=== PATIENT | female | born 1970 | race Caucasian/White ===

== ENCOUNTER → 2018-11-09 10:59 | Outpatient (CLI) | payer BC, SELFPAY ==
[2018-11-09 12:07] LABS: Hemoglobin A1c 7.8 % (4.2-6.3)
[2018-11-09 12:11] LABS: ALB/GLOB Ratio 0.9 RATIO (0.9-2.4); AST(SGOT) 14 U/L (15-37); Alanine Aminotransfer ALT/SGPT 26 U/L (13-56); Albumin, Serum 3.7 g/dL (3.2-5.0); Alkaline Phosphatase 126 U/L (45-117); Anion Gap 11 (5-15); BUN 10 mg/dL (7-18); BUN/Creat Ratio 12.8 RATIO (10-20); Calcium,Total 8.9 mg/dL (8.5-10.1); Chloride 106 mmol/L (98-107); Creatinine, Serum 0.78 mg/dL (0.55-1.02); EST Glomerular Filtration Rate 84 mL/min (>60); Est Glom Filt Rate - Afr Amer 102 mL/min (>60); Globulin 4.1 g/dL (2.2-4.2); Glucose 128 mg/dL (74-106); Potassium 3.8 mmol/L (3.5-5.1); Protein, Total 7.8 g/dL (6.4-8.2); Sodium Level 143 mmol/L (136-145); Thyroid Stim Hormone (TSH) 2.57 uIU/mL (0.358-3.74)
--- OUTSIDE RECORDS SUMMARY | 2019-02-11 00:15 | XMS RPT_ITS ---
:1970 Author Organization [facility] Care Team Providers Name Role Phone Stacy Bullard PA-C Attending Unavailable Stacy Bullard PA-C Referring Unavailable Stacy Bullard PA-C Primary Care Unavailable PROBLEMS PROBLEMS DATE TYPE CONDITION / CODE ATTENDING STATUS SOURCE 11/09/2018 Unknown E11.9 - Type 2 Stacy Bullard diabetes mellitus PA-C [facility] complications / Repository E11.9(ICD-10) 11/09/2018 Unknown E03.9 - [place] Stacypresley Abraham Hypothyroidism, PA-C Community unspecified / Hospital E03.9(ICD-10) Repository PROCEDURES PROCEDURES No Procedure Records FoundRESULTS RESULTS HEMOGLOBIN A1C Collected: 11/09/2018 Status: F Source: [place] 11:11 AM [facility] REPOSITORY TYPE CODE TESTS RESULT OUT OF RANGE REFERENCE UNITS LAB L501.9985 4.2-6.3 % High HGB A1C 7.8 Performed By: #### L501.9985 #### [facility] [address] [place], [address] COMPREHENSIVE METABOLIC Collected: 11/09/2018 Status: F Source: [facility] 11:11 AM [facility] REPOSITORY TYPE CODE TESTS RESULT OUT OF RANGE REFERENCE UNITS LAB L501.0100 74-106 mg/dL High GLU 128 Result Comment: Fasting Glucose result greater than or equal to 126 mg/dL suggests DIABETES MELLITUS per A.D.A. criteria. Please note revised GLUCOSE reference range effective 2017. LAB L501.1000 7-18 mg/dL Normal BUN 10 LAB L501.1100 0.55-1.02 mg/dL Normal CREAT,SERUM 0.78 Result Comment: The validity of the calculated GFR AND GFRAA in patients over 70 years has not been determined. Clinical correlation is essential. LAB L501.1110 >60 mL/min Normal EST GFR 84 Result Comment: Non- GFR Calc LAB L501.1115 >60 mL/min Normal EST GFR - AA 102 Result Comment: GFR Calc LAB L501.1300 10-20 RATIO Normal BUN/CRE 12.8 LAB L501.1500 6.4-8.2 g/dL T Normal PROT 7.8 LAB L501.1800 3.2-5.0 g/dL Normal ALB 3.7 LAB L501.1950 2.2-4.2 g/dL Normal GLOB 4.1 LAB L501.2000 0.9-2.4 RATIO Normal A/G 0.9 LAB L501.2200 8.5-10.1 mg/dL CA Normal 8.9 LAB L501.4100 15-37 U/L Low AST 14 LAB L501.4305 45-117 U/L High ALK P 126 LAB L501.4405 13-56 U/L Normal ALT 26 LAB L501.4600 0.20-1.00 mg/dL T Normal BILI 0.40 LAB L501.5300 136-145 mmol/L NA Normal 143 LAB L501.5600 3.5-5.1 mmol/L K Normal 3.8 LAB L501.5900 98-107 mmol/L CL Normal 106 LAB L501.6100 21.0-32.0 mmol/L Normal CO2 26.0 LAB L501.6200 5-15 Normal GAP 11 Performed By: #### L500.4050, L501.9520 #### [facility] [address] [place], [place], [id number] THYROID STIM HORMONE Collected: 11/09/2018 Status: F Source: [facility] ([facility]) 11:11 AM [facility] REPOSITORY TYPE CODE TESTS RESULT OUT OF RANGE REFERENCE UNITS LAB L501.9520 0.358-3.74 uIU/mL Normal TSH 2.57 Performed By: #### L500.4050, L501.9520 #### [facility] [address] [place], [address] ALLERGIES ALLERGIES No Allergies Records FoundENCOUNTERS ENCOUNTERS ADMIT/DISCHARGE ACCOUNT ADMITTING ENCOUNTER LOCATION SOURCE NUMBER CLASS 11/09/2018 [id number] Ambulatory [place] [facility] 8 [facility] ing:LAB Repository PAYERS PAYERS ENCOUNTER GUARANTOR PAYER SUBSCRIBER SOURCE 11/09/2018 Mark Amin219 Primary Mark Abraham Home Insurance:ANTHEMPolic HallDOB: Counts Include [address] [facility] larissa Hoskins Number: [id number] [address]Nip: [id number] Repository tuyet Date:[id number] () [address], [place] [address]AF: 11/09/2018 Secondary NOT GIVENCAYETANO Dom[facility] Insurance:SELF PAY [facility] Number: Effective Repository Date:2018-11-09
== END ==
PROVIDERS: Family Provider Family Medicine; PCP Family Medicine; Referring Provider Family Medicine; Visit Provider Family Medicine
DX: E03.9 Hypothyroidism, unspecified (principal); E11.9 Type 2 diabetes mellitus without complications
CPT/HCPCS: 36415; 80053; 83036; 84443

== ENCOUNTER 2019-03-24 19:35 | Emergency (ER) | payer BC, SELFPAY ==
[2019-03-24 19:36] VITALS: BP 159/103; PULSE 97; RESP 20; TEMP 36.6; O2SAT 95; BMI 48.6
[2019-03-24 20:16] LABS: Color, Urine Yellow (Yellow); Glucose, Dipstick Normal (Normal); Ketone-Dipstick 5 mg/dl (Negative); Leukocyte Esterase-Dipstick 25 /ul (Negative); Nitrite-Dipstick Negative (Negative); Occult Blood-Urine 25 /ul (Negative); Protein-Dipstick 30 mg/dl (Negative); Urine Clarity Clear (Clear); Urine Urobilinogen 1 mg/dl (Normal)
[2019-03-24 20:19] LABS: Urine Bilirubin Dipstick 1 mg/dL (Negative)
[2019-03-24 20:22] LABS: Bacteria 1+ /hpf (None Seen); Mucous, Urine 1+ /hpf (<or=2+); Red Blood Cells-Urine 0-5 SEEN /hpf (0-5); Squamous Epithelial Cells - UA 5-10 SEEN /hpf (5-10); White Blood Cells 0-5 SEEN /hpf (0-5)
[2019-03-24 20:22] LABS: Absolute Lymphocyte Count 1.68 X10^3/ul (0.83-4.51); Absolute Neutrophil Count 10.8 X10^3/uL (2.0-7.7); Basophil# 0.03 X10^3/uL; Basophil% 0.2 % (0-1); Eosinophil# 0.23 X10^3/uL; Eosinophils% 1.7 % (0-5); Hematocrit 39.4 % (37-47); Hemoglobin 13.1 g/dl (12.0-15.0); Lymphocyte # 1.68 X10^3/ul (4.0); Lymphocyte % 12.5 % (19-41); Mean Corp Hgb Conc 33.2 g/gl (32-36); Mean Corpuscular Hgb 29.7 pg (27.0-32.0); Mean Corpuscular Volume 89.3 fL (81-99); Mean Platelet Vol. 9.9 fl (6.2-12.0); Monocyte# 0.67 X10^3/uL; Neutrophil # 10.77 X10^3/uL (2.7-7.7); Neutrophil % 80.4 % (47-70); Platelet Count 260 K/mm3 (150-450); RBC Distribution Width CV 13.5 % (11.6-14.6); RBC Distribution Width SD 44.2 fl (35.1-43.9); Red Blood Count 4.41 M/mm3 (4.2-5.4); White Blood Count 13.4 K/mm3 (4.4-11.0)
[2019-03-24 20:24] LABS: POSITIVE COUNT NO; POSITIVE DIFFERENTIAL NO; POSITIVE MORPHOLOGY NO
[2019-03-24 20:37] LABS: Anion Gap 5 (5-15); BUN 12 mg/dL (7-18); BUN/Creat Ratio 10.9 RATIO (10-20); Calcium,Total 9.5 mg/dL (8.5-10.1); Chloride 103 mmol/L (98-107); EST Glomerular Filtration Rate 56 mL/min (>60); Est Glom Filt Rate - Afr Amer 68 mL/min (>60); Estimated Creatinine Clearance 63.78 ml/min; Glucose 208 mg/dL (74-106); Sodium Level 136 mmol/L (136-145)
[2019-03-24 20:40] LABS: Internal QC Validated? YES +Cl - CLEAR BKGD; Pregnancy, Serum, hCG Quali. NEGATIVE Negative
[2019-03-24 20:51] VITALS: BP 137/78; PULSE 91; RESP 15; O2SAT 97
[2019-03-24 21:00] LABS: Bedside Glucose 245 mg/dL (70-110)
--- NOTE | 2019-03-24 21:55 | US_ITS ---
STUDY: ABDOMINAL ULTRASOUND - RIGHT UPPER QUADRANT REASON FOR VISIT: Female, 48 years old. Abdominal pain. TECHNIQUE: Ultrasound evaluation of the right upper quadrant was performed with real-time and static ocampo-scale imaging. TECHNICAL QUALITY: Adequate. COMPARISON: None. FINDINGS: Liver: The liver measures 22.8 cm. There is increased echogenicity consistent with fatty infiltration. The bile ducts are within normal limits. There is hepatic color flow. The direction of portal flow is hepatopetal. There is no demonstrated mass lesion. Gallbladder: Normal distended gallbladder. The gallbladder wall measures 2.6 mm. There is a negative sonographic Paz's sign. There is no pericholecystic fluid. There are multiple echogenic structures within the gallbladder, consistent with multiple gallstones. Common Bile Duct (C.B.D.): The common bile duct measures 5.0 mm. Pancreas: Normal size of the head, body and tail of the pancreas. There is normal echogenicity of the pancreas. There is no demonstrated pancreatic mass or cyst. Right Kidney: Normal size of the right kidney. The right kidney measures 13.4 cm in length. Normal renal cortex. There is no demonstrated renal mass or cyst. There is no right hydronephrosis. US/Gallbladder IMPRESSION: Fatty infiltration of the liver associated with hepatomegaly. Cholelithiasis with no associated gallbladder wall thickening, pericholecystic fluid nor positive sonographic Paz's sign. Electronically Signed: Neelima Mary MD at 22:43 EDT Tel , Service support ,
[2019-03-24 22:38] LABS: AST(SGOT) 14 U/L (15-37); Alanine Aminotransfer ALT/SGPT 26 U/L (13-56); Albumin, Serum 4.2 g/dL (3.2-5.0); Alkaline Phosphatase 135 U/L (45-117); Bilirubin, Direct 0.11 mg/dL (0.00-0.30); Globulin 3.9 g/dL (2.2-4.2); Protein, Total 8.1 g/dL (6.4-8.2)
[2019-03-24 22:48] VITALS: BP 130/57; PULSE 78; RESP 16; O2SAT 98
[2019-03-24 22:51] LABS: Lipase 82 U/L (73-393)
--- NOTE | 2019-03-24 23:24 | ED.VISSUMM ---
- ER Visit Summary Date of Service: 03/24/19 Chief Complaint: Abdominal pain History of Present Illness: The patient is a 48 F who states that she has been developing upper abdominal right upper quadrant pain with eating. She went saw her doctor today was felt this probably gallbladder nature and had a ultrasound scheduled for next week. She states that today she had some taco salad for lunch. Later in the day she began to have nausea vomiting and worsening abdominal pain. She also notes some diarrhea. Physical Examination: Afebrile vital signs are stable Gen: Well-nourished well-developed obese Head: Normocephalic atraumatic Eyes: Perrl EOMI ENT: TMs clear no rhinorrhea moist mucous membranes Neck: Supple no lymphadenopathy no JVD nontender CVS: Regular rate rhythm no murmurs normal S1-S2 Respiratory: No distress clear to auscultation bilaterally chest nontender Abdomen: Soft mildly tender in the right upper quadrant without guarding or rebound r nondistended normal bowel sounds no masses Back: Nontender Extremity: Nontender no edema Skin: Normal color no rash Neuro: alert orientated ?3 CN II-XII intact normal strength sensation reflexes gait cerebellar Psych: Normal affect normal mood Test Results: White count is 13 creatinine 1.1. Lipase negative no evidence of biliary obstruction. Ultrasound of the gallbladder demonstrated cholelithiasis with no evidence of common bile duct dilatation or pericholecystic fluid. Emergency Department Course and Treatment: I write the patient of Nolan. She is to call surgery in the morning for follow-up. Dr. Olvera is on-call tonight. Return instructions given and understood. Impression: 1. Gallstones 2. Biliary colic This note was generated with XMS Penvision dictation software. It may contain incorrect words, spelling, and punctuation that were not noted in review of the chart prior to signing ED Disposition - Plan for ED Patient: Disposition: Home or Assisted Living Instructions: What are Gallstones? Prescriptions: Hydrocodone Bitart/Apap 5-325 [[place] 5MG-325MG] 1 tab PO Q6H PRN PRN 3 Days #12 tab PRN Reason: Pain Ondansetron [Zofran Odt] 4 mg PO Q6H PRN PRN #10 tab PRN Reason: Nausea Referrals: Elizabeth Olvera MD [STAFF PHYSICIAN] - As soon as possible
--- NOTE | 2019-03-24 23:28 | ED.DCSUM_ITS ---
- ER Visit Summary Date of Service: 03/24/19 Chief Complaint: Abdominal pain History of Present Illness: The patient is a 48 F who states that she has been developing upper abdominal right upper quadrant pain with eating. She went saw her doctor today was felt this probably gallbladder nature and had a ultrasound scheduled for next week. She states that today she had some taco salad for lunch. Later in the day she began to have nausea vomiting and worsening abdominal pain. She also notes some diarrhea. Physical Examination: Afebrile vital signs are stable Gen: Well-nourished well-developed obese Head: Normocephalic atraumatic Eyes: Perrl EOMI ENT: TMs clear no rhinorrhea moist mucous membranes Neck: Supple no lymphadenopathy no JVD nontender CVS: Regular rate rhythm no murmurs normal S1-S2 Respiratory: No distress clear to auscultation bilaterally chest nontender Abdomen: Soft mildly tender in the right upper quadrant without guarding or rebound r nondistended normal bowel sounds no masses Back: Nontender Extremity: Nontender no edema Skin: Normal color no rash Neuro: alert orientated ?3 CN II-XII intact normal strength sensation reflexes gait cerebellar Psych: Normal affect normal mood Test Results: White count is 13 creatinine 1.1. Lipase negative no evidence of biliary obstruction. Ultrasound of the gallbladder demonstrated cholelithiasis with no evidence of common bile duct dilatation or pericholecystic fluid. Emergency Department Course and Treatment: I write the patient of Nolan. She is to call surgery in the morning for follow-up. Dr. Olvera is on- call tonight. Return instructions given and understood. Impression: 1. Gallstones 2. Biliary colic This note was generated with Interlude dictation software. It may contain incorrect words, spelling, and punctuation that were not noted in review of the chart prior to signing ED Disposition - Plan for ED Patient: Disposition: Home or Assisted Living Instructions: What are Gallstones? Prescriptions: Hydrocodone Bitart/Apap 5-325 [[place] 5MG-325MG] 1 tab PO Q6H PRN PRN 3 Days #12 tab PRN Reason: Pain Ondansetron [Zofran Odt] 4 mg PO Q6H PRN PRN #10 tab PRN Reason: Nausea Referrals: Elizabeth Olvera MD [STAFF PHYSICIAN] - As soon as possible
[2019-03-25 00:07] VITALS: BP 124/76; PULSE 79; RESP 16; O2SAT 99
[2019-03-25] MEDS: Ondansetron ODT 4 MG Tablet PO (00:16)
[2019-03-25] MEDS: HYDROcodone Bitartrate/Apap 5/325 Tablet PO (00:16)
== END 2019-03-25 00:19 | disposition home or self-care (01) ==
PROVIDERS: Emergency Provider Emergency Medicine; Family Provider Family Medicine; PCP Family Medicine
DX: K80.20 Calculus of gallbladder without cholecystitis without obstruction (principal); E66.9 Obesity, unspecified; K21.9 Gastro-esophageal reflux disease without esophagitis; E11.9 Type 2 diabetes mellitus without complications; Z72.0 Tobacco use; Z79.84 Long term (current) use of oral hypoglycemic drugs
CPT/HCPCS: 76705; 80048; 80076; 81001; 82962; 83690; 84703; 85025; 87086; 87088; 99283; A4216

== ENCOUNTER 2019-04-09 05:18 | Day surgery (SDC) | payer BC, SELFPAY ==
[2019-04-09] VITALS (8 sets, daily range): BP systolic 110–130; BP diastolic 65–77; PULSE 60–69; RESP 16–18; TEMP 36.2–36.9; O2SAT 92–99; BMI 47.8
--- NOTE | 2019-04-09 05:33 | EKG12_ITS ---
Test Reason : PRE-OP Blood Pressure : / mmHG Vent. Rate : 076 BPM Atrial Rate : 076 BPM P-R Int : 150 ms QRS Dur : 088 ms QT Int : 370 ms P-R-T Axes : 050 040 032 degrees QTc Int : 416 ms Normal sinus rhythm Normal ECG Confirmed by SAMIA PAEZ, ZANDRA ([id number]), managing editor [place] ([id number]) on 04/12/2019 4:32:52 PM Referred By: Elizabeth Olvera Confirmed By:ZANDRA GRACIA MD
[2019-04-09 05:51] LABS: Internal QC Validated? YES +Cl - CLEAR BKGD; Pregnancy, Urine Negative Negative
[2019-04-09 06:32] LABS: Absolute Lymphocyte Count 1.71 X10^3/ul (0.83-4.51); Absolute Neutrophil Count 4.3 X10^3/uL (2.0-7.7); Basophil# 0.04 X10^3/uL; Basophil% 0.6 % (0-1); Eosinophil# 0.25 X10^3/uL; Eosinophils% 3.7 % (0-5); Hematocrit 35.5 % (37-47); Hemoglobin 11.4 g/dl (12.0-15.0); Lymphocyte # 1.71 X10^3/ul (4.0); Lymphocyte % 25.2 % (19-41); Mean Corp Hgb Conc 32.1 g/gl (32-36); Mean Corpuscular Hgb 29.1 pg (27.0-32.0); Mean Corpuscular Volume 90.6 fL (81-99); Mean Platelet Vol. 9.9 fl (6.2-12.0); Monocyte# 0.45 X10^3/uL; Monocyte% 6.6 % (0-10); Neutrophil # 4.32 X10^3/uL (2.7-7.7); Neutrophil % 63.6 % (47-70); Platelet Count 233 K/mm3 (150-450); RBC Distribution Width CV 13.5 % (11.6-14.6); RBC Distribution Width SD 44.1 fl (35.1-43.9); Red Blood Count 3.92 M/mm3 (4.2-5.4); White Blood Count 6.8 K/mm3 (4.4-11.0)
[2019-04-09 06:34] LABS: POSITIVE COUNT NO; POSITIVE DIFFERENTIAL NO; POSITIVE MORPHOLOGY NO
[2019-04-09 06:50] LABS: Bedside Glucose 152 mg/dL (70-110)
[2019-04-09 07:09] LABS: Hemoglobin A1c 8.9 % (4.2-6.3)
--- NOTE | 2019-04-09 07:14 | PCM.DC.GB ---
Discharge Diet: No Restrictions - drink plenty of fluids, avoid carbonated beverages for a couple of days Discharge Activity: Return to Normal Activity, May not drive while taking narcotic pain medications. Return to work on:: 04/26/19 Lifting Restrictions: no lifting/pushing/pulling greater than 20 pounds for 2 weeks Call your doctor if your incision/area has: Continuous Slow Oozing, Foul Smelling Discharge Call your doctor if you observe: Fever of 101 or Higher Additional Dressing/Incision Instructions:: Leave dressings in place. May get wet in shower. Do not soak - no tub baths/swimming Additional Instructions: Recommended pain medication regimen: take 650 mg acetaminophen, then in three hours take 600 mg ibuprofen, then in three hours take 650 mg acetaminophen, then in three hours take 600 mg ibuprofen, and so on Take pain narcotic medications for breakthrough pain and at night Allergies/Adverse Reactions: Allergies adhesive tape Allergy (Verified 04/02/19 11:04) Rash cobalt Allergy (Verified 04/02/19 11:03) Anaphylaxis Latex, Natural Rubber Allergy (Verified 04/02/19 11:03) Rash nickel Allergy (Verified 04/02/19 11:03) Rash Medications to take at Discharge Levothyroxine [Synthroid] 75 mg PO DAILY 03/24/19 Metformin HCl 1,000 mg PO BID 03/24/19 Ondansetron [Zofran Odt] 4 mg PO Q6H PRN PRN #10 tab 03/24/19 Hydrocodone/Acetaminophen [Hydrocodone-Acetamin 5-325 mg] 1 tab PO Q6H PRN PRN 04/02/19 Hydrocodone/Acetaminophen [[place] 5-325 Tablet] 1 ea PO Q8 PRN 5 Days #15 tab 04/09/19 The following prescriptions were given: Hydrocodone/Acetaminophen [[place] 5-325 Tablet] 1 ea PO Q8 PRN 5 Days #15 tab PRN Reason: Mod-Severe Pain (4-09/02) Orders to be completed after discharge: ,Urine Time Frame: 04/09/19, Location: Laboratory Primary Care Physician: Stacy Bullard PA-C [Primary Care Provider] - Test Results: Test results from this visit will be discussed in further detail at your follow-up appointment, if applicable. Please Follow Up With: Elizabeth Olvera MD - call When: to be seen in 7-10 days, please call for date and time, thank you
--- NOTE | 2019-04-09 07:17 | DCINST_ITS ---
Discharge Diet: No Restrictions - drink plenty of fluids, avoid carbonated beverages for a couple of days Discharge Activity: Return to Normal Activity, May not drive while taking narcotic pain medications. Return to work on:: 04/26/19 Lifting Restrictions: no lifting/pushing/pulling greater than 20 pounds for 2 weeks Call your doctor if your incision/area has: Continuous Slow Oozing, Foul Smelling Discharge Call your doctor if you observe: Fever of 101 or Higher Additional Dressing/Incision Instructions:: Leave dressings in place. May get wet in shower. Do not soak - no tub baths/swimming Additional Instructions: Recommended pain medication regimen: take 650 mg acetaminophen, then in three hours take 600 mg ibuprofen, then in three hours take 650 mg acetaminophen, then in three hours take 600 mg ibuprofen, and so on Take pain narcotic medications for breakthrough pain and at night Allergies/Adverse Reactions: Allergies adhesive tape Allergy (Verified 04/02/19 11:04) Rash cobalt Allergy (Verified 04/02/19 11:03) Anaphylaxis Latex, Natural Rubber Allergy (Verified 04/02/19 11:03) Rash nickel Allergy (Verified 04/02/19 11:03) Rash Medications to take at Discharge Levothyroxine [Synthroid] 75 mg PO DAILY 03/24/19 Metformin HCl 1,000 mg PO BID 03/24/19 Ondansetron [Zofran Odt] 4 mg PO Q6H PRN PRN #10 tab 03/24/19 Hydrocodone/Acetaminophen [Hydrocodone-Acetamin 5-325 mg] 1 tab PO Q6H PRN PRN 04/02/19 Hydrocodone/Acetaminophen [[place] 5-325 Tablet] 1 ea PO Q8 PRN 5 Days #15 tab 04/09/19 The following prescriptions were given: Hydrocodone/Acetaminophen [[place] 5-325 Tablet] 1 ea PO Q8 PRN 5 Days #15 tab PRN Reason: Mod-Severe Pain (4-09/02) Orders to be completed after discharge: ,Urine Time Frame: 04/09/19, Location: Laboratory Primary Care Physician: Stacy Bullard PA-C [Primary Care Provider] - Test Results: Test results from this visit will be discussed in further detail at your follow- up appointment, if applicable. Please Follow Up With: Elizabeth Olvera MD - call When: to be seen in 7-10 days, please call for date and time, thank you
--- NOTE | 2019-04-09 07:30 | RAD_ITS ---
STUDY: INTRAOPERATIVE CHOLANGIOGRAM. REASON FOR EXAM: Female, 48 years old. Laparoscopic cholecystectomy. FLUOROSCOPY TIME (if supplied): (0:04) minutes/seconds TECHNIQUE: Intraoperative cholangiogram was performed by the surgeon. Imaging was submitted. COMPARISON: None. FINDINGS: The intrahepatic biliary ducts are unremarkable. The common bile duct is not dilated. No intraluminal filling defect is seen. There is free flow of contrast into the duodenum. RAD/Cholangiogram/ O R,Initial IMPRESSION: Unremarkable intraoperative cholangiogram. Electronically Signed: Miguel Beach, at 9:47 EDT , Service support ,
--- NOTE | 2019-04-09 07:30 | GALL_PTH ---
PATIENT: JOYCE TOSCANO LOC: [facility] [place] U[place][id number] AGE/SX: 48/F ROOM: RE04/09/[address]: Dr. Elizabeth Olvera MD : 1970 BED: DIS: 04/09/2019 SPEC #: [id number] RECD: 04/09/19 13:12 STATUS: RONALD REJavid #: [id number] BRENDA: 04/09/19 07:[address]: Elizabeth Olvera DEPT: SURGICAL PATHOLOGY RECD BY: Frederick Su ENTERED: 04/09/19 14:12 SP TYPE: DEQUAN HOWELL DR: Stacy Bullard PA-C Tissues: Gallbladder, NOS Procedures: Surgery Specimen Level III HEADER OPERATION: Laparoscopic cholecystectomy with IOC PRE-OP DIAGNOSIS: Right upper quadrant pain, cholelithiasis TISSUE SUBMITTED: Gallbladder MICROSCOPIC DIAGNOSIS Gallbladder, cholecystectomy: Chronic cholecystitis. CE:honey 04/13/19 MICROSCOPIC DESCRIPTION Slides are reviewed. GROSS DESCRIPTION Received is one container labeled with the patient's name and designated gallbladder. The specimen consists of a gallbladder measuring 10 x 3.5 x 3 cm. The external surface is smooth and glistening. Focally, it is granular, hemorrhagic and contains cautery artifact. The lumen of the gallbladder contains yellow-green mucoid bile and no calculi are identified. The mucosa is bile-stained and without any mass lesions. The gallbladder wall averages 0.2 cm in thickness and is free of mass lesions. Cardiac Exercise Specialist sections of the gallbladder and the cystic duct are submitted in one cassette. / AM:honey 04/12/19 TC:5 CPT: 96554
--- NOTE | 2019-04-09 08:34 | PCM.OPRPT ---
Report of Operation Date of Procedure: 04/09/19 Pre-Operative Diagnosis: cholelithiasis, abdominal pain Post-Operative Diagnosis: cholelithiasis, chronic cholecystitis Surgery/Procedure Performed:: laparoscopic cholecystectomy with cholangiograms Description of Surgical Findings:: normal intraoperative cholangiograms, chronic cholecystitis with cholelithiasis leather cartridge belt maker: Diane Martines Type of Anesthesia:: General Anesthesiologist: Nilo Alvarado Specimen's removed: gallbladder and contents Estimated Blood Loss (mL): <10 ml Fluids Replaced: 600 ml RL Description of Procedure: After informed consent was given, the patient was brought to the Operating Room. Appropriate time out protocol was followed. She was then placed in the supine position. The patient was then placed under general endotracheal anesthesia. The abdomen was then prepped with a sterile surgical skin preparation and sterile surgical drapes were placed. A skin fold superior to the umbilical dimple was grasped with penetrating clamps and the skin and subcutaneous tissues were infiltrated with 0.25% marcaine with epinephrine. A skin incision was then made with a 15 blade scalpel. The anterior abdominal wall was elevated and a Veress needle was carefully inserted into the intraabdominal cavity. It was checked to be in the proper position with a normal saline drop test. A CO2 pneumoperitoneum was then created. Once this was achieved, then the Veress needle was removed and an 11mm trocar was placed in its stead. A 10mm laparoscope was then inserted into the trocar and careful attention was directed to the intraabdominal contents. There was no evidence of injury to any intraabdominal organs from insertion of the Veress needle or the trocar. Under direct visualization, a 5mm subxiphoid trocar and two lateral 5mm right subcostal trocars were placed. The skin and subcutaneous tissues at these sites were infiltrated with 0.25% marcaine with epinephrine prior to placement of these trocars. Attention was then directed to the right upper quadrant of the abdomen. Graspers were placed in the lateral trocars to grasp the distal aspect of the gallbladder and direct it cephalad and to grasp the gallbladder at Baldwin?s pouch and direct it laterally. Dissection then began on the proximal gallbladder continuing down to the area of the triangle of Calot to bluntly dissect out the cystic duct. The neck of the gallbladder was identified and blunt dissection continued to dissect out a segment of the cystic duct. A clip was then placed on the neck of the gallbladder. A small ductotomy was then made. A Ranfac catheter was brought in through a separate skin incision and placed into the cystic duct. An intraoperative cholangiogram was performed under fluoroscopy. The xray revealed no lesions in the common bile duct, arborization of the biliary tree, and good flow into the duodenum. The Ranfac catheter was then removed and two clips were placed proximal to the ductotomy and the cystic duct was then transected. The cystic artery was visualized and bluntly isolated and then two clips were placed proximally and one clip distally and then it was transected between the proximal and distal clips. The gallbladder was then from the liver bed using electrocautery and thus able to be brought out of the umbilical port. It was then forwarded to pathology for analysis. The liver bed was carefully examined. There was no evidence of bile leakage or bleeding. The cystic duct stump and cystic artery stump had their clips intact and there was no evidence of bile leakage or bleeding. The remainder of the abdomen was grossly normal. The CO2 was released and all trocars removed intact. The periumbilical fascia was approximated with a [id number] 0 vicryl suture. All skin incision were closed with 4-0 monocryl in a subdermal fashion. Cavilol and Steristrips were used to reinforce the skin closure. Sterile dressings were applied to all wounds. The patient was extubated and brought to the Recovery Room in stable condition. - Complications none noted - Admit VTE Documentation VTE Present on Admission: Yes VTE Mechan Device Prophylaxis: SCD's
--- NOTE | 2019-04-09 08:37 | OP.PCM_ITS ---
Report of Operation Date of Procedure: 04/09/19 Pre-Operative Diagnosis: cholelithiasis, abdominal pain Post-Operative Diagnosis: cholelithiasis, chronic cholecystitis Surgery/Procedure Performed:: laparoscopic cholecystectomy with cholangiograms Description of Surgical Findings:: normal intraoperative cholangiograms, chronic cholecystitis with cholelithiasis body painter: Diane Martines Type of Anesthesia:: General Anesthesiologist: Nilo Alvarado Specimen's removed: gallbladder and contents Estimated Blood Loss (mL): <10 ml Fluids Replaced: 600 ml RL Description of Procedure: After informed consent was given, the patient was brought to the Operating Room. Appropriate time out protocol was followed. She was then placed in the supine position. The patient was then placed under general endotracheal anesthesia. The abdomen was then prepped with a sterile surgical skin preparation and sterile surgical drapes were placed. A skin fold superior to the umbilical dimple was grasped with penetrating clamps and the skin and subcutaneous tissues were infiltrated with 0.25% marcaine with epinephrine. A skin incision was then made with a 15 blade scalpel. The anterior abdominal wall was elevated and a Veress needle was carefully inserted into the intraabdominal cavity. It was checked to be in the proper position with a normal saline drop test. A CO2 pneumoperitoneum was then created. Once this was achieved, then the Veress needle was removed and an 11mm trocar was placed in its stead. A 10mm laparoscope was then inserted into the trocar and careful attention was directed to the intraabdominal contents. There was no evidence of injury to any intraab dominal organs from insertion of the Veress needle or the trocar. Under direct visualization, a 5mm subxiphoid trocar and two lateral 5mm right subcostal trocars were placed. The skin and subcutaneous tissues at these sites were infiltrated with 0.25% marcaine with epinephrine prior to placement of these trocars. Attention was then directed to the right upper quadrant of the abdomen. Graspers were placed in the lateral trocars to grasp the distal aspect of the gallbladder and direct it cephalad and to grasp the gallbladder at Baldwin?s pouch and direct it laterally. Dissection then began on the proximal gallbladder continuing down to the area of the triangle of Calot to bluntly dissect out the cystic duct. The neck of the gallbladder was identified and blunt dissection continued to dissect out a segment of the cystic duct. A clip was then placed on the neck of the gallbladder. A small ductotomy was then made. A Ranfac catheter was brought in through a separate skin incision and placed into the cystic duct. An intraoperative cholangiogram was performed under fluoroscopy. The xray revealed no lesions in the common bile duct, arborization of the biliary tree, and good flow into the duodenum. The Ranfac catheter was then removed and two clips were placed proximal to the ductotomy and the cystic duct was then transected. The cystic artery was visualized and bluntly isolated and then two clips were placed proximally and one clip distally and then it was transected between the proximal and distal clips. The gallbladder was then from the liver bed using electrocautery and thus able to be brought out of the umbilical port. It was then forwarded to pathology for analysis. The liver bed was carefully examined. There was no evidence of bile leakage or bleeding. The cystic duct stump and cystic artery stump had their clips intact and there was no evidence of bile leakage or bleeding. The remainder of the abdomen was grossly normal. The CO2 was relea sed and all trocars removed intact. The periumbilical fascia was approximated with a [id number] 0 vicryl suture. All skin incision were closed with 4-0 monocryl in a subdermal fashion. Cavilol and Steristrips were used to reinforce the skin closure. Sterile dressings were applied to all wounds. The patient was extubated and brought to the Recovery Room in stable condition. - Complications none noted - Admit VTE Documentation VTE Present on Admission: Yes VTE Mechan Device Prophylaxis: SCD's
[2019-04-09 09:05] LABS: Bedside Glucose 168 mg/dL (70-110)
[2019-04-09] MEDS: HYDROcodone Bitartrate/Apap 5/325 Tablet PO (12:45)
== END 2019-04-09 12:55 | disposition home or self-care (01) ==
LOC: SDC 05:18 → AC 05:23
PROVIDERS: Anesthesiology; Family Provider Family Medicine; PCP Family Medicine; Referring Provider Surgery; Visit Provider Surgery
PROC: (CPT 47610; principal; 2019-04-09 07:10)
DX: K81.1 Chronic cholecystitis (principal); E66.01 Morbid (severe) obesity due to excess calories; E11.9 Type 2 diabetes mellitus without complications; E03.9 Hypothyroidism, unspecified; Z85.820 Personal history of malignant melanoma of skin; F17.210 Nicotine dependence, cigarettes, uncomplicated; K21.9 Gastro-esophageal reflux disease without esophagitis; Z68.42 Body mass index [BMI] 45.0-49.9, adult; Z79.84 Long term (current) use of oral hypoglycemic drugs; Z79.899 Other long term (current) drug therapy
CPT/HCPCS: 00790; 47563; 74300; 76000; 81025; 82962; 83036; 84443; 85025; 88304; 93005; J7120; A4216; J2405

== ENCOUNTER → 2020-03-13 09:41 | Outpatient (CLI) | payer BC, SELFPAY ==
[2019-04-09 06:03] VITALS: BMI 47.8
[2020-03-13 11:11] LABS: Hemoglobin A1c 7.8 % (4.2-6.3)
[2020-03-13 11:14] LABS: ALB/GLOB Ratio 0.9 RATIO (0.9-2.4); AST(SGOT) 17 U/L (15-37); Alanine Aminotransfer ALT/SGPT 25 U/L (13-56); Albumin, Serum 3.8 g/dL (3.2-5.0); Alkaline Phosphatase 128 U/L (45-117); Anion Gap 6 (5-15); BUN 13 mg/dL (7-18); BUN/Creat Ratio 16.1 RATIO (10-20); Chloride 104 mmol/L (98-107); Cholesterol 201 mg/dL (200); Creatinine, Serum 0.81 mg/dL (0.55-1.02); EST Glomerular Filtration Rate 80 mL/min (>60); Est Glom Filt Rate - Afr Amer 97 mL/min (>60); Globulin 4.1 g/dL (2.2-4.2); Glucose 124 mg/dL (74-106); High Density Lipoprotein 42 mg/dL; Protein, Total 7.9 g/dL (6.4-8.2); Sodium Level 136 mmol/L (136-145); Thyroid Stim Hormone (TSH) 3.62 uIU/mL (0.358-3.74); Triglycerides 158 mg/dL; Very Low Density Lipoprotein 32 mg/dL (5-40)
== END ==
LOC: LAB.FUTURE 09:45 → LAB 09:47
PROVIDERS: PCP Family Medicine; Referring Provider Family Medicine; Visit Provider Family Medicine
DX: E11.9 Type 2 diabetes mellitus without complications (principal); E03.9 Hypothyroidism, unspecified; E78.5 Hyperlipidemia, unspecified
CPT/HCPCS: 36415; 80053; 80061; 83036; 84443

== ENCOUNTER → 2021-10-26 14:42 | Outpatient (CLI) | payer BC, SELFPAY | PROVIDERS: PCP Family Medicine; Visit Provider Obstetrics & Gynecology | DX: Z11.3 Encounter for screening for infections with a predominantly sexual mode of transmission (principal); B37.3 Candidiasis of vulva and vagina ==

== ENCOUNTER → 2022-05-22 | Outpatient (CLI) | payer BC, SELFPAY ==
--- NOTE | 2022-05-22 12:12 | BI_ITS ---
MAMMOGRAPHY - BILATERAL SCREENING REASON FOR EXAM: Female, 51 years old. Routine annual screening examination. PERTINENT HISTORY: Non-contributory. TECHNIQUE: Digital bilateral breast don (3D mammographic acquisition) in the CC and MLO projections. 2-D mediolateral oblique (MLO) and craniocaudad (CC) views of both breasts were obtained. CAD: Full Field Digital Mammography with Computer Added Detection was performed. COMPARISON: Comparison is made with prior study dated 02/05/2017. FINDINGS: Breast Composition: There are scattered areas of fibroglandular density. There are no dominant masses or suspicious calcifications. Stable small benign appearing bilateral axillary nodes. No other significant abnormalities are identified. There has been no significant change since the prior study. BI/SCRN MAMM (CAD)W/DON BILAT IMPRESSION: Stable bilateral screening mammogram. Yearly follow-up mammogram recommended. (A) ASSESSMENT CATEGORY: BIRADS Category 2: Benign. A letter regarding these results will be sent to the patient by the facility within 30 days. Approximately 10% of breast cancers are not detected by mammography. A normal mammogram should not delay biopsy of a clinically suspicious abnormality. [id number] Electronically Signed: Miguel Beach MD at 13:15 EDT ,
== END | disposition home or self-care (01) ==
PROVIDERS: PCP Family Medicine; Visit Provider Family Medicine
DX: Z12.31 Encounter for screening mammogram for malignant neoplasm of breast (principal)
CPT/HCPCS: 77063; 77067

== ENCOUNTER → 2022-07-06 | Outpatient (CLI) | payer BC, SELFPAY ==
[2022-07-06 10:03] LABS: Hemoglobin A1c 6.3 % (3.8-5.6)
[2022-07-06 10:10] LABS: AST(SGOT) 17 U/L (15-37); Alanine Aminotransfer ALT/SGPT 29 U/L (13-56); Anion Gap 7 (5-15); BUN 9 mg/dL (7-18); Calcium,Total 9.2 mg/dL (8.5-10.1); Chloride 105 mmol/L (98-107); Cholesterol 110 mg/dL (200); EST Glomerular Filtration Rate 62 mL/min (>60); Est Glom Filt Rate - Afr Amer 76 mL/min (>60); Glucose 124 mg/dL (74-106); High Density Lipoprotein 39 mg/dL; Potassium 3.8 mmol/L (3.5-5.1); Sodium Level 137 mmol/L (136-145); T4 Free Direct 0.95 ng/dL (0.76-1.46); Thyroid Stim Hormone (TSH) 1.86 uIU/mL (0.358-3.74); Triglycerides 210 mg/dL; Very Low Density Lipoprotein 42 mg/dL (5-40)
== END | disposition home or self-care (01) ==
PROVIDERS: PCP Family Medicine
DX: E11.65 Type 2 diabetes mellitus with hyperglycemia (principal); E03.9 Hypothyroidism, unspecified; E78.2 Mixed hyperlipidemia; Z91.19 Patient's noncompliance with other medical treatment and regimen
CPT/HCPCS: 36415; 80048; 80061; 83036; 84439; 84443; 84450; 84460

== ENCOUNTER 2022-08-14 08:47 | Emergency (ER) | payer BC, SELFPAY ==
[2022-08-14 08:48] VITALS: BP 163/97; PULSE 88; RESP 16; TEMP 36.1; O2SAT 100; BMI 46.0
--- NOTE | 2022-08-14 09:07 | ED.VIS.BACK ---
HPI History of Present Illness Chief Complaint: Flank Pain Detail of Chief Complaint: Left back pain worse with movement. Informant: patient Onset/Context/Timing Onset: Days Context: Gradual Onset Timing: Continuous Quality: Sharp and Aching Location: Thoracic Current Severity: Moderate Maximum Severity: Moderate Worsened by: improves with Movement Relieved by: Remaining Still Associated Symptoms Associated Symptoms: Negative for Numbness, Tingling, Radiation to Right Leg, Radiation to Left Leg, Fever, Abdominal Pain, Dysuria, Unable to Ambulate, Unable to Transfer, Urinary Retention, Urinary Incontinence, Constipation or Fecal Incontinence Narrative Narrative: 32-year-old female past medical history of diabetes. She is never had a kidney stone. States about a week ago started having right back pain that moved to the left she said that now about a week. Its worse with movement. She denies any injury or trauma she had a fall a month ago. But nothing recently. She denies any fever or chills. No dysuria hematuria. Nothing particular makes the pain better other than remaining still and is worse with movement. It does not radiate to her abdomen or down her leg. She has no weakness or numbness. She has never had anything like this before. Prior similar symptoms: No Recent Illness/Hospitalization: No [facility] Medical History Diabetes Hypothyroidism Home Medications levothyroxine 75 mcg tablet 75 mg PO DAILY 03/24/19 [History Last Taken 04/08/19] metformin 1,000 mg tablet 1,000 mg PO BID 03/24/19 [History Last Taken 04/08/19] ondansetron 4 mg disintegrating tablet 4 mg PO Q6H PRN PRN Nausea #10 tabs 03/24/19 [Rx Last Taken 04/08/19] hydrocodone-acetaminophen 5-325mg 5mg-325mg 1 tab PO Q6H PRN PRN Pain 04/02/19 [History Last Taken 04/08/19] metaxalone 800 mg tablet 800 mg PO TID 7 days #21 tabs 08/14/22 [Rx Last Taken Unknown] Allergy/AdvReac Type Severity Reaction Status Date / Time adhesive tape Allergy Rash Verified 08/14/22 08:48 cobalt Allergy Anaphylaxis Verified 08/14/22 08:48 Latex, Natural Rubber Allergy Rash Verified 08/14/22 08:48 nickel Allergy Rash Verified 08/14/22 08:48 Social History Smoking Status: Current every day smoker tobacco type: cigarettes ROS ROS ED ROS Narrative Left back pain Review of Systems ROS Unobtainable: Denies due to encephalopathy Constitutional Constitutional ED: Denies chills or fever(s) Eyes Eyes: Denies blurry vision ENT ENT ED: Denies ear pain Cardiovascular Cardiovascular: Denies chest pain Respiratory/Chest Respiratory/Chest: Denies dyspnea Gastrointestinal Gastrointestinal: Denies abdominal pain Genitourinary Genitourinary ED: Denies dysuria or hematuria Musculoskeletal Musculoskeletal: Reports back pain; Denies arthralgias Integumentary Denies abscess Neurologic Neurologic: Denies headache(s) Psychiatric Psychiatric: Denies anxiety Endocrine Endocrinology: Denies cold intolerance Hematologic/Lymphatic Hematologic/Lymphatic: Denies easy bleeding Allergic/Immunologic Allergic/Immunologic ED: Denies mouth swelling EXAM Physical Exam Narrative Exam Narrative: 52-year-old female no acute distress standing up as I walked in the room. She said it hurts to move or to sit down. Vital signs stable afebrile. H EENT exam unremarkable. Neck nontender. Lungs are clear. Heart regular rhythm no murmur. Abdomen soft nontender normal bowel sounds no peritoneal signs. Moving all 4 extremities. 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 Normal motor strength in both lower extremities and sensation. Back spine is nontender. Her left paraspinal musculature at the lower thoracic upper lumbar area is tender consistent with a muscle spasm. Hurts with movement. There is no redness or warmth. There is no signs of trauma. Spine is nontender. Neurologic exam normal. Normal motor strength both upper and lower extremity and sensation. Const Vital Signs: 08/14/22 08:48 08/14/22 08:52 Temperature 97.0 F L Temperature Source Temporal Pulse Rate 88 Respiratory Rate 16 Respiratory Effort Normal Non-Labored Blood Pressure 163/97 H Blood Pressure Mean 119 Pulse Ox 100 Oxygen Delivery Method Room Air Positive well nourished, well developed and obese; Negative for cachectic, contractures or unkempt General Appearance ED: well developed and NAD; Negative for unkempt, cachectic, contractures or pallor Nutritional Appearance: obese; Negative for cachectic HEENT Reports moist mucous membranes; Denies dry mucous membranes Negative for trauma Mouth ED: No dry mucous membranes Mouth: No dry mucous membranes Eyes PERRL and EOMs intact bilaterally General Eye ED: Negative for pale conjunctiva, scleral icterus or other Neck no lymphadenopathy, supple and no JVD General: Negative for tenderness Thyroid: Negative for other Chest Wall Chest: Negative for other Resp normal respiratory effort and clear to auscultation bilaterally Effort and Inspection: Negative for pain with movement Auscultation: Negative for rales Percussion: Negative for other Cardio regular rate, regular rhythm, S1 normal heart sound, S2 normal heart sound and no murmurs Rate: Negative for bradycardia GI normal to inspection, nondistended, normoactive bowel sounds, soft to palpation, non-tender, non-distended and no masses Inspection: Negative for abdominal distention Palpation: Negative for tender or guarding Back/Spine Negative for normal to inspection or no thoracic nor lumbar tenderness Back/Spine Narrative: Left mid to lower back paraspinal tenderness consistent with muscle spasm. Spine nontender. General Back: Negative for CVA tenderness Cervical Spine: Negative for cervical spine tenderness Thoracic Spine / Upper Back: Negative for paraspinal muscle tenderness Lumbar Spine / Lower Back: ROM limited Extremity normal to inspection General Extremety ED: Negative for edema General Extremity: Negative for edema Neuro oriented x3 and no sensory deficits noted Sensorium / Orientation: alert; Negative for confused, lethargic or stuporous Sensory Exam: No other Motor Exam: strength 5/5 throughout Psych Appearance: Negative for unkempt Skin no rashes or lesions noted and no wounds General Skin Exam: Negative for jaundice or pallor Lesions: No lesion noted Rashes: No rashes noted Trauma: Negative for abrasion Wounds: Negative for wounds noted MDM MDM MDM Narrative Medical decision making narrative: 52-year-old that has left back pain consistent with myofascial spasm. It is reproducibly tender. She is having no urinary symptoms. I do not believe this to be a UTI or kidney stone. She has no abdominal pain. There is no radiation to her leg. She does not need any imaging. She does not need any labs. She will be treated with Skelaxin first dose given here. Placed on 3 times a day for a week. She will take Aleve at home and Tylenol. Hot shower bath. Massage. Follow-up if not improving. Discharge Plan Triage Chief Complaint: Flank Pain ED Provider: Elmer Bejarano Dx/Rx/DC Orders Clinical Impression: Back pain, Muscle spasm Instructions: ED Muscle Spasm Prescriptions: New metaxalone 800 mg tablet 800 mg PO TID 7 Days Qty: 21 0RF No Action levothyroxine 75 MCG tablet 75 mg PO DAILY metformin 1,000 MG tablet 1,000 mg PO BID ondansetron 4 MG tablet 4 mg PO Q6H PRN PRN (Reason: Nausea) Qty: 10 0RF hydrocodone-acetaminophen 1 EACH tablet 1 tab PO Q6H PRN PRN (Reason: Pain) Label Comments: take 1 tablet by mouth every 6 hours if needed for pain Primary Care Provider: Stacy Bullard Referrals: Stacy Bullard, PA-C [Primary Care Provider] - 1 Week if not improving Activity Restrictions/Additional Instructions: Exam and history are consistent with your back pain being caused by muscle spasm. Aleve for pain and inflammation. Tylenol also for pain. Hot shower, warm bath and massage. Skelaxin which is a muscle relaxant 3 times a day for a week. May stop early if the pain goes away. Disposition Disposition: Home, Self Care
[2022-08-14] MEDS: Metaxalone 800 MG Tablet PO (09:31)
== END 2022-08-14 09:32 | disposition home or self-care (01) ==
LOC: ED 09:17
PROVIDERS: Emergency Provider Emergency Medicine; PCP Family Medicine; Visit Provider Emergency Medicine
DX: M54.9 Dorsalgia, unspecified (principal); M62.838 Other muscle spasm; F17.210 Nicotine dependence, cigarettes, uncomplicated; E66.9 Obesity, unspecified
CPT/HCPCS: 99283

== ENCOUNTER → 2022-08-30 | Outpatient (CLI) | payer BC, SELFPAY ==
--- NOTE | 2022-08-30 06:09 | ECHOD_ITS ---
Reason For Study: CHEST PAIN Procedure This was a 2D Doppler, Color Flow transthoracic echocardiogram. Exam performed in department. Left Ventricle Normal LV size. Left ventricular systolic function is normal. The estimated ejection fraction is 60 %. No regional wall motion abnormalities noted. Right Ventricle Normal RV size. Normal systolic function. Atria Normal left atrium. Normal right atrium. Mitral Valve Normal mitral valve. Tricuspid Valve Normal tricuspid valve. Normal pulmonary artery pressure. Aortic Valve Normal aortic valve. Trisinus/trileaflet aortic valve. Pulmonic Valve Normal pulmonic valve. Great Vessels Normal aortic root. The pulmonary artery is normal size. Normal inferior vena cava. Pericardium/Pleural No pericardial effusion. MMode/2D Measurements & Calculations LVIDd: 5.4 cm IVSd: 0.80 cm Ao root diam: 3.7 cm LVIDs: 4.1 cm LVPWd: 0.92 cm RVDd: 3.6 cm FS: 24.5 % LAV(MOD-sp4): 42.4 ml LVAd ap4: 29.3 cm2 SV(MOD-sp4): 54.1 ml LVLd ap4: 7.3 cm EDV(MOD-sp4): 97.7 ml EDV(sp4-el): 99.7 ml LVAs ap4: 17.8 cm2 LVLs ap4: 5.8 cm ESV(MOD-sp4): 43.6 ml ESV(sp4-el): 46.0 ml EF(MOD-sp4): 55.3 % EF(sp4-el): 53.8 % SV(sp4-el): 53.6 ml LA A4 area: 16.3 cm2 LA dimension(2D): 3.5 cm RA A4 area: 17.5 cm2 Time Measurements MV dec time: 0.26 sec Doppler Measurements & Calculations MV E max gerhard: 83.9 cm/sec Lat Peak E' Gerhard: 8.0 cm/sec Med Peak E' Gerhard: 8.5 cm/sec MV A max gerhard: 79.5 cm/sec E/E' lat: 10.5 E/E' med: 9.8 MV E/A: 1.1 MV V2 max: 104.6 cm/sec Ao V2 max: 125.4 cm/sec MV max P.4 mmHg MV dec slope: 353.7 cm/sec2 Ao max P.3 mmHg MV V2 mean: 51.0 cm/sec Ao V2 mean: 81.8 cm/sec MV mean P.3 mmHg Ao mean P.1 mmHg MV V2 VTI: 31.2 cm Ao V2 VTI: 27.5 cm LV V1 max: 96.3 cm/sec PA V2 max: 64.0 cm/sec LV V1 max P.7 mmHg LV V1 mean P.1 mmHg LV V1 mean: 66.9 cm/sec LV V1 VTI: 22.1 cm ECHO/Echo Complete Interpretation Summary Normal LV size. Left ventricular systolic function is normal. The estimated ejection fraction is 60 %. Structurally normal valves. Ordering Physician: Greg Urban Referring Physician: Greg Urban Performed By: Jodi Walker RCS
--- NOTE | 2022-08-30 17:16 | STRESSREP ---
Stress Test Report Pharmacologic myocardial perfusion stress test. 52-year-old lady with a history of chest pain. Stress protocol: Resting EKG demonstrates sinus rhythm with a rate of 70 bpm normal intervals are noted resting blood pressure is 124/70 mmHg. 0.4 mg of regadenoson was infused per usual protocol followed by rapid intravenous saline flush injection continuous EKG monitoring was performed. The maximum heart rate was noted to be 100 bpm which was 59% of max impacted heart rate the maximum workload was 1 metabolic equivalent. At rest there were no ST or T wave changes noted to suggest abnormal flow reserve and at peak infusion nonspecific ST changes were noted with did not meet the criteria for ischemia. No clinical angina was noted. Myocardial perfusion protocol. 15.0 mCi of technetium 99m sestamibi was injected at rest. 0.4 mg of regadenoson was infused per usual protocol. At peak infusion 45.0 mCi of technetium 99m sestamibi was injected stress images were obtained stress and rest images were reconstructed and compared in the short axis vertical long and horizontal long axis. Gated images were also obtained to Perfusion SPECT analysis: Review of the stress images demonstrate normal uptake of tracer noted in all areas of the myocardium. The resting images similar demonstrate normal uptake of tracer noted in all areas of the myocardium. No reversibility is noted suggest ischemia no previous infarct is noted. Gated SPECT analysis: The gated ejection fraction is 58%. Conclusion: Normal pharmacologic myocardial perfusion stress test. Preserved ejection fraction.
== END | disposition home or self-care (01) ==
LOC: CVS 06:06
PROVIDERS: PCP Family Medicine; Referring Provider Internal Medicine Cardiovascular Disease; Visit Provider Internal Medicine Cardiovascular Disease
DX: R07.9 Chest pain, unspecified (principal); I25.10 Atherosclerotic heart disease of native coronary artery without angina pectoris
CPT/HCPCS: 78452; 93017; 93306; A9500; A4216; J2785

== ENCOUNTER → 2024-06-02 | Outpatient (CLI) | payer BC, SELFPAY ==
[2024-06-08 06:09] LABS: Cotinine Screen Blood 7.8 ng/mL (.); Nicotine Blood <1.0 ng/mL (.)
== END | disposition home or self-care (01) ==
PROVIDERS: PCP Family Medicine
DX: Z41.1 Encounter for cosmetic surgery (principal)
CPT/HCPCS: 36415; 80323; G0480

== ENCOUNTER 2025-03-19 18:13 | Emergency (ER) | payer BC, SELFPAY ==
[2025-03-19 18:14] VITALS: BP 139/72; PULSE 100; RESP 22; TEMP 36.8; O2SAT 100; BMI 46.3
[2025-03-19 18:26] VITALS: O2SAT 98
--- NOTE | 2025-03-19 18:28 | ED.VIS.CHEST ---
HPI History of Present Illness Chief Complaint: Chest Pain Narrative Narrative: Patient is a 54-year-old female with past medical history of GERD, tobacco use, type 2 diabetes, hypothyroidism who presents to the emergency department with chief complaint of chest pain. Patient states that her chest pain started a couple hours ago while cleaning. She states that the pain has slowly gotten worse prompting her to call EMS to be brought here for further evaluation management. Patient states that she was given aspirin and nitro en route and states that the nitro did not help her chest pain. States that it is a stabbing pain. And does not radiating where stays on the left side of chest. Patient denies any nausea associate with this denies any back pain. Patient denies recent travel history denies any history of blood clots. States that her pain is worse with deep inspiration. [facility] Medical History Tobacco abuse GERD (gastroesophageal reflux disease) Hyperlipidemia Morbid obesity Type 2 diabetes mellitus Hypothyroidism Home Medications ?Medication ?Instructions ?Recorded ?Last Taken ?Type levothyroxine 75 mcg tablet 75 mg PO DAILY 03/24/19 04/08/19 History metformin 1,000 mg tablet 1,000 mg PO BID 03/24/19 04/08/19 History rosuvastatin 10 mg tablet 10 mg PO DAILY 08/20/22 Unknown History cyclobenzaprine 5 mg tablet 5 mg PO TID PRN muscle spasm #20 03/19/25 Unknown Rx tabs dulaglutide 4.5 mg/0.5 mL 4.5 mg subcut QWEEK 03/19/25 Unknown History subcutaneous pen injector (Trulicity) lidocaine 5 % topical patch 1 patch topical DAILY PRN pain #15 03/19/25 Unknown Rx ea Allergy/AdvReac Type Severity Reaction Status Date / Time adhesive tape Allergy Rash Verified 03/19/25 18:18 cobalt Allergy Anaphylaxis Verified 03/19/25 18:18 Latex, Natural Rubber Allergy Rash Verified 03/19/25 18:18 nickel Allergy Rash Verified 03/19/25 18:18 Surgical History History of cholecystectomy Social History Smoking Status: Current every day smoker tobacco type: cigarettes ROS ROS ED ROS Narrative Constitutional: Denies any fevers, chills, headache Cardiovascular: Complains of left-sided chest pain as noted above denies any palpitations Respiratory: Denies coughing wheezing shortness of breath Abdomen: Denies abdominal pain nausea vomit diarrhea : Denies urinary symptoms Neurological: Denies numbness, weakness, tingling Musculoskeletal: Denies back pain Skin: Denies rashes or lesions EXAM Physical Exam Narrative Exam Narrative: General: Patient lying in bed rest comfortably did not appear to be in acute distress Head: Atraumatic, normocephalic Eyes: PERRL bilaterally, EOMI bilaterally, no conjunctival injection noted Neck: Soft, supple, trachea midline Cardiovascular: Regular rate and rhythm no murmurs gallops rubs noted Respiratory: Clear to auscultation bilaterally Abdomen: Soft, nondistended, nontender to palpation Extremities: Radial pulses +2/4 in the bilateral upper extremities, +5/5 strength noted in the bilateral upper and lower extremities, no pedal edema on exam Neurological: Patient following commands knew that she was at [facility] there is 2024 Skin: Warm, dry, intact no rashes lesions noted Const Vital Signs: 03/19/25 18:14 03/19/25 18:20 03/19/25 18:26 Temperature 98.3 F Temperature Source Oral Pulse Rate 100 Respiratory Rate 22 H Respiratory Effort Normal Blood Pressure 139/72 H Blood Pressure Mean 94 Pulse Ox 100 98 Oxygen Delivery Method Room Air Room Air 03/19/25 19:00 03/19/25 20:00 03/19/25 21:00 Temperature Temperature Source Pulse Rate 94 72 75 Respiratory Rate 18 16 18 Respiratory Effort Blood Pressure 122/64 H 120/61 124/66 H Blood Pressure Mean 83 80 85 Pulse Ox 98 100 100 Oxygen Delivery Method Room Air Room Air Room Air MDM MDM MDM Narrative Medical decision making narrative: patient is a 54-year-old female who presents to the emergency department the chief complaint of left-sided chest pain. On the differential diagnose includes but not limited to ACS, pneumothorax, musculoskeletal strain. Once workup is obtained reviewed she will be reevaluated. As noted earlier patient received nitroglycerin and aspirin in route via EMS and the nitroglycerin did not help her pain. Patient was given morphine Zofran. Patient's CBC reviewed showed no evidence leukocytosis white blood count normal at 10.7, hemoglobin is 11.5, platelet count was 252. Patient's sodium was 135, potassium normal 3.9, creatinine normal at 0.84. Patient's glucose was noted to be 253, troponin was 15 with a delta troponin obtained 8. Patient's EKG reviewed and showed sinus rhythm with a rate of 97 beats per minutes this was compared to previous EKG from April 09, 2019 which was largely unchanged. Patient chest x-ray was reviewed and showed no acute cardiopulmonary processes. Reevaluated the patient she is still having pain with deep inspiration her pain is still constant and she will be given Toradol. D-dimer will be added on. Patient D-dimer was elevated therefore CT angiography chest was added on which showed no acute findings no evidence of pulmonary embolism. HEART Score for Major Cardiac Events from [employer] on 03/19/2025 All calculations should be rechecked by clinician prior to use RESULT SUMMARY: 2 points Low Score (0-3 points) Risk of MACE of 0.9-1.7%. INPUTS: History ?> 0 = Slightly suspicious EKG ?> 0 = Normal Age ?> 1 = 45-64 Risk factors ?> 1 = 1-2 risk factors Initial troponin ?> 0 = <=ormal limit On reevaluation patient she is feeling better she would like to go home at this point in time. I have low suspicion for cardiac etiology at this point in time as nitroglycerin did not help her pain and her pain has been constant and believe that this is likely secondary to her cleaning earlier. She was advised to rotate Tylenol and ibuprofen [id number]. She will be given prescriptions for Lidoderm patch as well as muscle relaxer. She was encouraged to follow with her primary care physician in the outpatient setting and return with worsening symptoms or concerns. She is agreeable to plan as well as for members at bedside all question concerns answered she was discharged home in stable condition. Lab Data Labs: Laboratory Results - last 24 hr 03/19/25 03/19/25 17:50 19:55 WBC 10.7 RBC 3.92 L Hgb 11.5 L Hct 35.0 L MCV 89.3 MCH 29.3 MCHC 32.9 RDW Std Deviation 45.1 H RDW Coeff of Michelle 13.9 Plt Count 252 MPV 10.4 Immature Gran % (Auto) 0.500 Neut % (Auto) 72.4 H Lymph % (Auto) 19.6 [place] % (Auto) 5.1 Eos % (Auto) 1.9 Baso % (Auto) 0.5 Absolute Neuts (auto) 7.8 H Absolute Lymphs (auto) 2.09 Nucleated RBC % 0 D-Dimer Quant (PE/DVT) 2.50 H* Sodium 135 Potassium 3.9 Chloride 98 Carbon Dioxide 21.1 Anion Gap 16 H BUN 12 Creatinine 0.84 Estim Creat Clear Calc 114.42 Est GFR (MDRD) Non-Af 83 BUN/Creatinine Ratio 13.9 Glucose 253 H Calcium 9.3 Troponin T High Sens 15 H Troponin T Hi Sens 2 Hr 8 Radiography Diagnostic Testing: Clinical Impression(s) from Imaging Studies Chest X-Ray 03/19/25 18:40 IMPRESSION: NO ACUTE FINDINGS. Reading Location: [facility] Chest CTA 03/19/25 21:00 IMPRESSION: NORMAL CHEST CTA. NO EVIDENCE OF ACUTE PULMONARY EMBOLISM. Reading Location: [facility] Discharge Plan Triage Chief Complaint: Chest Pain ED Provider: Jose J Claudio Dx/Rx/DC Orders Clinical Impression: Musculoskeletal strain, Chest pain Prescriptions: New lidocaine 5 % adhesive patch,medicated 1 patch topical DAILY PRN (Reason: pain) Qty: 15 0RF Rx Instructions: leave on most painful area for up to 12 hrs cyclobenzaprine 5 mg tablet 5 mg PO TID PRN (Reason: muscle spasm) Qty: 20 0RF No Action rosuvastatin 10 mg tablet 10 mg PO DAILY levothyroxine 75 MCG tablet 75 mg PO DAILY metformin 1,000 MG tablet 1,000 mg PO BID Trulicity 4.5 mg/0.5 mL pen injector 4.5 mg subcut QWEEK Rx Instructions: every friday Primary Care Provider: Stacy Bullard Referrals: Stacy Bullard PA-C [Primary Care Provider] - Activity Restrictions/Additional Instructions: Use prescriptions as prescribed. Return with worsening symptoms or other concerns. Your CT scan of your chest was normal as well as the x-ray of your chest. Follow-up your primary care physician outpatient setting. Print Language: Honduran Disposition Disposition: Home, Self Care
[2025-03-19] MEDS: 0.9% Normal Saline (1000mL) 1,000 ML 999 ML IV (18:33)
[2025-03-19] MEDS: Morphine 4 MG/ML Syringe IV (18:36)
[2025-03-19] MEDS: Ondansetron 4 MG/2 ML Vial IV (18:36)
[2025-03-19 18:37] LABS: Absolute Lymphocyte Count 2.09 X10^3/uL (0.83-4.51); Absolute Neutrophil Count 7.8 X10^3/uL (2.0-7.7); Basophil# 0.05 X10^3/uL; Basophil% 0.5 % (0-1); Eosinophils% 1.9 % (0-5); Hemoglobin 11.5 g/dL (12.0-15.0); Lymphocyte # 2.09 X10^3/ul (0.83-4.51); Lymphocyte % 19.6 % (19-41); Mean Corp Hgb Conc 32.9 g/dL (32-36); Mean Corpuscular Hgb 29.3 pg (27.0-32.0); Mean Corpuscular Volume 89.3 fL (81-99); Mean Platelet Vol. 10.4 fl (6.2-12.0); Monocyte# 0.54 X10^3/uL; Monocyte% 5.1 % (0-10); NRBC Flagged by Analyzer 0 % (0-5); Neutrophil # 7.76 X10^3/uL (2.7-7.7); Neutrophil % 72.4 % (47-70); Platelet Count 252 K/mm3 (150-450); RBC Distribution Width CV 13.9 % (11.6-14.6); RBC Distribution Width SD 45.1 fl (35.1-43.9); Red Blood Count 3.92 M/mm3 (4.2-5.4); White Blood Count 10.7 K/mm3 (4.4-11.0)
--- NOTE | 2025-03-19 18:40 | RAD_ITS ---
PROCEDURE: CHEST PA AND LATERAL 03/19/2025 REASON FOR EXAM: CHEST PAIN TECHNIQUE: Frontal and lateral views of the chest. FINDINGS: Hardware: None Heart: The heart size is normal. Mediastinum: The mediastinal contour is unremarkable. Lungs: The lungs are clear. Bones: The bones are unremarkable. RAD/Chest PA and Lateral IMPRESSION: NO ACUTE FINDINGS. Reading Location: [id number]
[2025-03-19 19:00] VITALS: BP 122/64; PULSE 94; RESP 18; O2SAT 98
[2025-03-19 19:16] LABS: Anion Gap 16 (5-15); BUN 12 mg/dL (4-19); BUN/Creat Ratio 13.9 RATIO (10-20); Calcium,Total 9.3 mg/dL (7.6-11.0); Carbon Dioxide 21.1 mmol/L (21.0-32.0); Chloride 98 mmol/L (98-108); Creatinine, Serum 0.84 mg/dL (0.70-1.20); EST Glomerular Filtration Rate 83 (>60); Estimated Creatinine Clearance 114.42 ml/min (50-250); Glucose 253 mg/dL (70-99); Potassium 3.9 mmol/L (3.3-5.1); Sodium Level 135 mmol/L (133-145); Troponin T High Sensitivity 15 ng/L (<=14)
[2025-03-19 20:00] VITALS: BP 120/61; PULSE 72; RESP 16; O2SAT 100
[2025-03-19 20:20] LABS: Troponin T High Sens 2 HR 8 ng/L (<=14)
[2025-03-19] MEDS: Ketorolac 30 MG/ML Syringe IV (20:42)
[2025-03-19 21:00] VITALS: BP 124/66; PULSE 75; RESP 18; O2SAT 100
--- NOTE | 2025-03-19 21:00 | CT_ITS ---
PROCEDURE: CTA CHEST W/WO CONTRAST 03/19/2025 REASON FOR EXAM: PAIN WITH DEEP INSPIRATION TECHNIQUE: CTA axial imaging of the chest with intravenous contrast. Multiplanar and multisequence images were obtained. 3D, 3D post processing, 3D reconstructions, Maximum intensity projection (MIPs) Volume rendering and Shaded surface rendering was provided. PATIENT PREPARATION: Per protocol One or more dose reduction techniques were used (e.g., Automated exposure control, adjustment of the mA and/or kV according to patient size, use of iterative reconstruction technique). COMPARISON: Chest x-ray earlier today FINDINGS: Hardware: None Lymph nodes: Unremarkable Heart: No cardiomegaly. Thoracic Aorta: No thoracic aortic aneurysm or dissection. Pulmonary Vessels: No large central pulmonary emboli are identified. Contrast timing is suboptimal for evaluation of more distal branches. Most Proximal Level of Embolus (if embolus present): Lungs and Airways: The lungs are normally expanded and clear. Pleura: No pleural effusion. No pneumothorax. Upper Abdomen: Visualized portions of the upper abdominal viscera are unremarkable. Bones: Bone windows are unremarkable. CT/CTA Chest W/WO Contrast IMPRESSION: NORMAL CHEST CTA. NO EVIDENCE OF ACUTE PULMONARY EMBOLISM. Reading Location: [id number]
[2025-03-19 21:50] VITALS: BP 102/66; PULSE 99; RESP 18; TEMP 36.6; O2SAT 99
== END 2025-03-19 22:02 | disposition home or self-care (01) ==
PROVIDERS: Emergency Provider Emergency Medicine; PCP Family Medicine; Visit Provider Emergency Medicine
DX: S29.011A Strain of muscle and tendon of front wall of thorax, initial encounter (principal); E11.9 Type 2 diabetes mellitus without complications; R07.89 Other chest pain; X58.XXXA Exposure to other specified factors, initial encounter; E78.5 Hyperlipidemia, unspecified; K21.9 Gastro-esophageal reflux disease without esophagitis; E03.9 Hypothyroidism, unspecified; F17.210 Nicotine dependence, cigarettes, uncomplicated; Z79.84 Long term (current) use of oral hypoglycemic drugs; Z79.85 Long-term (current) use of injectable non-insulin antidiabetic drugs; Z79.890 Hormone replacement therapy; Z79.899 Other long term (current) drug therapy
CPT/HCPCS: 71046; 71275; 80048; 84484; 85025; 85379; 93005; 96361; 96374; 96375; 99285; Q9967; A4216; J2405

== ENCOUNTER → 2025-04-02 | Outpatient (CLI) | payer BC, SELFPAY ==
[2025-04-02 09:41] LABS: Hemoglobin A1c 8.2 % (<=5.6)
[2025-04-02 09:49] LABS: AST(SGOT) 19 U/L (<=31); Alanine Aminotransfer ALT/SGPT 17 U/L (<=34); Anion Gap 11 (5-15); BUN 11 mg/dL (4-19); Calcium,Total 9.7 mg/dL (7.6-11.0); Carbon Dioxide 25.4 mmol/L (21.0-32.0); Chloride 101 mmol/L (98-108); Cholesterol 130 mg/dL (<=200); Creatinine, Serum 0.76 mg/dL (0.70-1.20); EST Glomerular Filtration Rate 94 (>60); Glucose 131 mg/dL (70-99); High Density Lipoprotein 45 mg/dL; Low Density Lipoprotein Calc. 54 mg/dL; Potassium 4.7 mmol/L (3.3-5.1); Sodium Level 138 mmol/L (133-145); Triglycerides 157 mg/dL; Very Low Density Lipoprotein 31 mg/dL (5-40); cholesterol:hdl ratio screen 2.91
== END | disposition home or self-care (01) ==
PROVIDERS: PCP Family Medicine; Referring Provider Internal Medicine Endocrinology, Diabetes & Metabolism; Visit Provider Internal Medicine Endocrinology, Diabetes & Metabolism
DX: E11.65 Type 2 diabetes mellitus with hyperglycemia (principal); E03.9 Hypothyroidism, unspecified
CPT/HCPCS: 36415; 80048; 80061; 83036; 84439; 84443; 84450; 84460

== ENCOUNTER → 2025-07-29 | Outpatient (CLI) | payer BC, SELFPAY ==
[2025-07-29 11:42] LABS: AST(SGOT) 16 U/L (<=31); Alanine Aminotransfer ALT/SGPT 13 U/L (<=34); Anion Gap 11 (5-15); BUN 10 mg/dL (4-19); BUN/Creat Ratio 13.0 RATIO (10-20); Calcium,Total 9.3 mg/dL (7.6-11.0); Carbon Dioxide 21.9 mmol/L (21.0-32.0); Chloride 104 mmol/L (98-108); Cholesterol 117 mg/dL (<=200); Glucose 107 mg/dL (70-99); Low Density Lipoprotein Calc. 42 mg/dL; Potassium 4.1 mmol/L (3.3-5.1); Triglycerides 165 mg/dL; Very Low Density Lipoprotein 33 mg/dL (5-40); cholesterol:hdl ratio screen 2.76
== END | disposition home or self-care (01) ==
LOC: LAB 10:35
PROVIDERS: PCP Family Medicine; Referring Provider Internal Medicine Endocrinology, Diabetes & Metabolism; Visit Provider Internal Medicine Endocrinology, Diabetes & Metabolism
DX: E11.65 Type 2 diabetes mellitus with hyperglycemia (principal); E03.9 Hypothyroidism, unspecified; E78.2 Mixed hyperlipidemia
CPT/HCPCS: 36415; 80048; 80061; 83036; 84439; 84443; 84450; 84460

== ENCOUNTER → 2025-10-29 | Outpatient (CLI) | payer BC, SELFPAY ==
--- OUTSIDE RECORDS SUMMARY | 2025-10-29 07:35 | XMS RPT_ITS | CCD ---
Author Organization [facility] Care Team Providers Care Contract Preparer Name Role Phone PETER Rodgers Primary Care Provider PETER Rodgers Referring Provider [phone] Dr. Greg Urban Attending Provider [phone] BIANKA HOFFMAN Admitting Unavailable BIANKA HOFFMAN PA Primary Care Unavailable BIANKA HOFFMAN Attending Unavailable MANAS BULLARD Consulting Unavailable PROVIDER, UNKNOWN Consulting Unavailable BIANKA HOFFMAN Admitting Unavailable BIANKA HOFFMAN Primary Care Unavailable BIANKA HOFFMAN Attending Unavailable MANAS BULLARD Consulting Unavailable PROVIDER, UNKNOWN Consulting Unavailable Manas Bullard PA-C Primary Care Provider Dr. Jose J Claudio DO Emergency Provider Dr. Jose J Claudio DO Attending Provider [phone] Madalyn [employer] Attending Provider Madalyn [employer] Referring Provider MADALYN APRN_CNPVESNA Attending Unavailabl e PHYSICIAN, NOT RECORDED Primary Care Unavaila ble MADALYN APRN_CNPVESNA Attending Unavailabl e PHYSICIAN, NOT RECORDED Primary Care Unavaila ble Vesna Bergman Attending Unavailable Vesna Bergman Referring Unavailable Aleah PAManas Primary Care Unavailable Vesna Bergman Attending Unavailable Vesna Bergman Referring Unavailable Aleah PA Manas Primary Care Unavailable Jose J Claudio Attending Unavailable Manas Rodgers Primary Care Unavailable Aleah TODDCManas Primary Care Physician Madalyn [employer], Vesna A Attending Physician Vesna Pires Referring Provider PHYSICIAN, NOT RECORDED Primary Care Physician VIKTOR Mathews DPM Attending Unavailable PHYSICIAN, NOT RECORDED Primary Care Unavaila ble Allergies Allergy Classification Reported Allergen(s) Allergy Type Date of Onset Reaction(s) Facility (7 sources) Adhesive Tape; Translations: [adhesive tape] Allergy to substance 04-02-2019 Rash [facility] (6 sources) [facility] Allergy 04-02-2019 Anaphylaxis [facility] (7 sources) natural latex rubber; Translations: [Latex, Natural Rubber] Allergy to substance 04-02-2019 Rash [facility] (6 sources) nickel Drug Allergy 04-02-2019 Rash [facility] (1 source) [place] Allergy 03-19-2025 [facility] Repository (1 source) nickel Drug Allergy 03-19-2025 [facility] Repository Medications Current Medications Medication Drug Class(es) Dates Sig (Normalized) Sig (Original) cyclobenzaprine hydrochloride 5 mg oral tablet (3 sources) Muscle Relaxant Start: 03-19-2025 take 1 tablet by mouth three times daily as needed for muscle spasms Dulaglutide (7 sources) GLP-1 Receptor Agonist Start: 03-19-2025 Start: 03-19-2025 Dulaglutide (T rulicity) 4.5 mg/0.5 mL pen injector Active 4.5 mg SC EVERY WEEK March 19, 2025 12:00am every friday Start: 08-20-2022 End: 03-19-2025 Dulaglutide (Trulicity) 3 mg /0.5 mL pen injector Discontinued 3 mg SC EVERY WEEK August 20, 2022 12:00am March 19, 2025 7:34pm Start: 08-20-2022 Dulaglutide (T rulicity) 3 mg/0.5 mL pen injector Active 3 MG SC EVERY WEEK August 19, 2022 11:00pm levothyroxine sodium 0.075 m g oral tablet (6 sources) l-Thyroxine Start: 03-24-2019 Start: 03-24-2019 take 75 mg by mouth once daily Levothyroxine Active 75 MG PO DAILY March 23, 2019 11:00pm lidocaine 0.05 mg/mg medicated patch (3 sources) Antiarrhythmic, Amide Local Anesthetic Start: 03-19-2025 metFORMIN hydrochloride 1000 mg oral tablet (6 sources) Biguanide Start: 03-24-2019 take 1 tablet by mouth twice daily Multivitamin preparation (1 source) Start: 08-21-2022 take 1 tablet by mouth once daily Multivitamin Active 1 TABLET PO DAILY August 20, 2022 11:00pm rosuvastatin calcium 10 mg oral tablet (4 sources) HMG-CoA Reductase Inhibitor Start: 08-20-2022 take 1 tablet by mouth once daily Completed/Discontinued Medications Medication Drug Class(es) Dates Sig (Normalized) Sig (Original) acetaminophen 325 mg / HYDROcodone bitartrate 5 mg oral tablet (18 sources) Opioid Agonist Start: 04-09-2019 End: 04-14-2019 Hydrocodone-Acetamino phen 1 EACH tablet Discontinued 1 NMA PO EVERY 8 HOURS as needed for Mod-Severe Pain (4-09/02) 15 5 0 April 09, 2019 8:44am April 13, 2019 12:00am April 14, 2019 12:06am Other acute postprocedural pain Start: 04-09-2019 End: 04-14-2019 Hydrocodone-Acetaminophen Di scontinued 1 EACH PO EVERY 8 HOURS 15 5 April 09, 2019 7:44am April 13, 2019 11:06pm Start: 04-02-2019 End: 08-20-2022 Hydrocodone-Acetaminophen 1 EACH tablet Discontinued 1 {tbl} PO EVERY 6 HOURS NEEDED as needed for Pain April 02, 2019 12:00am August 20, 2022 9:54pm Start: 04-02-2019 End: 08-20-2022 take 1 tablet by mouth every six hours as needed Hydrocodone-Acetaminophen Discontinued 1 TABLET PO EVERY 6 HOURS NEEDED April 01, 2019 11:00pm August 20, 2022 8:54pm Start: 03-24-2019 End: 03-27-2019 Hydrocodone-Acetaminophen 1 TABLET tablet Discontinued 1 {tbl} PO EVERY 6 HOURS NEEDED as needed for Pain 12 3 0 March 24, 2019 12:00am March 26, 2019 12:00am March 27, 2019 12:09am Biliary colic Calculus of bile duct without cholangitis or cholecystitis without obstruction Start: 03-24-2019 End: 03-27-2019 take 1 tablet by mouth every six hours as needed Hydrocodone-Acetaminophen Discontinued 1 TABLET PO EVERY 6 HOURS NEEDED 12 March 23, 2019 11:00pm March 26, 2019 11:09pm calcium ascorbate 500 mg oral tablet (4 sources) Start: 08-21-2022 End: 03-19-2025 take 1 tablet by mouth once daily Ascorbate Calcium (Vitamin C) 500 mg tablet Discontinued 500 mg PO DAILY August 21, 2022 12:00am March 19, 2025 7:33pm metaxalone 800 mg oral tablet (9 sources) Start: 08-14-2022 End: 03-19-2025 take 1 tablet by mouth three times daily Metaxalone 800 mg tablet Discontinued 800 mg PO THREE TIMES A DAY August 21, 2022 11:31am March 19, 2025 7:34pm Multivitamin tablet (3 sources) Start: 08-21-2022 End: 03-19-2025 Multivitamin tablet Discontinued 1 {tbl} PO DAILY August 21, 2022 12:00am March 19, 2025 7:33pm ondansetron 4 mg disintegrating oral tablet (6 sources) Serotonin-3 Receptor Antagonist Start: 03-24-2019 End: 08-20-2022 take 1 tablet by mouth every six hours as needed for nausea Ondansetron 4 MG tablet Discontinued 4 mg PO EVERY 6 HOURS NEEDED as needed for Nausea March 24, 2019 11:25pm August 20, 2022 9:55pm Problems Problem Classification Problem Date Documented Date Episodic/Chronic Diabetes mellitus with complications (2 sources) Type 2 diabetes mellitus with hyperglycemia; Translations: [Type 2 diabetes mellitus with hyperglycemia] Onset: 02-11-2025 Chronic Diabetes mellitus without complication (4 sources) Type 2 diabetes mellitus; Translations: [Type 2 diabetes mellitus without complications] 08-20-2022 Chronic Disorders of lipid metabolism (4 sources) Hyperlipidemia; Translations: [Hyperlipidemia, unspecified] 08-20-2022 Chronic Nonspecific chest pain (10 sources) Chest pain; Translations: [Chest pain, unspecified] Onset: 02-11-2025 Episodic Other connective tissue disease (5 sources) Spasm; Translations: [Other muscle spasm] 08-22-2022 Episodic Other injuries and conditions due to external causes (3 sources) Injury of musculoskeletal system; Translations: [Other injury of unspecified body region, initial encounter] 03-19-2025 Episodic Other nervous system disorders (1 source) Paresthesia of skin; Translations: [Paresthesia of skin] Onset: 02-11-2025 Episodic Other nutritional; endocrine; and metabolic disorders (4 sources) Morbid obesity; Translations: [Morbid (severe) obesity due to excess calories] 08-20-2022 Chronic Other nutritional; endocrine; and metabolic disorders (1 source) Body mass index (BMI) 40.0-44.9, adult; Translations: [Body mass index [BMI]40.0-44.9, adult] Onset: 02-11-2025 Chronic Residual codes; unclassified (4 sources) Tobacco user; Translations: [Tobacco use] 08-20-2022 Episodic Spondylosis; intervertebral disc disorders; other back problems (5 sources) Backache; Translations: [Dorsalgia, unspecified] 08-22-2022 Episodic Substance-related disorders (1 source) Nicotine dependence, unspecified, uncomplicated; Translations: [Nicotine dependence, unspecified, uncomplicated] Onset: 02-11-2025 Chronic Unclassified (1 source) Obesity, class 3; Translations: [Obesity, class 3] Onset: 02-11-2025 Results Test Name Value Interpretation Reference Range Facility MRI FOOT W/O CONTRAST LEFTon 09-19-2025 MRI FOOT W/O CONTRAST LEFT ORIGINAL EXAMINATION: MRI OF THE LEFT FOOT WITHOUT CONTRAST, 09/19/2025 8:30 am TECHNIQUE: Multiplanar multisequence MRI of the left foot was performed without the administration of intravenous contrast. 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 The hallux sesamoids appear intact. There is no proximal migration of the sesamoids. There is no joint effusion or synovitis. Moderate 1st MTP degenerative change with chondral thinning, subchondral cyst in the 1st metatarsal head. Intraosseous ganglion versus subchondral cysts within the navicular. Type 1 accessory navicularis. The plantar plates of the metatarsophalangeal joints appear intact. Trivial 1st and 3rd intermetatarsal bursitis. There is no Garnica's neuroma. The intrinsic musculature of the foot appears intact. Selective fatty atrophy of the abductor digiti minimi muscle belly. Mild thickening of the plantar fascia involving the proximal portions of the central cord partially visualized. Lisfranc's ligament appears intact. The flexor tendons appear intact. The extensor tendons appear intact. There is no soft tissue edema. There is no evidence of a solid or cystic soft tissue mass. IMPRESSION: 1. Thickening of the plantar fascia involving the proximal portions of the central cord partially visualized, findings may be seen in the setting of plantar fasciitis. 2. 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 3. Moderate 1st MTP degenerative change. 4. Trivial 1st intermetatarsal bursitis. Interpreted by: Gisella Felix Preliminary Report By: Gisella Felix Electronically signed By Gisella Felix Dictated Date: 09/19/2025 9:58:58 AM Prelim Date: 09/19/2025 10:11:14 AM Sign Date: 09/19/2025 10:11:14 AM Ordering Provider: VIKTOR SILVA Normal [facility] AST(SGOT)on 07-29-2025 AST [Catalytic activity/Vol] 16 U/L Normal <=31 [facility] Comment on above: Performed By: #### L 500.2500, L506.0400, L501.9985, L501.4405, L500.4100, L501.4100, L501.9520 #### [facility] [address] [place], [address] Alanine Aminotransferas (SGP T)on 07-29-2025 ALT [Catalytic activity/Vol] 13 U/L Normal <=34 [facility] Comment on above: Performed By: #### L 499.0042 #### [facility] [address] [place], [address] Anion gap in Serum or Plasma Ordered By: Vesna Bergman on 07-29-2025 Anion gap [Moles/Vol] 11 mmol/L 5-15 [facility] BUN/creatinine ratioOrdered By: Vesna Bergman on 07-29-2025 Urea nitrogen/Creatinine [Mass ratio] 13.0 mg/mg 10- [facility] Basic Metabolic Profile (BMP )on 07-29-2025 BUN/CRE 13.0 RATIO Normal - [facility] Comment on above: Performed By: #### L 500.2500, L506.0400, L501.9985, L501.4405, L500.4100, L501.4100, L501.9520 #### [facility] [address] [place], [address] Calcium [Mass/Vol] 9.3 mg/dL Normal 7.6-11.0 [facility] Comment on above: Performed By: #### L 500.2500, L506.0400, L501.9985, L501.4405, L500.4100, L501.4100, L501.9520 #### [facility] [address] [place], [address] Chloride [Moles/Vol] 104 mmol/L Normal 98-108 [facility] Comment on above: Performed By: #### L 500.2500, L506.0400, L501.9985, L501.4405, L500.4100, L501.4100, L501.9520 #### [facility] [address] [place], [address] CO2 [Moles/Vol] 21.9 mmol/L Normal 21.0-32.0 [facility] Comment on above: Performed By: #### L 500.2500, L506.0400, L501.9985, L501.4405, L500.4100, L501.4100, L501.9520 #### [facility] [address] [place], [address] Creatinine [Mass/Vol] 0.79 mg/dL Normal 0.70-1.20 [facility] Comment on above: Performed By: #### L 500.2500, L506.0400, L501.9985, L501.4405, L500.4100, L501.4100, L501.9520 #### [facility] [address] [place], [address] GAP 11 Normal 5-15 [facility] Comment on above: Performed By: #### L 500.2500, L506.0400, L501.9985, L501.4405, L500.4100, L501.4100, L501.9520 #### [facility] [address] [place], [address] GFR/1.73 sq M.predicted among non-blacks MDRD (S/P/Bld) [Vol rate/Area] 89 mL/min/{1.73_m2} Normal >60 [facility] Comment on above: Result Comment: mL/m in/1.73m2 CKD-EPI Creatinine Equation (2020) Performed By: #### L 500.2500, L506.0400, L501.9985, L501.4405, L500.4100, L501.4100, L501.9520 #### [facility] [address] [place], [address] Glucose [Mass/Vol] 107 mg/dL High 70-99 [facility] Comment on above: Performed By: #### L 500.2500, L506.0400, L501.9985, L501.4405, L500.4100, L501.4100, L501.9520 #### [facility] [address] [place], [address] Potassium [Moles/Vol] 4.1 mmol/L Normal 3.3-5.1 [facility] Comment on above: Performed By: #### L 500.2500, L506.0400, L501.9985, L501.4405, L500.4100, L501.4100, L501.9520 #### [facility] [address] [place], [address] Sodium [Moles/Vol] 137 mmol/L Normal 133-145 [facility] Comment on above: Performed By: #### L 500.2500, L506.0400, L501.9985, L501.4405, L500.4100, L501.4100, L501.9520 #### [facility] [address] [place], [place], [id number] Urea nitrogen [Mass/Vol] 10 mg/dL Normal 4-19 [facility] Comment on above: Performed By: #### L 500.2500, L506.0400, L501.9985, L501.4405, L500.4100, L501.4100, L501.9520 #### [facility] [address] [place], [place], [id number] Calculated very low density lipoprotein (VLDL) cholesterol measurementOrdered By: Vesna Bergman on 07-29-2025 Calculated very low density lipoprotein (VLDL) cholesterol measurement 33 mg/dL 5-40 [facility] Carbon dioxide, total [Moles /volume] in Central venous bloodOrdered By: Vesna Bergman on 07-29-2025 CO2 [Moles/Vol] 21.9 mmol/L 21.0-32.0 [facility] Chloride assayOrdered By: Rachel Bergman on 07-29-2025 Chloride [Moles/Vol] 104 mmol/L 98-108 [facility] Glomerular filtration rate ( GFR) estimation/1.73 sq m using serum, plasma, or whole bOrdered By: Vesna Bergman on 07-29-2025 GFR/1.73 sq M.predicted among non-blacks MDRD (S/P/Bld) [Vol rate/Area] 89 mL/min/{1.73_m2} >60 [facility] Comment on above: mL/min/1.73m2 CKD-EP I Creatinine Equation (2020) Hemoglobin A1con 07-29-2025 HbA1c (Bld) [Mass fraction] 7.3 % High <=5.6 [facility] Comment on above: Result Comment: Norm al < 5.7 % Prediabetic 5.7 - 6.4 % Diabetic >or= 6.5 % Please note range changes. Performed By: #### L 500.2500, L506.0400, L501.9985, L501.4405, L500.4100, L501.4100, L501.9520 #### [facility] [address] [place], [place], [id number] Hemoglobin A1c percentageOrd ered By: Vesna Bergman on 07-29-2025 HbA1c (Bld) [Mass fraction] 7.3 % High <5.7 [facility] Comment on above: Normal < 5.7 % Predi abetic 5.7 - 6.4 % Diabetic >or= 6.5 % Please note range changes. LDL calc ser/plasOrdered By: Vesna Bergman on 07-29-2025 Cholesterol in LDL [Mass/Vol] 42 mg/dL [facility] Comment on above: Jejsyjxkmv=056-002 m g/dL & Higher Ybhk=773 mg/dL or greaterFriedwald Equation for LDL-C Laboratory - Chemistry and C hemistry - challengeOrdered By: Vesna Bergman on 07-29-2025 AST [Catalytic activity/Vol] 16 U/L <32 [facility] Lipid Profileon 07-29-2025 CHOL:HDL 2.76 Normal [facility] Comment on above: Performed By: #### L 500.2500, L506.0400, L501.9985, L501.4405, L500.4100, L501.4100, L501.9520 #### [facility] [address] [place], [place], [id number] Cholesterol [Mass/Vol] 117 mg/dL Normal <=200 [facility] Comment on above: Result Comment: Chol esterol level, Desirable <200 mg/dL Borderline high cholesterol 200-239 mg/dL High cholesterol >=240 mg/dL Recommendations of the NCEP Adult Treatment Panel for the following risk-cutoff thresholds for the [place] population. Performed By: #### L 500.2500, L506.0400, L501.9985, L501.4405, L500.4100, L501.4100, L501.9520 #### [facility] [address] [place], [address] Cholesterol in HDL [Mass/Vol] 42 mg/dL Normal [facility] Comment on above: Result Comment: Nancy onal Cholesterol Education Program (NCEP) guidelines: <40 mg/dL: Low HDL-cholesterol (major risk factor for CHD) >= 60 mg/dL: High HDL-cholesterol (negative risk factor for CHD) HDL-cholesterol is affected by a number of factors, e.g. smoking, exercise, hormones, sex and age. Performed By: #### L 500.2500, L506.0400, L501.9985, L501.4405, L500.4100, L501.4100, L501.9520 #### [facility] [address] [place], [address] Cholesterol in LDL [Mass/Vol] 42 mg/dL Normal [facility] Comment on above: Result Comment: Bord ppqwrq=335-681 mg/dL Higher Pagd=073 mg/dL or greater Friedwald Equation for LDL-C Performed By: #### L 500.2500, L506.0400, L501.9985, L501.4405, L500.4100, L501.4100, L501.9520 #### [facility] [address] [place], [address] Cholesterol in VLDL [Mass/Vol] 33 mg/dL Normal 5-40 [facility] Comment on above: Performed By: #### L 500.2500, L506.0400, L501.9985, L501.4405, L500.4100, L501.4100, L501.9520 #### [facility] [address] [place], [address] Triglyceride [Mass/Vol] 165 mg/dL Normal [facility] Comment on above: Result Comment: The drugs N-Acetylcysteine and Metamizole may falsely depress this assay. Normal range: <150 mg/dL Borderline High: 150-199 mg/dL High: 200-499 mg/dL Very High: >500 mg/dL Performed By: #### L 500.2500, L506.0400, L501.9985, L501.4405, L500.4100, L501.4100, L501.9520 #### [facility] [address] [place], [address] Potassium measurement (mass/ volume)Ordered By: Vesna Bergman on 07-29-2025 Potassium (Unsp spec) [Mass/Vol] 4.1 mmol/L 3.3-5.1 [facility] Screening total cholesterol/ high density lipoprotein (HDL) cholesterol ratioOrdered By: Vesna Bergman on 07-29-2025 Cholesterol.total/Fabi sterol in HDL [Mass ratio] 2.76 {ratio} [facility] Serum creatinine measurement (mass/volume)Ordered By: Vesna Bergman on 07-29-2025 Creatinine [Mass/Vol] 0.79 mg/dL 0.70-1.20 [facility] Serum glucose measurement (m ass/volume)Ordered By: Vesna Bergman on 07-29-2025 Glucose [Mass/Vol] 107 mg/dL High 70-99 [facility] Serum or plasma alanine rai otransferase (ALT) measurementOrdered By: Vesna Bergman on 07-29-2025 ALT [Catalytic activity/Vol] 13 U/L <35 [facility] Serum or plasma calcium raymundo urement (mass/volume)Ordered By: Vesna Bergman on 07-29-2025 Calcium [Mass/Vol] 9.3 mg/dL 7.6-11.0 [facility] Serum or plasma cholesterol in HDL measurement (mass/volume)Ordered By: Vesna Bergman on 07-29-2025 Cholesterol in HDL [Mass/Vol] 42 mg/dL >40 [facility] Comment on above: National Cholesterol Education Program (NCEP) guidelines:<40 mg/dL: Low HDL-cholesterol (major risk factor for CHD)>= 60 mg/dL: High HDL-cholesterol (negative risk factor for CHD)HDL-cholesterol is affected by a number of factors, e.g. smoking, exercise, hormones, sex and age. Serum or plasma cholesterol measurement (mass/volume)Ordered By: Vesna Bergman on 07-29-2025 Cholesterol [Mass/Vol] 117 mg/dL <201 [facility] Comment on above: Cholesterol level, D esirable <200 mg/dLBorderline high cholesterol 200-239 mg/dLHigh cholesterol >=240 mg/dLRecommendations of the NCEP Adult Treatment Panel for the following risk-cutoff thresholds for the [place] population. Serum or plasma urea nitroge n measurement (mass/volume)Ordered By: Vesna Bergman on 07-29-2025 Urea nitrogen [Mass/Vol] 10 mg/dL 4-19 [facility] Sodium levelOrdered By: Michelle Bergman on 07-29-2025 Sodium [Moles/Vol] 137 mmol/L 133-145 [facility] T4 Free Directon 07-29-2025 T4 FREE DIRECT 1.00 ng/dL Normal 0.76-1.46 [facility] Comment on above: Performed By: #### L 499.0042 #### [facility] [address] [place], [address] T4 freeOrdered By: Vesna Rodriguez on 07-29-2025 Free T4 [Mass/Vol] 1.00 ng/dL 0.76-1.46 [facility] TSH DL <= 0.005 mIU/L QnOrde red By: Vesna Bergman on 07-29-2025 TSH Qn 3.130 uIU/mL 0.300-4.200 [facility] Thyroid Stim Hormone (TSH)on 07-29-2025 TSH 3.130 uIU/mL Normal 0.300-4.200 [facility] Comment on above: Performed By: #### L 499.0042 #### [facility] [address] [place], [address] Triglycerides measurementOrd ered By: Vesna Bergman on 07-29-2025 Triglyceride [Mass/Vol] 165 mg/dL <199 [facility] Comment on above: The drugs N-Acetylcy steine and Metamizole may falsely depress this assay. Normal range: <150 mg/dLBorderline High: 150-199 mg/dLHigh: 200-499 mg/dLVery High: >500 mg/dL MALBRon 04-06-2025 U Creatinine 42.4 mg/dL Normal [facility] Comment on above: Performed By: #### M ALBR #### [facility] [address] [place] [address] U Microalb <3.0 Normal [facility] Comment on above: Performed By: #### M ALBR #### [facility] [address] [place] [address] U Ratio Alb/Cre Unable to Calculate Normal 0.0-30.0 [facility] Comment on above: Result Comment: Unab le to calculate this test result accurately. Results used to calculate this test are outside the reportable range. Performed By: #### M ALBR #### [facility] [address] [place] [id number] AST(SGOT)on 04-02-2025 AST [Catalytic activity/Vol] 19 U/L Normal <=31 [facility] Comment on above: Performed By: #### L 499.0042 #### [facility] [address] [place], [place], [id number] Alanine Aminotransferas (SGP T)on 04-02-2025 ALT [Catalytic activity/Vol] 17 U/L Normal <=34 [facility] Comment on above: Performed By: #### L 499.0042 #### [facility] [address] [place], [place], [id number] Anion gap in Serum or Plasma Ordered By: Vesna Bergman on 04-02-2025 Anion gap [Moles/Vol] 11 mmol/L 04-07 [facility] BUN/creatinine ratioOrdered By: Vesna Bergman on 04-02-2025 Urea nitrogen/Creatinine [Mass ratio] 15.0 mg/mg 09-12 [facility] Basic Metabolic Profile (BMP )on 04-02-2025 BUN/CRE 15.0 RATIO Normal 09-12 [facility] Comment on above: Performed By: #### L 499.0042 #### [facility] [address] [place], [address] Calcium [Mass/Vol] 9.7 mg/dL Normal 7.6-11.0 [facility] Comment on above: Performed By: #### L 499.0042 #### [facility] [address] [place], [address] Chloride [Moles/Vol] 101 mmol/L Normal 98-108 [facility] Comment on above: Performed By: #### L 499.0042 #### [facility] [address] [place], [address] CO2 [Moles/Vol] 25.4 mmol/L Normal 21.0-32.0 [facility] Comment on above: Performed By: #### L 499.0042 #### [facility] [address] [place], [address] Creatinine [Mass/Vol] 0.76 mg/dL Normal 0.70-1.20 [facility] Comment on above: Performed By: #### L 499.0042 #### [facility] [address] [place], [address] GAP 11 Normal 5-15 [facility] Comment on above: Performed By: #### L 499.0042 #### [facility] [address] [place], [address] GFR/1.73 sq M.predicted among non-blacks MDRD (S/P/Bld) [Vol rate/Area] 94 mL/min/{1.73_m2} Normal >60 [facility] Comment on above: Result Comment: mL/m in/1.73m2 CKD-EPI Creatinine Equation (2020) Performed By: #### L 499.0042 #### [facility] [address] [place], [address] Glucose [Mass/Vol] 131 mg/dL High 70-99 [facility] Comment on above: Performed By: #### L 499.0042 #### [facility] [address] [place], [place], [id number] Potassium [Moles/Vol] 4.7 mmol/L Normal 3.3-5.1 [facility] Comment on above: Performed By: #### L 499.0042 #### [facility] [address] [place], [place], [id number] Sodium [Moles/Vol] 138 mmol/L Normal 133-145 [facility] Comment on above: Performed By: #### L 499.0042 #### [facility] [address] [place], [place], [id number] Urea nitrogen [Mass/Vol] 11 mg/dL Normal 4-19 [facility] Comment on above: Performed By: #### L 499.0042 #### [facility] [address] [place], [place], [id number] Calculated very low density lipoprotein (VLDL) cholesterol measurementOrdered By: Vesna Bergman on 04-02-2025 Calculated very low density lipoprotein (VLDL) cholesterol measurement 31 mg/dL 5-40 [facility] Carbon dioxide, total [Moles /volume] in Central venous bloodOrdered By: Vesna Bergman on 04-02-2025 CO2 [Moles/Vol] 25.4 mmol/L 21.0-32.0 [facility] Chloride assayOrdered By: Rachel Bergman on 04-02-2025 Chloride [Moles/Vol] 101 mmol/L 98-108 [facility] Glomerular filtration rate ( GFR) estimation/1.73 sq m using serum, plasma, or whole bOrdered By: Vesna Bergman on 04-02-2025 GFR/1.73 sq M.predicted among non-blacks MDRD (S/P/Bld) [Vol rate/Area] 94 mL/min/{1.73_m2} >60 [facility] Comment on above: mL/min/1.73m2 CKD-EP I Creatinine Equation (2020) Hemoglobin A1con 04-02-2025 HbA1c (Bld) [Mass fraction] 8.2 % High <=5.6 [facility] Comment on above: Result Comment: Norm al < 5.7 % Prediabetic 5.7 - 6.4 % Diabetic >or= 6.5 % Please note range changes. Performed By: #### L 499.0042 #### [facility] [address] [place], [address] Hemoglobin A1c percentageOrd ered By: Vesna Bergman on 04-02-2025 HbA1c (Bld) [Mass fraction] 8.2 % High <5.7 [facility] Comment on above: Normal < 5.7 % Predi abetic 5.7 - 6.4 % Diabetic >or= 6.5 % Please note range changes. LDL calc ser/plasOrdered By: Vesna Bergman on 04-02-2025 Cholesterol in LDL [Mass/Vol] 54 mg/dL [facility] Comment on above: Dvyqyxljbe=039-063 m g/dL & Higher Szvz=311 mg/dL or greater Laboratory - Chemistry and C hemistry - challengeOrdered By: Vesna Bergman on 04-02-2025 AST [Catalytic activity/Vol] 19 U/L <32 [facility] Lipid Profileon 04-02-2025 CHOL:HDL 2.91 Normal [facility] Comment on above: Performed By: #### L 499.0042 #### [facility] [address] [place], [address] Cholesterol [Mass/Vol] 130 mg/dL Normal <=200 [facility] Comment on above: Result Comment: Chol esterol level, Desirable <200 mg/dL Borderline high cholesterol 200-239 mg/dL High cholesterol >=240 mg/dL Recommendations of the NCEP Adult Treatment Panel for the following risk-cutoff thresholds for the [place] population. Performed By: #### L 499.0042 #### [facility] [address] [place], [place], [id number] Cholesterol in HDL [Mass/Vol] 45 mg/dL Normal [facility] Comment on above: Result Comment: Nancy onal Cholesterol Education Program (NCEP) guidelines: <40 mg/dL: Low HDL-cholesterol (major risk factor for CHD) >= 60 mg/dL: High HDL-cholesterol (negative risk factor for CHD) HDL-cholesterol is affected by a number of factors, e.g. smoking, exercise, hormones, sex and age. Performed By: #### L 499.0042 #### [facility] [address] [place], [address] Cholesterol in LDL [Mass/Vol] 54 mg/dL Normal [facility] Comment on above: Result Comment: Bord uhwerf=999-703 mg/dL Higher Rmnn=661 mg/dL or greater Performed By: #### L 499.0042 #### [facility] [address] [place], [address] Cholesterol in VLDL [Mass/Vol] 31 mg/dL Normal 5-40 [facility] Comment on above: Performed By: #### L 499.0042 #### [facility] [address] [facility] [address] Triglyceride [Mass/Vol] 157 mg/dL Normal [facility] Comment on above: Result Comment: The drugs N-Acetylcysteine and Metamizole may falsely depress this assay. Normal range: <150 mg/dL Borderline High: 150-199 mg/dL High: 200-499 mg/dL Very High: >500 mg/dL Performed By: #### L 499.0042 #### [facility] [address] [place], [address] Microalb:Creat Ratio,Random URon 04-02-2025 MALB:CREAT Normal [facility] Comment on above: Result Comment: UTO Performed By: #### L 499.0042 #### [facility] [address] [place], [address] MICROALBUMIN,UR Normal NO RANGE EST. [facility] Comment on above: Result Comment: UTO Performed By: #### L 499.0042 #### [facility] [address] [place], [address] UR CREAT Normal 28.00-217.00 [facility] Comment on above: Result Comment: UTO Performed By: #### L 499.0042 #### [facility] [address] [place], [address] Potassium measurement (mass/ volume)Ordered By: Vesna Bergman on 04-02-2025 Potassium (Unsp spec) [Mass/Vol] 4.7 mmol/L 3.3-5.1 [facility] Screening total cholesterol/ high density lipoprotein (HDL) cholesterol ratioOrdered By: Vesna Bergman on 04-02-2025 Cholesterol.total/Fabi sterol in HDL [Mass ratio] 2.91 {ratio} [facility] Serum creatinine measurement (mass/volume)Ordered By: Vesna Bergman on 04-02-2025 Creatinine [Mass/Vol] 0.76 mg/dL 0.70-1.20 [facility] Serum glucose measurement (m ass/volume)Ordered By: Vesna Bergman on 04-02-2025 Glucose [Mass/Vol] 131 mg/dL High 70-99 [facility] Serum or plasma alanine rai otransferase (ALT) measurementOrdered By: Vesna Bergman on 04-02-2025 ALT [Catalytic activity/Vol] 17 U/L <35 [facility] Serum or plasma calcium raymundo urement (mass/volume)Ordered By: Vesna Bergman on 04-02-2025 Calcium [Mass/Vol] 9.7 mg/dL 7.6-11.0 [facility] Serum or plasma cholesterol in HDL measurement (mass/volume)Ordered By: Vesna Bergman on 04-02-2025 Cholesterol in HDL [Mass/Vol] 45 mg/dL >40 [facility] Comment on above: National Cholesterol Education Program (NCEP) guidelines:<40 mg/dL: Low HDL-cholesterol (major risk factor for CHD)>= 60 mg/dL: High HDL-cholesterol (negative risk factor for CHD)HDL-cholesterol is affected by a number of factors, e.g. smoking, exercise, hormones, sex and age. Serum or plasma cholesterol measurement (mass/volume)Ordered By: Vesna Bergman on 04-02-2025 Cholesterol [Mass/Vol] 130 mg/dL <201 [facility] Comment on above: Cholesterol level, D esirable <200 mg/dLBorderline high cholesterol 200-239 mg/dLHigh cholesterol >=240 mg/dLRecommendations of the NCEP Adult Treatment Panel for the following risk-cutoff thresholds for the [place] population. Serum or plasma urea nitroge n measurement (mass/volume)Ordered By: Vesna Bergman on 04-02-2025 Urea nitrogen [Mass/Vol] 11 mg/dL 4-19 [facility] Sodium levelOrdered By: Michelle Bergman on 04-02-2025 Sodium [Moles/Vol] 138 mmol/L 133-145 [facility] T4 Free Directon 04-02-2025 T4 FREE DIRECT 1.10 ng/dL Normal 0.76-1.46 [facility] Comment on above: Performed By: #### L 500.2500, L501.4021, L100.0100 #### [facility] [address] [place], [address] T4 freeOrdered By: Vesna francois on 04-02-2025 Free T4 [Mass/Vol] 1.10 ng/dL 0.76-1.46 [facility] TSH DL <= 0.005 mIU/L QnOrde red By: Vesna Bergman on 04-02-2025 TSH Qn 2.530 uIU/mL 0.300-4.200 [facility] Thyroid Stim Hormone (TSH)on 04-02-2025 TSH 2.530 uIU/mL Normal 0.300-4.200 [facility] Comment on above: Performed By: #### L 499.0042 #### [facility] [address] [place], [address] Triglycerides measurementOrd ered By: Vesna Bergman on 04-02-2025 Triglyceride [Mass/Vol] 157 mg/dL <199 [facility] Comment on above: The drugs N-Acetylcy steine and Metamizole may falsely depress this assay. Normal range: <150 mg/dLBorderline High: 150-199 mg/dLHigh: 200-499 mg/dLVery High: >500 mg/dL Absolute lymphocyte countOrd ered By: Jose J Claudio on 03-19-2025 Lymphocytes Auto (Unsp spec) [#/Vol] 2.09 10*3/uL 0.83-4.51 [facility] Absolute neutrophil countOrd ered By: Jose J Claudio on 03-19-2025 Neutrophils (Bld) [#/Vol] 7.8 10*3/uL High 2.0-7.7 [facility] Anion gap in Serum or Plasma Ordered By: Jose J Claudio on 03-19-2025 Anion gap [Moles/Vol] 16 mmol/L High 5-15 [facility] Automated lymphocyte count a s percentage of total leukocytesOrdered By: Jose J Claudio on 03-19-2025 Lymphocytes/100 WBC Auto (Unsp spec) 19.6 % 19-41 [facility] BUN/creatinine ratioOrdered By: Jose J Claudio on 03-19-2025 Urea nitrogen/Creatinine [Mass ratio] 13.9 mg/mg 10- [facility] Basic Metabolic Profile (BMP )on 03-19-2025 BUN/CRE 13.9 RATIO Normal - [facility] Comment on above: Performed By: #### L 500.2500, L501.4021, L100.0100 #### [facility] [address] [place], [address] Calcium [Mass/Vol] 9.3 mg/dL Normal 7.6-11.0 [facility] Comment on above: Performed By: #### L 500.2500, L501.4021, L100.0100 #### [facility] [address] [place], [address] Chloride [Moles/Vol] 98 mmol/L Normal 98-108 [facility] Comment on above: Performed By: #### L 500.2500, L501.4021, L100.0100 #### [facility] [address] [place], [address] CO2 [Moles/Vol] 21.1 mmol/L Normal 21.0-32.0 [facility] Comment on above: Performed By: #### L 500.2500, L501.4021, L100.0100 #### [facility] [address] [place], [address] Creatinine [Mass/Vol] 0.84 mg/dL Normal 0.70-1.20 [facility] Comment on above: Performed By: #### L 500.2500, L501.4021, L100.0100 #### [facility] [address] [place], [address] ECRCL 114.42 ml/min Normal 50-250 [facility] Comment on above: Performed By: #### L 500.2500, L501.4021, L100.0100 #### [facility] [address] [place], [address] GAP 16 High 5-15 [facility] Comment on above: Performed By: #### L 500.2500, L501.4021, L100.0100 #### [facility] [address] [place], [address] GFR/1.73 sq M.predicted among non-blacks MDRD (S/P/Bld) [Vol rate/Area] 83 mL/min/{1.73_m2} Normal >60 [facility] Comment on above: Result Comment: mL/m in/1.73m2 CKD-EPI Creatinine Equation (2020) Performed By: #### L 500.2500, L501.4021, L100.0100 #### [facility] [address] [place], [address] Glucose [Mass/Vol] 253 mg/dL High 70-99 [facility] Comment on above: Performed By: #### L 500.2500, L501.4021, L100.0100 #### [facility] [address] [place], [address] Potassium [Moles/Vol] 3.9 mmol/L Normal 3.3-5.1 [facility] Comment on above: Performed By: #### L 500.2500, L501.4021, L100.0100 #### [facility] [address] [place], [address] Sodium [Moles/Vol] 135 mmol/L Normal 133-145 [facility] Comment on above: Performed By: #### L 500.2500, L501.4021, L100.0100 #### [facility] [address] [place], [address] Urea nitrogen [Mass/Vol] 12 mg/dL Normal 4-19 [facility] Comment on above: Performed By: #### L 500.2500, L501.4021, L100.0100 #### [facility] [address] [place], [address] Basophil percentageOrdered B y: Jose J Shanon on 03-19-2025 Basophils/100 WBC (Bld) 0.5 % 0-1 [facility] CBC W/Diff, Automatedon 02-23 Absolute Lymph 2.09 X10 3/uL Normal 0.83-4.51 [facility] Comment on above: Performed By: #### L 500.2500, L501.4021, L100.0100 #### [facility] [address] [place], [address] Absolute Neut 7.8 X10 3/uL High 2.0-7.7 [facility] Comment on above: Performed By: #### L 500.2500, L501.4021, L100.0100 #### [facility] [address] [place], [address] Basophils/100 WBC (Bld) 0.5 % Normal 0-1 [facility] Comment on above: Performed By: #### L 500.2500, L501.4021, L100.0100 #### [facility] [address] [place], [address] Eosinophils/100 WBC (Bld) 1.9 % Normal 0-5 [facility] Comment on above: Performed By: #### L 500.2500, L501.4021, L100.0100 #### [facility] [address] [place], [address] Erythrocyte distribution width (RBC) [Ratio] 13.9 % Normal 11.6-14.6 [facility] Comment on above: Performed By: #### L 500.2500, L501.4021, L100.0100 #### [facility] [address] [place], [address] Hematocrit (Bld) [Volume fraction] 35.0 % Low 37-47 [facility] Comment on above: Performed By: #### L 500.2500, L501.4021, L100.0100 #### [facility] [address] [place], [address] Hemoglobin (Bld) [Mass/Vol] 11.5 g/dL Low 12.0-15.0 [facility] Comment on above: Performed By: #### L 500.2500, L501.4021, L100.0100 #### [facility] [address] [place], [address] IG% 0.500 Normal 0.0-0.9 [facility] Comment on above: Result Comment: IG% - Immature Granulocytes (promyelocytes, myelocytes and metamyelocytes) > 1% indicates that a LEFT SHIFT is Present. Performed By: #### L 500.2500, L501.4021, L100.0100 #### [facility] [address] [place], [address] Lymphocytes/100 WBC (Bld) 19.6 % Normal 19-41 [facility] Comment on above: Performed By: #### L 500.2500, L501.4021, L100.0100 #### [facility] [address] [place], [address] MCH (RBC) [Entitic mass] 29.3 pg Normal 27.0-32.0 [facility] Comment on above: Performed By: #### L 500.2500, L501.4021, L100.0100 #### [facility] [address] [place], [address] MCHC (RBC) [Mass/Vol] 32.9 g/dL Normal 32-36 [facility] Comment on above: Performed By: #### L 500.2500, L501.4021, L100.0100 #### [facility] [address] [place], [address] MCV (RBC) [Entitic vol] 89.3 fL Normal 81-99 [facility] Comment on above: Performed By: #### L 500.2500, L501.4021, L100.0100 #### [facility] [address] [place], [address] Monocytes/100 WBC (Bld) 5.1 % Normal 0-10 [facility] Comment on above: Performed By: #### L 500.2500, L501.4021, L100.0100 #### [facility] [address] [place], [address] Neutrophils/100 WBC (Bld) 72.4 % High 47-70 [facility] Comment on above: Performed By: #### L 500.2500, L501.4021, L100.0100 #### [facility] [address] [place], [address] Nucleated RBC (Bld) [#/Vol] 0 10*3/uL Normal 0-5 [facility] Comment on above: Performed By: #### L 500.2500, L501.4021, L100.0100 #### [facility] [address] [place], [address] Platelet mean volume (Bld) [Entitic vol] 10.4 fL Normal 6.2-12.0 [facility] Comment on above: Performed By: #### L 500.2500, L501.4021, L100.0100 #### [facility] [address] [place], [address] Platelets (Bld) [#/Vol] 252 10*3/uL Normal 150-450 [facility] Comment on above: Performed By: #### L 500.2500, L501.4021, L100.0100 #### [facility] [address] [place], [address] RBC (Bld) [#/Vol] 3.92 10*6/uL Low 4.2-5.4 [facility] Comment on above: Performed By: #### L 500.2500, L501.4021, L100.0100 #### [facility] [address] [place], [address] RDW SD 45.1 fl High 35.1-43.9 [facility] Comment on above: Performed By: #### L 500.2500, L501.4021, L100.0100 #### [facility] [address] [place], [address] WBC (Bld) [#/Vol] 10.7 10*3/uL Normal 4.4-11.0 [facility] Comment on above: Performed By: #### L 500.2500, L501.4021, L100.0100 #### [facility] [address] [place], [address] CTA Chest W/WO Contraston CTA Chest W/WO Contrast [facility] Imaging Services [address] [place] [address] CTA Chest W/WO Contrast MR#: [id number] Acct: [id number] Name: JOYCE AMIN Rep #: [id number] : 1970 F 54 From: Yoel Nicolas MD PCP: Manas Bullard PA-C Status: REG ER Study: CTA Chest W/WO Contrast Date of Exam: 03/19/25 Exam# [id number] Ordering Dr: Jose J lCaudio DO PROCEDURE: CTA CHEST W/WO CONTRAST 03/19/2025 REASON FOR EXAM: PAIN WITH DEEP INSPIRATION TECHNIQUE: CTA axial imaging of the chest with intravenous contrast. Multiplanar and multisequence images were obtained. 3D, 3D post processing, 3D reconstructions, Maximum intensity projection (MIPs) Volume rendering and Shaded surface rendering was provided. PATIENT PREPARATION: Per protocol One or more dose reduction techniques were used (e.g., Automated exposure control, adjustment of the mA and/or kV according to patient size, use of iterative reconstruction technique). COMPARISON: Chest x-ray earlier today FINDINGS: Hardware: None Lymph nodes: Unremarkable Heart: No cardiomegaly. Thoracic Aorta: No thoracic aortic aneurysm or dissection. Pulmonary Vessels: No large central pulmonary emboli are identified. Contrast timing is suboptimal for evaluation of more distal branches. Most Proximal Level of Embolus (if embolus present): Lungs and Airways: The lungs are normally expanded and clear. Pleura: No pleural effusion. No pneumothorax. Upper Abdomen: Visualized portions of the upper abdominal viscera are unremarkable. Bones: Bone windows are unremarkable. CT/CTA Chest W/WO Contrast IMPRESSION: NORMAL CHEST CTA. NO EVIDENCE OF ACUTE PULMONARY EMBOLISM. Reading Location: [id number] CC: PETER Bullard; Dr. Jose J Claudio DO Thermostat Repairer: Signed Normal [facility] Carbon dioxide, total [Moles /volume] in Central venous bloodOrdered By: Jose J Claudio on 03-19-2025 CO2 [Moles/Vol] 21.1 mmol/L 21.0-32.0 [facility] Chest PA and Lateralon 03-19 Chest PA and Lateral [facility] Imaging Services [address] [place], [place] [address] Chest PA and Lateral MR#: [id number] Acct: [id number] Name: JOYCE AMIN Rep #: [id number] : 1970 F 54 From: Yoel Nicolas MD PCP: Manas Bullard PA-C Status: REG ER Study: Chest PA and Lateral Date of Exam: 03/19/25 Exam# [id number] Ordering Dr: Jose J Claudio DO PROCEDURE: CHEST PA AND LATERAL 03/19/2025 REASON FOR EXAM: CHEST PAIN TECHNIQUE: Frontal and lateral views of the chest. FINDINGS: Hardware: None Heart: The heart size is normal. Mediastinum: The mediastinal contour is unremarkable. Lungs: The lungs are clear. Bones: The bones are unremarkable. RAD/Chest PA and Lateral IMPRESSION: NO ACUTE FINDINGS. Reading Location: [id number] CC: PETER Bullard; Dr. Jose J Claudio DO Thermostat Repairer: Signed Normal [facility] Chloride assayOrdered By: Vinnie Claudio on 03-19-2025 Chloride [Moles/Vol] 98 mmol/L 98-108 [facility] D-Dimer Quantitative (DVT/PE )on 03-19-2025 D-DIMER QUANT 2.50 FEU/ug/m Invalid Interpretation Code 0.27-0.49 [facility] Comment on above: Result Comment: D-Di lizzeth ELEVATED (>0.49): Additional studies and clinical assessments are indicated to conclude diagnosis of: Deep Vein Thrombosis (DVT) or Pulmonary Embolism (PE) CRITICAL VALUE CALLED TO ELLEN JAMES 03/19/252058 [place]. RESULTS READ BACK BY SAME. Performed By: #### L 500.2500, L501.4021, L100.0100 #### [facility] [address] [place], [address] D-dimer measurement for deep venous thrombosisOrdered By: Jose J Claudio on 03-19-2025 D-Dimer Quantitative (PE/DVT) 2.50 FEU/ug/m High 0.27-0.49 [facility] Comment on above: D-Dimer ELEVATED (>0 .49): Additional studies and clinicalassessments are indicated to conclude diagnosis of:Deep Vein Thrombosis (DVT) or Pulmonary Embolism (PE)CRITICAL VALUE CALLED TO ELLEN JAMES03/19/252058 [place].RESULTS READ BACK BY SAME. Emergency Department Summary on 03-19-2025 Emergency Department Summary [facility] Medical Records Department [address] [place] [address] Emergency Department Summary 03/19/25 MR#: [id number] Acct: [id number] Name: JOYCE AMIN Rep #: [id number] : 1970 54 From: Jose J Claudio DO PCP: Manas Bullard PA-C Status:REG ER Location: ED HPI History of Present Illness Chief Complaint: Chest Pain Narrative Narrative: Patient is a 54-year-old female with past medical history of GERD, tobacco use, type 2 diabetes, hypothyroidism who presents to the emergency department with chief complaint of chest pain. Patient states that her chest pain started a couple hours ago while cleaning. She states that the pain has slowly gotten worse prompting her to call EMS to be brought here for further evaluation management. Patient states that she was given aspirin and nitro en route and states that the nitro did not help her chest pain. States that it is a stabbing pain. And does not radiating where stays on the left side of chest. Patient denies any nausea associate with this denies any back pain. Patient denies recent travel history denies any history of blood clots. States that her pain is worse with deep inspiration. [facility] Medical History Tobacco abuse GERD (gastroesophageal reflux disease) Hyperlipidemia Morbid obesity Type 2 diabetes mellitus Hypothyroidism Home Medications ???Medication ???Instructions ???Recorded ???Last Taken ???Type levothyroxine 75 mcg tablet 75 mg PO DAILY 03/24/19 04/08/19 H istory metformin 1,000 mg tablet 1,000 mg PO BID 03/24/19 04/08/19 History rosuvastatin 10 mg tablet 10 mg PO DAILY 08/20/22 Unknown Hi story cyclobenzaprine 5 mg tablet 5 mg PO TID PRN muscle spasm #20 0 03/19/25 Unknown Rx tabs dulaglutide 4.5 mg/0.5 mL 4.5 mg subcut QWEEK 03/19/25 Unkno wn History subcutaneous pen injector (Trulicity) lidocaine 5 % topical patch 1 patch topical DAILY PRN pain #15 03/19/25 Unknown Rx ea Allergy/AdvReac Type Severity Reaction Status Date / Time adhesive tape Allergy Rash Verified 03/19/25 18:18 cobalt Allergy Anaphylaxis Verified 03/19/25 18:18 Latex, Natural Rubber Allergy Rash Verified 03/19/25 18:18 nickel Allergy Rash Verified 03/19/25 18:18 Surgical History History of cholecystectomy Social History Smoking Status: Current every day smoker tobacco type: cigarettes ROS ROS ED ROS Narrative Constitutional: Denies any fevers, chills, headache Cardiovascular: Complains of left-sided chest pain as noted above denies any palpitations Respiratory: Denies coughing wheezing shortness of breath Abdomen: Denies abdominal pain nausea vomit diarrhea : Denies urinary symptoms Neurological: Denies numbness, weakness, tingling Musculoskeletal: Denies back pain Skin: Denies rashes or lesions EXAM Physical Exam Narrative Exam Narrative: General: Patient lying in bed rest comfortably did not appear to be in acute distress Head: Atraumatic, normocephalic Eyes: PERRL bilaterally, EOMI bilaterally, no conjunctival injection noted Neck: Soft, supple, trachea midline Cardiovascular: Regular rate and rhythm no murmurs gallops rubs noted Respiratory: Clear to auscultation bilaterally Abdomen: Soft, nondistended, nontender to palpation Extremities: Radial pulses +2/4 in the bilateral upper extremities, +5/5 strength noted in the bilateral upper and lower extremities, no pedal edema on exam Neurological: Patient following commands knew that she was at [facility] there is 2024 Skin: Warm, dry, intact no rashes lesions noted Const Vital Signs: 03/19/25 18:14 03/19/25 18:20 03/19/25 18:26 Temperature 98.3 F Temperature Source Oral Pulse Rate 100 Respiratory Rate 22 H Respiratory Effort Normal Blood Pressure 139/72 H Blood Pressure Mean 94 Pulse Ox 100 98 Oxygen Delivery Method Room Air Room Air 03/19/25 19:00 03/19/25 20:00 03/19/25 21:00 Temperature Temperature Source Pulse Rate 94 72 75 Respiratory Rate 18 16 18 Respiratory Effort Blood Pressure 122/64 H 120/61 124/66 H Blood Pressure Mean 83 80 85 Pulse Ox 98 100 100 Oxygen Delivery Method Room Air Room Air Room Air MDM MDM MDM Narrative Medical decision making narrative: patient is a 54-year-old female who presents to the emergency department the chief complaint of left-sided chest pain. On the differential diagnose includes but not limited to ACS, pneumothorax, musculoskeletal strain. Once workup is obtained reviewed she will be reevaluated. As noted earlier patient received nitroglycerin and aspirin in route via EMS and the nitroglycerin did not (more content not included)... Normal [facility] Eosinophil percentageOrdered By: Jose J Claudio on 03-19-2025 Eosinophils/100 WBC (Bld) 1.9 % 0-5 [facility] Erythrocyte distribution wid th (RBC) [Ratio]Ordered By: Jose J Claudio on 03-19-2025 Erythrocyte distribution width (RBC) [Entitic vol] 45.1 fL High 35.1-43.9 [facility] Erythrocyte distribution wid th ratioOrdered By: Jose J Claudio on 03-19-2025 Erythrocyte distribution width (RBC) [Ratio] 13.9 % 11.6-14.6 [facility] Erythrocyte distribution wid th standard deviationOrdered By: Jose J Claudio on 03-19-2025 Erythrocyte distribution width (RBC) [Ratio] 45.1 fl High 35.1-43.9 [facility] Estimation of creatinine lynette aranceOrdered By: Jose J Claudio on 03-19-2025 Estimated Creatinine Clearance Calc 114.42 ml/min 50-250 [facility] GFR/1.73 sq M.predicted michael g non-blacks MDRD (S/P/Bld) [Vol rate/Area]Ordered By: Jose J Claudio on 03-19-2025 Estimated GFR (MDRD) Non-Af Amer 83 >60 [facility] Comment on above: mL/min/1.73m2 CKD-EP I Creatinine Equation (2020) Glomerular filtration rate ( GFR) estimation/1.73 sq m using serum, plasma, or whole bOrdered By: Jose J Claudio on 03-19-2025 GFR/1.73 sq M.predicted among non-blacks MDRD (S/P/Bld) [Vol rate/Area] 83 mL/min/{1.73_m2} >60 [facility] Comment on above: mL/min/1.73m2 CKD-EP I Creatinine Equation (2020) Hematocrit Auto (Bld) [Volum e fraction]Ordered By: Jose J Claudio on 03-19-2025 Hematocrit (Bld) [Volume fraction] 35.0 % Low 37-47 [facility] Hemoglobin measurementOrdere d By: Jose J Claudio on 03-19-2025 Hemoglobin (Bld) [Mass/Vol] 11.5 g/dL Low 12.0-15.0 [facility] Immature granulocytes/100 WB C Auto (Bld)Ordered By: Jose J Claudio on 03-19-2025 Immature granulocytes/100 WBC (Bld) 0.500 % 0.0-0.9 [facility] Comment on above: IG% - Immature Granu locytes (promyelocytes, myelocytes and metamyelocytes) > 1% indicates that a LEFT SHIFT is Present. L499.0042on 03-19-2025 Trop T High Sen 8 ng/L Normal <=14 [facility] Comment on above: Performed By: #### L 499.0042 #### [facility] [address] [place], [address] L499.0043on 03-19-2025 Trop T High Sen Normal <=14 [facility] Comment on above: Result Comment: Canc elled via OM: Order cancelled - Patient discharged Performed By: #### L 499.0043 #### [facility] [address] [place], [address] L501.4021on 03-19-2025 Trop T High Sen 15 ng/L High <=14 [facility] Comment on above: Performed By: #### L 500.2500, L501.4021, L100.0100 #### [facility] [address] [place], [address] Lymphocytes Auto (Unsp spec) [#/Vol]Ordered By: Jose J Claudio on 03-19-2025 Lymphocytes (Bld) [#/Vol] 2.09 10*3/uL 0.83-4.51 [facility] Lymphocytes/100 WBC Auto (Un sp spec)Ordered By: Jose J Claudio on 03-19-2025 Lymphocytes/100 WBC (Bld) 19.6 % 19-41 [facility] MCV (mean corpuscular volume ) determinationOrdered By: Jose J Claudio on 03-19-2025 MCV (RBC) [Entitic vol] 89.3 fL 81-99 [facility] Mean corpuscular hemoglobin (MCH) determinationOrdered By: Jose J Claudio on 03-19-2025 MCH (RBC) [Entitic mass] 29.3 pg 27.0-32.0 [facility] Mean corpuscular hemoglobin concentration (MCHC) determinationOrdered By: Jose J Claudio on 03-19-2025 MCHC (RBC) [Mass/Vol] 32.9 g/dL 32-36 [facility] Mean platelet volume determi nationOrdered By: Jose J Claudio on 03-19-2025 Platelet mean volume (Bld) [Entitic vol] 10.4 fL 6.2-12.0 [facility] Monocyte percentageOrdered B y: Jose J Claudio on 03-19-2025 Monocytes/100 WBC (Bld) 5.1 % 0-10 [facility] Neutrophil percentageOrdered By: Jose J Claudio on 03-19-2025 Neutrophils/100 WBC (Bld) 72.4 % High 47-70 [facility] Nucleated red blood cell per centageOrdered By: Jose J Claudio on 03-19-2025 Nucleated RBC/100 WBC (Bld) [Ratio] 0 % 0-5 [facility] Platelet countOrdered By: Vinnie Claudio on 03-19-2025 Platelets (Bld) [#/Vol] 252 10*3/uL 150-450 [facility] Potassium (Unsp spec) [Mass/ Vol]Ordered By: Jose J Claudio on 03-19-2025 Potassium [Moles/Vol] 3.9 mmol/L 3.3-5.1 [facility] Potassium measurement (mass/ volume)Ordered By: Jose J Claudio on 03-19-2025 Potassium (Unsp spec) [Mass/Vol] 3.9 mmol/L 3.3-5.1 [facility] RBC Auto (Bld) [#/Vol]Ordere d By: Jose J Claudio on 03-19-2025 RBC (Bld) [#/Vol] 3.92 10*6/uL Low 4.2-5.4 [facility] Serum creatinine measurement (mass/volume)Ordered By: Jose J Claudio on 03-19-2025 Creatinine [Mass/Vol] 0.84 mg/dL 0.70-1.20 [facility] Serum glucose measurement (m ass/volume)Ordered By: Jose J Claudio on 03-19-2025 Glucose [Mass/Vol] 253 mg/dL High 70-99 [facility] Serum or plasma calcium raymundo urement (mass/volume)Ordered By: Jose J Claudio on 03-19-2025 Calcium [Mass/Vol] 9.3 mg/dL 7.6-11.0 [facility] Serum or plasma urea nitroge n measurement (mass/volume)Ordered By: Jose J Claudio on 03-19-2025 Urea nitrogen [Mass/Vol] 12 mg/dL 4-19 [facility] Sodium levelOrdered By: Donna Claudio on 03-19-2025 Sodium [Moles/Vol] 135 mmol/L 133-145 [facility] Troponin T.cardiac High sens itivity method [Mass/Vol]Ordered By: Jose J Claudio on 03-19-2025 Troponin T High Sensitivity 2 Hour 8 ng/L <14 [facility] Troponin T High Sensitivity 15 ng/L High <14 [facility] Troponin T.cardiac [Mass/vol ume] in Serum or Plasma by High sensitivity methodOrdered By: Jose J Claudio on 03-19-2025 Troponin T.cardiac High sensitivity method [Mass/Vol] 8 ng/L <14 [facility] Troponin T.cardiac High sensitivity method [Mass/Vol] 15 ng/L High <14 [facility] White blood cell (WBC) count Ordered By: Jose J Claudio on 03-19-2025 WBC (Bld) [#/Vol] 10.7 10*3/uL 4.4-11.0 [facility] C-REACTIVE PROTEINon 025 CRP 1.34 mg/dl High 0.00 - 0.90 [facility] Comment on above: Performed By: #### 2 51524 #### [facility],[address] [place] [address] CBC + DIFFon 02-11-2025 Baso # 0.02 x10EE3/UL Normal 0.00 - 0.10 [facility] Comment on above: Performed By: #### 2 44752 #### [facility],[address] [place] [address] Basophils/100 WBC (Bld) 0.3 % Normal 0.0 - 2.0 [facility] Comment on above: Performed By: #### 2 60896 #### [facility],[address] [place] [address] CBC + DIFF Normal [facility] Comment on above: Result Comment: CBC- COMPLETE BLOOD COUNT Performed By: #### 2 75583 #### [place] [address] EO # 0.21 x10EE3/UL Normal 0.00 - 0.50 [facility] Comment on above: Performed By: #### 2 18631 #### [facility],[address] [place] [address] Eosinophils/100 WBC (Bld) 2.9 % Normal 0.0 - 7.0 [facility] Comment on above: Performed By: #### 2 23759 #### [place] [address] Erythrocyte distribution width (RBC) [Ratio] 13.6 % Normal 12.0 - 15.6 [facility] Comment on above: Performed By: #### 2 19287 #### [place] [address] Hematocrit (Bld) [Volume fraction] 35.7 % Normal 34.0 - 46.0 [facility] Comment on above: Performed By: #### 2 68619 #### [facility],[address] [place] [address] Hemoglobin (Bld) [Mass/Vol] 12.1 g/dL Normal 12.0 - 16.0 [facility] Comment on above: Performed By: #### 2 54834 #### [facility],[address] [place] [address] Lymph # 1.67 x10EE3/UL Normal 0.80 - 2.80 [facility] Comment on above: Performed By: #### 2 45752 #### [facility],[address] [place] [address] Lymphocytes/100 WBC (Bld) 23.3 % Normal 20.0 - 45.0 [facility] Comment on above: Performed By: #### 2 29155 #### [facility],[address] [place] [address] MANUAL DIFF N/A Normal [facility] Comment on above: Performed By: #### 2 88688 #### [facility],[address] [place], [place] [id number] MCH (RBC) [Entitic mass] 30 pg Normal 27 - 33 [facility] Comment on above: Performed By: #### 2 52466 #### [facility],[address] [place], [place] [id number] MCHC 34 X10 3 Normal 32 - 36 [facility] Comment on above: Performed By: #### 2 07613 #### [facility],[address] [place], [place] [id number] MCV (RBC) [Entitic vol] 88 fL Normal 80 - 99 [facility] Comment on above: Performed By: #### 2 70604 #### [facility],[address] [place] [address] [place] # 0.40 x10EE3/UL Normal 0.20 - 1.00 [facility] Comment on above: Performed By: #### 2 51802 #### [facility],[address] [place] [address] MONOS % 5.6 % Normal 0.0 - 10.0 [facility] Comment on above: Performed By: #### 2 06196 #### [facility],[address] [place] [address] Morphology Norberto (Bld) [Interp] N/A Normal [facility] Comment on above: Performed By: #### 2 92962 #### [facility],[address] [place] [address] Neut # 4.85 x10EE3/UL Normal 1.50 - 7.10 [facility] Comment on above: Performed By: #### 2 24887 #### [facility],[address] [place] [address] Neutrophils/100 WBC (Bld) 67.9 % Normal 46.0 - 76.0 [facility] Comment on above: Performed By: #### 2 57680 #### [facility],[address] [place] [address] PLATELET 267 x10EE3/UL Normal 150 - 450 [facility] Comment on above: Performed By: #### 2 49514 #### [facility],[address] [place] [address] Platelet mean volume (Bld) [Entitic vol] 7.4 fL Normal 6.6 - 10.5 [facility] Comment on above: Result Comment: AUTO MATED DIFFERENTIAL Performed By: #### 2 19538 #### [facility],[address] [place] [address] RBC 4.05 x 10EE6/UL Low 4.10 - 5.30 [facility] Comment on above: Performed By: #### 2 91347 #### [place] [address],[place] [address] WBC 7.2 x 10EE3/UL Normal 4.5 - 10.8 [facility] Comment on above: Performed By: #### 2 17734 #### [facility],[address] [place] [address]195 CMP with eGFRon 02-11-2025 AGE 54 years Normal [facility] Comment on above: Performed By: #### 2 88806 #### [facility],[address] [place] [address] 15891 Albumin [Mass/Vol] 3.9 g/dL Normal 3.4 - 5.0 [facility] Comment on above: Performed By: #### 2 65228 #### [facility],[address] [place] [address] 38243 Albumin/Globulin [Mass ratio] 1.0 {ratio} Normal 0.9 - 1.6 [facility] Comment on above: Performed By: #### 2 88500 #### [facility],[address] [place] [address]256 ALK PHOS 124 U/L High 46 - 116 [facility] Comment on above: Performed By: #### 2 45230 #### [facility],[address] [place] [address] 50570 ALT [Catalytic activity/Vol] 20 U/L Normal 16 - 63 [facility] Comment on above: Performed By: #### 2 97636 #### [facility],[address] [place] [address] 44725 Anion gap [Moles/Vol] 11 mmol/L Normal 10 - 20 [facility] Comment on above: Performed By: #### 2 10989 #### [facility],[address] [place] [address]1981 AST [Catalytic activity/Vol] 15 U/L Normal 13 - 39 [facility] Comment on above: Performed By: #### 2 34160 #### [facility],[address] [place] [address] 90121 B/C RATIO 15 ratio Normal 0 - 30 [facility] Comment on above: Performed By: #### 2 64816 #### [facility],[address] [place] [address]42 Bilirubin [Mass/Vol] 0.3 mg/dL Normal 0.2 - 1.0 [facility] Comment on above: Performed By: #### 2 30626 #### [facility],[address] [place] [address] 99491 Calcium [Mass/Vol] 8.9 mg/dL Normal 8.5 - 10.1 [facility] Comment on above: Performed By: #### 2 92874 #### [facility],[address] [place] [address] 04060 Chloride [Moles/Vol] 102 mmol/L Normal 98 - 107 [facility] Comment on above: Performed By: #### 2 19101 #### [facility],[address] [place] [address] 84637 CMP with eGFR Normal [facility] Comment on above: Result Comment: COMP REHENSIVE METABOLIC PANEL Performed By: #### 2 36490 #### [facility],[address] [place] [address] 04010 CO2 [Moles/Vol] 28.1 mmol/L Normal 21.0 - 32.0 [facility] Comment on above: Performed By: #### 2 50015 #### [facility],[address] [place] [address]234 Creatinine [Mass/Vol] 0.89 mg/dL Normal 0.55 - 1.02 [facility] Comment on above: Performed By: #### 2 30971 #### [facility],[address] [place] [address] 24751 GFR/1.73 sq M.predicted among non-blacks MDRD (S/P/Bld) [Vol rate/Area] mL/min/{1.73_m2} Normal 60 - 999 [facility] Comment on above: Performed By: #### 2 84587 #### [facility],[address] [place] [address] 65726 Result Comment: ACCO RDING TO THE NATIONAL KIDNEY DISEASE EDUCATION PROGRAM(NKDE), A NORMAL eGFR IS A VALUE GREATER THAN OR EQUAL TO 60 ML/MIN/1.73 SQ METERS. CHRONIC KIDNEY DISEASE: <60mL/MIN/1.73 SQ METERS KIDNEY FAILURE: <15mL/MIN/1.73 SQ METERS THIS TEST SHOULD ONLY BE USED FOR PATIENTS 18 YEARS OF AGE AND OLDER. Globulin (S) [Mass/Vol] 3.8 g/dL Normal 1.5 - 3.8 [facility] Comment on above: Performed By: #### 2 36292 #### [address] [address] Glucose [Mass/Vol] 232 mg/dL High 74 - 106 [facility] Comment on above: Performed By: #### 2 27985 #### [address] [address] Potassium [Moles/Vol] 3.6 mmol/L Normal 3.5 - 5.1 [facility] Comment on above: Performed By: #### 2 99801 #### [address] [address] Protein [Mass/Vol] 7.7 g/dL Normal 6.4 - 8.2 [facility] Comment on above: Performed By: #### 2 39894 #### [address] [address] Sodium [Moles/Vol] 137 mmol/L Normal 136 - 145 [facility] Comment on above: Performed By: #### 2 15594 #### [address] [address] Urea nitrogen [Mass/Vol] 13 mg/dL Normal 7 - 18 [facility] Comment on above: Performed By: #### 2 77248 #### [facility],[address] [place] [address] 03146 D-DIMER, QUANTITATIVEon 01-23 D-DIMER QUANT 397 ng/ml High 0 - 230 [facility] Comment on above: Performed By: #### 2 70723 #### [facility],[address] [place] [address] 10610 D-DIMER, QUANTITATIVE Normal [facility] Comment on above: Result Comment: GARCÍA T D-DIMER Performed By: #### 2 04117 #### [facility],[address] [place] [address] 72151 NT-proBNPon 02-11-2025 Natriuretic peptide B (Bld) [Mass/Vol] 31 pg/mL Normal 0 - 125 [facility] Comment on above: Performed By: #### 2 92326 #### [facility],[address] [place] [address] 14949 SEDRATEon 02-11-2025 SEDRATE 28 mm/hr Normal 0 - 30 [facility] Comment on above: Performed By: #### 2 27900 #### [facility],[address] [place] [address] 25706 TROPONINon 02-11-2025 HS TROPONIN 4.3 pg/mL Normal 0.0 - 51.4 [facility] Comment on above: Performed By: #### 2 02623 #### [facility],[address] [place] [address] 24988 .GFRon 01-07-2025 Estimated Glomerular Filtration Rate 102 ml/min/1.73sqm [facility] Comment on above: Result Comment: Stages of Chronic Kidney Disease (CKD) Stage Description eGFR(ml/min/1.73 sq.m.) CKD 1 Normal kidney function or >=90 normal kindney function with possible kidney damage (ex. Proteinuria) CKD 2 Kidney damage with mild loss 60-89 of kidney function CKD 3a Mild to moderate loss of kidney 45-59 function CKD 3b Moderate to severe loss of 30-44 of kindey function CKD 4 Severe loss of kidney function 15-29 CKD 5 Kidney failure <15 Note: (go live 2024) the eGFR calculation was updated to the 2020 CKD-EPI creatinine equation without a race factor to calculate the eGFR results. Performed By: #### L IPID, TSH, GFR, BMP, ALT, AST, FT4 #### [address] [address] ALT/SGPTon 01-07-2025 ALT [Catalytic activity/Vol] 16 U/L Normal 10-49 [facility] Comment on above: Performed By: #### L IPID, TSH, GFR, BMP, ALT, AST, FT4 #### [place] [id number] [place] 01-07-2025 AST [Catalytic activity/Vol] 16 U/L Normal 8-34 [facility] Comment on above: Performed By: #### L IPID, TSH, GFR, BMP, ALT, AST, FT4 #### [place] [address] BMPon 01-07-2025 BUN/Creatinine Ratio 19.7 ratio Normal 10.0-22.0 [facility] Comment on above: Performed By: #### L IPID, TSH, GFR, BMP, ALT, AST, FT4 #### [address] [address] Calcium [Mass/Vol] 9.8 mg/dL Normal 8.7-10.4 [facility] Comment on above: Performed By: #### L IPID, TSH, GFR, BMP, ALT, AST, FT4 #### [address] [address] Chloride [Moles/Vol] 103 mmol/L Normal 98-110 [facility] Comment on above: Performed By: #### L IPID, TSH, GFR, BMP, ALT, AST, FT4 #### [place] [address] CO2 [Moles/Vol] 27 mmol/L Normal 22-32 [facility] Comment on above: Performed By: #### L IPID, TSH, GFR, BMP, ALT, AST, FT4 #### [place] [id number] Creatinine [Mass/Vol] 0.71 mg/dL Normal 0.50-1.20 [facility] Comment on above: Result Comment: Test ing performed on Cloud Content analyzer using enzymatic creatinine methodology. Performed By: #### L IPID, TSH, GFR, BMP, ALT, AST, FT4 #### [place] [id number] Electrolyte Balance 7.0 mEq/L Normal 4.0-15.0 [facility] Comment on above: Performed By: #### L IPID, TSH, GFR, BMP, ALT, AST, FT4 #### [place] [id number] Glucose [Mass/Vol] 122 mg/dL High 70-110 [facility] Comment on above: Performed By: #### L IPID, TSH, GFR, BMP, ALT, AST, FT4 #### [place] [id number] Potassium [Moles/Vol] 4.0 mmol/L Normal 3.5-5.0 [facility] Comment on above: Performed By: #### L IPID, TSH, GFR, BMP, ALT, AST, FT4 #### [address] [address] Sodium [Moles/Vol] 137 mmol/L Normal 136-145 [facility] Comment on above: Performed By: #### L IPID, TSH, GFR, BMP, ALT, AST, FT4 #### [address] [address] Urea nitrogen [Mass/Vol] 14.0 mg/dL Normal 8.0-22.0 [facility] Comment on above: Performed By: #### L IPID, TSH, GFR, BMP, ALT, AST, FT4 #### [address] [address] FT4on 01-07-2025 Free T4 [Mass/Vol] 1.16 ng/dL Normal 0.89-1.76 [facility] Comment on above: Result Comment: No te - New Reference Range in effect 20 Performed By: #### L IPID, TSH, GFR, BMP, ALT, AST, FT4 #### [address] [address] LIPIDon 01-07-2025 Cholesterol [Mass/Vol] 208 mg/dL High 50-199 [facility] Comment on above: Result Comment: Chol esterol Reference Interval: Less than 200 Desirable 200-239 Borderline high risk 240 and above High risk Performed By: #### L IPID, TSH, GFR, BMP, ALT, AST, FT4 #### [place] [address] Cholesterol in HDL [Mass/Vol] 42 mg/dL Normal 40-59 [facility] Comment on above: Performed By: #### L IPID, TSH, GFR, BMP, ALT, AST, FT4 #### [place] [address] Cholesterol in LDL [Mass/Vol] 122 mg/dL Normal 0-129 [facility] Comment on above: Performed By: #### L IPID, TSH, GFR, BMP, ALT, AST, FT4 #### [place] [address] Triglyceride [Mass/Vol] 219 mg/dL High 3-149 [facility] Comment on above: Performed By: #### L IPID, TSH, GFR, BMP, ALT, AST, FT4 #### [place] [address] TSHon 01-07-2025 TSH 2.755 mIU/mL Normal 0.550-4.780 [facility] Comment on above: Performed By: #### L IPID, TSH, GFR, BMP, ALT, AST, FT4 #### [address] [address] Basophil percentageon 2021 Chloride [Moles/Vol] 105 mmol/L 98-107 [facility] Work Phone: Cholesterol [Mass/Vol] 110 mg/dL <200 [facility] Work Phone: Comment on above: <200 mg/dL Desirable 200-240 mg/dL Borderline >240 mg/dL High Risk Glucose [Mass/Vol] 124 mg/dL 74-106 [facility] Work Phone: Comment on above: Fasting Glucose resu lt from 100 to 125 mg/dL suggests IMPAIRED HOMEOSTASIS per A.D.A. criteria. Potassium [Moles/Vol] 3.8 mmol/L 3.5-5.1 [facility] Work Phone: Sodium [Moles/Vol] 137 mmol/L 136-145 [facility] Work Phone: Triglyceride [Mass/Vol] 210 mg/dL <199 [facility] Work Phone: Comment on above: The drugs N-Acetylcy steine and Metamizole may falsely depress this assay.Serum Triglycerides Reference Interval Normal <150 mg/dL Borderline high 150 - 199 mg/dL High 200 - 499 mg/dL Very High > or = 500 mg/dL Laboratory - Chemistry and C hemistry - challengeon 07-06-2022 ALT [Catalytic activity/Vol] 29 U/L 13-56 [facility] Work Phone: CO2 [Moles/Vol] 25.0 mmol/L 21.0-32.0 [facility] Work Phone: Free T4 [Mass/Vol] 0.95 ng/dL 0.76-1.46 [facility] Work Phone: Urea nitrogen/Creatinine [Mass ratio] 9.0 mg/mg 10-20 [facility] Work Phone: No Panel Informationon 07-06 Estimated GFR (MDRD) Amer 76 mL/min >60 [facility] Work Phone: Comment on above: GFR Calc Estimated GFR (MDRD) Non-Af Amer 62 mL/min >60 [facility] Work Phone: Comment on above: Non- GFR Calc Thyroid Stimulating Hormone (TSH) 1.86 uIU/mL 0.358-3.74 [facility] Work Phone: Serum or plasma calcium raymundo urement (mass/volume)on 07-06-2022 Calcium [Mass/Vol] 9.2 mg/dL 8.5-10.1 [facility] Work Phone: Serum or plasma cholesterol in HDL measurement (mass/volume)on 07-06-2022 Cholesterol in HDL [Mass/Vol] 39 mg/dL >40 [facility] Work Phone: Comment on above: The drugs N-Acetylcy steine and Metamizole may falsely depress this assay. Reference Range HDL <40 mg/dL Low HDL Cholesterol HDL >or= 60 mg/dL High HDL Cholesterol Serum or plasma cholesterol in VLDL measurement (mass/volume)on 07-06-2022 Cholesterol in VLDL [Mass/Vol] 42 mg/dL 5-40 [facility] Work Phone: Serum or plasma creatinine m easurement (mass/volume)on 07-06-2022 Creatinine [Mass/Vol] 1.00 mg/dL 0.55-1.02 [facility] Work Phone: Comment on above: The validity of the calculated GFR & GFRAA in patients over 70 years has not been determined. Clinical correlation is essential. Serum or plasma low density lipoprotein (LDL) cholesterol measurement (mass/volume)on 07-06-2022 Cholesterol in LDL [Mass/Vol] 29 mg/dL 0-130 [facility] Work Phone: Serum or plasma urea nitroge n measurement (mass/volume)on 07-06-2022 Urea nitrogen [Mass/Vol] 9 mg/dL 7-18 [facility] Work Phone: Thin prep Papanicolaou smear with manual screeningon 07-06-2022 Thin prep Papanicolaou smear with manual screening 17 U/L 15-37 [facility] Work Phone: Thin prep Papanicolaou smear with manual screening 7 5-15 [facility] Work Phone: Whole blood hemoglobin A1c/t otal hemoglobin ratio (mass fraction)on 07-06-2022 HbA1c (Bld) [Mass fraction] 6.3 % 3.8-5.6 [facility] Work Phone: Comment on above: Normal < 5.7 % Predi abetic 5.7 - 6.4 % Diabetic >or= 6.5 % Please note range changes. CBC and Differentialon 04-16 Abs Baso 0.08 k/uL Normal <0.11 [facility] Comment on above: Performed By: #### C BCDIF #### [facility] [employer] [facility] [place] [address] Abs [place] 0.73 k/uL Normal <0.87 [facility] Comment on above: Performed By: #### C BCDIF #### [place] [address] Abs Neut 7.92 k/uL High 1.45-7.50 [facility] Comment on above: Performed By: #### C BCDIF #### [place] [address] Absolute nRBC <0.01 Normal <0.01 [facility] Comment on above: Performed By: #### C BCDIF #### [place] [address] Basophils/100 WBC (Bld) 0.7 % Normal C [facility] Comment on above: Performed By: #### C BCDIF #### [place] [address] DTYPE Auto Diff Normal [facility] Comment on above: Performed By: #### C BCDIF #### [facility] [employer] [address] [place] [address] Eosinophils #/vol (Bld) 0.27 10*3/uL Normal <0.46 [facility] Comment on above: Performed By: #### C BCDIF #### [place] [address] Eosinophils/100 WBC (Bld) 2.5 % Normal [facility] Comment on above: Performed By: #### C BCDIF #### [place] [address] [place], [place] [address] Erythrocyte distribution width Ratio (RBC) 13.8 % Normal 11.5-15.0 [facility] Comment on above: Performed By: #### C BCDIF #### [place] [address] Hematocrit Volume Fraction (Bld) 39.8 % Normal 36.0-46.0 [facility] Comment on above: Performed By: #### C BCDIF #### [place] [address] Hemoglobin mass conc (Bld) 12.5 g/dL Normal 11.5-15.5 [facility] Comment on above: Performed By: #### C BCDIF #### [place] [address] Lymphocytes #/vol (Bld) 1.96 10*3/uL Normal 1.00-4.00 [facility] Comment on above: Performed By: #### C BCDIF #### [place] [address] [place] [address] Lymphocytes/100 WBC (Bld) 17.9 % Normal [facility] Comment on above: Performed By: #### C BCDIF #### [place] [address] [place] [address] MCH Entitic mass (RBC) 30.1 pG Normal 26.0-34.0 [facility] Comment on above: Performed By: #### C BCDIF #### [address] [address] MCHC mass conc (RBC) 31.4 g/dL Normal 30.5-36.0 [facility] Comment on above: Performed By: #### C BCDIF #### [facility] [address] [place] [address] MCV Entitic volume (RBC) 95.9 fL Normal 80.0-100.0 [facility] Comment on above: Performed By: #### C BCDIF #### [facility] [address] [place] [phone] Monocytes/100 WBC (Bld) 6.7 % Normal [facility] Comment on above: Performed By: #### C BCDIF #### [place] [phone] Neutrophils/100 WBC (Bld) 72.2 % Normal [facility] Comment on above: Performed By: #### C BCDIF #### [place] [address] [place] [phone] NRBCs 0.0 /100 WBC Normal 0 [facility] Comment on above: Performed By: #### C BCDIF #### [place] [address] [place] [phone] Platelet mean volume Entitic volume (Bld) 10.9 fL Normal 9.0-12.7 [facility] Comment on above: Performed By: #### C BCDIF #### [place] [address] [place] [phone] Platelets #/vol (Bld) 294 10*3/uL Normal 150-400 [facility] Comment on above: Performed By: #### C BCDIF #### [facility] [address] [place] [phone] RBC #/vol (Bld) 4.15 10*6/uL Normal 3.90-5.20 [facility] Comment on above: Performed By: #### C BCDIF #### [place] [address] [place] [phone] WBC #/vol (Bld) 10.96 10*3/uL Normal 3.70-11.00 [facility] Comment on above: Performed By: #### C BCDIF #### [facility] [address] [place], [place] [address] CNOVon 04-16-2019 CNOV Office Visit (GENSWS ) JOYCE AMIN Alexandr ([id number]) 1970 F Date Time Provider Department 04/16/19 8:40 AM ELIZABETH OLVERA During your visit today, we recorded the following information about you: Temperature Pulse Blood pressure 96.5 degrees 88/minute 124/74 Elizabeth Olvera MD 04/19/2019 10:10 AM Signed Joyce is s/p laparoscopic cholecystectomy on 04/09/19 She complains of right upper quadrant abdominal pain. Denies fevers. Has decreased appetite. Examination: abdomen is soft and benign. Wounds are well healed, no evidence of infection Impression: s/p laparoscopic cholecystectomy, complaint of abdominal pain Plan: will obtain CBC, LFTs Will call patient with results. If still persists with pain, may consider CT scan. If patient still has pain, to follow up with me next week. Referring Provider: SELF [[id number]] Allergies As of Date: 04/16/2019 Noted Allergy Reaction COBALT 03/26/2019 2 - Rash 9 - Itching LATEX, NATURAL RUBBER 03/26/2019 2 - Rash 9 - Itching NICKEL 03/26/2019 2 - Rash 9 - Itching Date Reviewed: 04/16/2019 Reviewed by: Eulogio Iniguez Ma - Fully Assessed Reason for Visit: Post Op [174] Primary Visit Diagnosis:Postoperativ e pain [G89.18] Other Visit Diagnosis:Status post laparoscopic cholecystectomy [Z90.49] Order(s):CBC + DIFF [SQCBCDIF] Order #: [id number] FUTURE COMP METABOLIC PANEL [SQCMP] Order #: [id number] FUTURE Prescriptions as of 04/16/2019 Sig: METFORMIN 1,000 MG TABLET Take 1,000 mg by mouth twice * LEVOTHYROXINE 75 MCG TABLET Take 75 mcg by mouth daily be* HYDROCODONE 5 MG-ACETAMINOPHE* Take 1 tablet by mouth every * ONDANSETRON 4 MG DISINTEGRATI* Take 4 mg by mouth as needed. Problem List As Of Date: 04/16/2019 (None) Encounter Status:Closed by MD ELIZABETH OLVERA on 04/19/19 Normal [facility] Comp Metabolic Panelon 04-16 Albumin mass conc 4.4 g/dL Normal 3.9-4.9 [facility] ALP enzyme act/vol 118 U/L Normal 34-123 [facility] ALT enzyme act/vol 19 U/L Normal 7-38 [facility] Anion gap molar conc 12 mmol/L Normal [facility] AST enzyme act/vol 15 U/L Normal 13-35 [facility] Comment on above: Result Comment: Hemo lysis present Bilirubin mass conc 0.3 mg/dL Normal 0.2-1.3 [facility] Calcium mass conc 9.6 mg/dL Normal 8.5-10.2 [facility] Chloride molar conc 100 mmol/L Normal 97-105 [facility] CO2 molar conc 23 mmol/L Normal 22-30 [facility] Creatinine mass conc 0.73 mg/dL Normal 0.58-0.96 [facility] eGFR- Amer. >60 Normal [facility] GFR/1.73 sq M predicted among non-blacks MDRD vol rate/area (S/P/Bld) mL/min/{1.73_m2} Normal [facility] Comment on above: Result Comment: eGFR (Estimated GFR) Units of measure: mL/min/1.73 meters squared eGFR is derived from the reexpressed MDRD Study equation using the following parameters: serum creatinine, age, gender and race. The creatinine assay has been calibrated to be traceable to IDMS. An eGFR <60 mL/min/1.73m2 for >3 months is consistent with chronic kidney disease. Refer to OQI guidelines for clinical interpretation. In patients with unstable renal function, e.g. those with acute kidney injury, the eGFR may not accurately reflect actual GFR. Glucose mass conc 171 mg/dL High 74-99 [facility] Comment on above: Result Comment: The [place] [employer] (ADA) provides guidance for cutoff values for fasting glucose and random glucose. The ADA defines fasting as no caloric intake for at least 8 hours. Fasting plasma glucose results between 100 to 125 mg/dL indicate increased risk for diabetes (prediabetes). Fasting plasma glucose results greater than or equal to 126 mg/dL meet the criteria for diagnosis of diabetes. In the absence of unequivocal hyperglycemia, results should be confirmed by repeat testing. In a patient with classic symptoms of hyperglycemia or hyperglycemic crisis, random plasma glucose results greater than or equal to 200 mg/dL meet the criteria for diagnosis of diabetes. Reference: Standards of Medical Care in Diabetes 2016, [place] [employer]. Diabetes Care. 2016.39(Suppl 1). Potassium molar conc 4.5 mmol/L Normal 3.7-5.1 [facility] Protein mass conc 7.3 g/dL Normal 6.3-8.0 [facility] Sodium molar conc 135 mmol/L Low 136-144 [facility] Urea nitrogen mass conc 11 mg/dL Normal 7-21 C [facility] PROGRESSon 04-16-2019 Protein mass conc HNO ID: [id number] Author: Elizabeth Olvera Service: ? Author Type: Physician Type: Progress Notes Filed: 04/19/2019 10:10 AM Note Text: Joyce is s/p laparoscopic cholecystectomy on 04/09/19 She complains of right upper quadrant abdominal pain. Denies fevers. Has decreased appetite. Examination: abdomen is soft and benign. Wounds are well healed, no evidence of infection Impression: s/p laparoscopic cholecystectomy, complaint of abdominal pain Plan: will obtain CBC, LFTs Will call patient with results. If still persists with pain, may consider CT scan. If patient still has pain, to follow up with me next week. Normal [facility] CNOVon 03-26-2019 CNOV Office Visit (GENSWS ) JOYCE AMIN ([id number]) 1970 F Date Time Provider Department 03/26/19 3:00 PM ELIZABETH OLVERA During your visit today, we recorded the following information about you: Pulse Blood pressure Weight 76/minute 126/78 144.1 kg Elizabeth Olvera MD 03/27/2019 7:26 PM Signed Joyce Amin 1970 REFERRING PHYSICIAN: Self CHIEF COMPLAINT: Consult HPI: The patient is a 48 year old female presents with cholelithiasis. Had right upper quadrant abdominal pain for 2 weeks prior to presentation. She was evaluated at [facility] ED on 03/24/19 for presentation of right upper quadrant abdominal pain, nausea and vomiting. A gallbladder US was done which revealed cholelithiasis, no pericholecystic fluid and no wall thickening noted. Denies fevers. Has had decreased appetite due to patient. Denies biliary obstructive signs such as icterus or jaundice. No family history of gallbladder disease known. PAST MEDICAL HISTORY Diagnosis Date - Diabetes (HCC) type II - Hypothyroid - Skin cancer (melanoma) (HCC) right arm PAST SURGICAL HISTORY Procedure Laterality Date - PAST SURGICAL HISTORY OF Right 2009 excision melanoma right arm - PAST SURGICAL HISTORY OF Right 2004 club foot repair Uterine ablation Current Outpatient Medications: metFORMIN (GLUCOPHAGE) 1,000 mg tablet Take 1,000 mg by mouth twice daily with meals. levothyroxine (SYNTHROID) 75 mcg tablet Take 75 mcg by mouth daily before breakfast. HYDROcodone-acetaminop hen (NORCO) 5-325 mg per tablet Take 1 tablet by mouth every 6 hours as needed. ondansetron orally disintegrating (ZOFRAN ODT) 4 mg disintegrating tablet Take 4 mg by mouth as needed. ALLERGIES: Powderhorn; Latex, Natural Rubber; Nickel PERSONAL HISTORY: Social History Socioeconomic History Marital status: Unknown Spouse name: Not on file Number of children: Not on file Years of education: Not on file Highest education level: Not on file Social Needs Financial resource strain: Not on file Food insecurity - worry: Not on file Food insecurity - inability: Not on file Transportation needs - medical: Not on file Transportation needs - non-medical: Not on file Occupational History Not on file Tobacco Use Smoking status: Smoker, Current Status Unknown Packs/day: 1.00 Types: Cigarettes Smokeless tobacco: Never Used Substance and Sexual Activity Alcohol use: Yes Comment: rarely Drug use: Never Sexual activity: Not on file Other Topics Concerns: Not on file Social History Narrative Not on file FAMILY HISTORY Problem Relation Age of Onset - Colon Cancer Mother - Heart Father - Diabetes Father - Diabetes Paternal Grandmother REVIEW OF SYSTEMS: General - denies fevers Cardiovascular - denies chest pain Pulmonary - denies shortness of breath, denies coughing up blood Gastrointestinal - see HPI, denies blood in stool, denies hematemesis Neurological - has headaches with this abdominal pain, denies seizures Genitourinary - denies burning with urination, denies blood in urine, denies history of kidney stones Hematological - denies spontaneous/prolonged bleeding Skin - had skin cancer of right arm Musculoskeletal - had right foot surgery 2004 Endocrine - has diabetes, has hypothyroidism Psychological ? denies hallucinations PHYSICAL EXAMINATION: General: The patient is 48 year old female, well nourished, well hydrated in no acute distress. The patient is oriented to time, place, and person. VITALS: Blood pressure 126/78, pulse 76, weight (!) 144.1 kg (317 lb 9.6 oz). BMI>40 Ht: 5'8 Head ? Normocephalic. EOM intact with sclera clear and no icterus noted. Mouth with mucus membranes moist. Neck - supple with no jugular venous distention noted. Trachea is midline. Lungs ? clear to auscultation. Normal breath sounds. No rales/rhonchi/wheezing noted. No labored breathing noted, such as retractions. No cough heard. Heart ? normal S1 and S2 auscultated. No rubs/clicks/murmurs noted. Regular rate. Abdomen ? soft and benign and obese, tender in right upper quadrant but no peritoneal signs. Normal bowel sounds. Difficult to determine if any masses or organomegaly due to body habitus. Extremities ? no calf tenderness noted. No pitting edema noted. Skin ? normal skin integrity. Neurological ? gait normal, no focal deficits noted. Psych ? calm and appropriate RADIOLOGIC STUDIES: As Noted Assessment IMPRESSION: right upper quadrant abdominal pain, cholelithiasis PLAN: I have discussed the above with the patient and her friend who is present with her I have offered laparoscopic cholecystectomy, possible cholangiograms I have explained the procedure to the patient. I have counseled the patient as to the risks of the procedure, including but not limited to: infection, bleeding, injury to any blood vessels/nerves, scar tissue, injury to any intrabdominal organs, injury to bowel/bladder, injury to the common bile duct/biliary tree, bile leakage, intraabdominal abscess/bleeding, hernias at incisional sites, wound infections, possible open procedure given patient's body habitus, complications of anesthesia, etc. ? the patient understands. The patient wishes to proceed. I have answered all questions to the patient?s satisfaction and the patient has no further questions. . Diagnoses: (R10.11) Right upper quadrant abdominal pain (primary encounter diagnosis) (K80.20) Calculus of gallbladder without cholecystitis without obstruction (E66.01) Morbid obesity (HCC) (Z72.0) Tobacco use Return to Clinic: The patient is instructed to follow-up with me after the procedure I have confirmed and edited as necessary, the PFSH and ROS obtained by others. Elizabeth Olvera MD Referring Provider: SELF [200] Allergies As of Date: 03/26/2019 Noted Allergy Reaction COBALT 03/26/2019 2 - Rash 9 - Itching LATEX, NATURAL RUBBER 03/26/2019 2 - Rash 9 - Itching NICKEL 03/26/2019 2 - Rash 9 - Itching Date Reviewed: 03/26/2019 Reviewed by: Elizabeth Olvera - Fully Assessed Reason for Visit: Consult [173] Primary Visit Diagnosis:Right upper quadrant abdominal pain [R10.11] Other Visit Diagnoses:Calculus of gallbladder without cholecystitis without obstruction [K80.20] Morbid obesity (HCC) [E66.01] Tobacco use [Z72.0] Prescriptions as of 03/26/2019 Sig: METFORMIN 1,000 MG TABLET Take 1,000 mg by mouth twice * LEVOTHYROXINE 75 MCG TABLET Take 75 mcg by mouth daily be* HYDROCODONE 5 MG-ACETAMINOPHE* Take 1 tablet by mouth every * ONDANSETRON 4 MG DISINTEGRATI* Take 4 mg by mouth as needed. Problem List As Of Date: 03/26/2019 (None) Letter Text Encounter Status:Closed by MD ELIZABETH OLVERA on 03/27/19 Normal [facility] PROGRESSon 03-26-2019 Protein mass conc HNO ID: [id number] Author: Elizabeth Olvera Service: ? Author Type: Physician Type: Progress Notes Filed: 03/27/2019 7:26 PM Note Text: Joyce Amin 1970 REFERRING PHYSICIAN: Self CHIEF COMPLAINT: Consult HPI: The patient is a 48 year old female presents with cholelithiasis. Had right upper quadrant abdominal pain for 2 weeks prior to presentation. She was evaluated at [facility] ED on 03/24/19 for presentation of right upper quadrant abdominal pain, nausea and vomiting. A gallbladder US was done which revealed cholelithiasis, no pericholecystic fluid and no wall thickening noted. Denies fevers. Has had decreased appetite due to patient. Denies biliary obstructive signs such as icterus or jaundice. No family history of gallbladder disease known. PAST MEDICAL HISTORY Diagnosis Date - Diabetes (HCC) type II - Hypothyroid - Skin cancer (melanoma) (HCC) right arm PAST SURGICAL HISTORY Procedure Laterality Date - PAST SURGICAL HISTORY OF Right 2009 excision melanoma right arm - PAST SURGICAL HISTORY OF Right 2005 club foot repair Uterine ablation Current Outpatient Medications: metFORMIN (GLUCOPHAGE) 1,000 mg tablet Take 1,000 mg by mouth twice daily with meals. levothyroxine (SYNTHROID) 75 mcg tablet Take 75 mcg by mouth daily before breakfast. HYDROcodone-acetaminop hen (NORCO) 5-325 mg per tablet Take 1 tablet by mouth every 6 hours as needed. ondansetron orally disintegrating (ZOFRAN ODT) 4 mg disintegrating tablet Take 4 mg by mouth as needed. ALLERGIES: Powderhorn; Latex, Natural Rubber; Nickel PERSONAL HISTORY: Social History Socioeconomic History Marital status: Unknown Spouse name: Not on file Number of children: Not on file Years of education: Not on file Highest education level: Not on file Social Needs Financial resource strain: Not on file Food insecurity - worry: Not on file Food insecurity - inability: Not on file Transportation needs - medical: Not on file Transportation needs - non-medical: Not on file Occupational History Not on file Tobacco Use Smoking status: Smoker, Current Status Unknown Packs/day: 1.00 Types: Cigarettes Smokeless tobacco: Never Used Substance and Sexual Activity Alcohol use: Yes Comment: rarely Drug use: Never Sexual activity: Not on file Other Topics Concerns: Not on file Social History Narrative Not on file FAMILY HISTORY Problem Relation Age of Onset - Colon Cancer Mother - Heart Father - Diabetes Father - Diabetes Paternal Grandmother REVIEW OF SYSTEMS: General - denies fevers Cardiovascular - denies chest pain Pulmonary - denies shortness of breath, denies coughing up blood Gastrointestinal - see HPI, denies blood in stool, denies hematemesis Neurological - has headaches with this abdominal pain, denies seizures Genitourinary - denies burning with urination, denies blood in urine, denies history of kidney stones Hematological - denies spontaneous/prolonged bleeding Skin - had skin cancer of right arm Musculoskeletal - had right foot surgery 2004 Endocrine - has diabetes, has hypothyroidism Psychological ? denies hallucinations PHYSICAL EXAMINATION: General: The patient is 48 year old female, well nourished, well hydrated in no acute distress. The patient is oriented to time, place, and person. VITALS: Blood pressure 126/78, pulse 76, weight (!) 144.1 kg (317 lb 9.6 oz). BMI>40 Ht: 5'8 Head ? Normocephalic. EOM intact with sclera clear and no icterus noted. Mouth with mucus membranes moist. Neck - supple with no jugular venous distention noted. Trachea is midline. Lungs ? clear to auscultation. Normal breath sounds. No rales/rhonchi/wheezing noted. No labored breathing noted, such as retractions. No cough heard. Heart ? normal S1 and S2 auscultated. No rubs/clicks/murmurs noted. Regular rate. Abdomen ? soft and benign and obese, tender in right upper quadrant but no peritoneal signs. Normal bowel sounds. Difficult to determine if any masses or organomegaly due to body habitus. Extremities ? no calf tenderness noted. No pitting edema noted. Skin ? normal skin integrity. Neurological ? gait normal, no focal deficits noted. Psych ? calm and appropriate RADIOLOGIC STUDIES: As Noted Assessment IMPRESSION: right upper quadrant abdominal pain, cholelithiasis PLAN: I have discussed the above with the patient and her friend who is present with her I have offered laparoscopic cholecystectomy, possible cholangiograms I have explained the procedure to the patient. I have counseled the patient as to the risks of the procedure, including but not limited to: infection, bleeding, injury to any blood vessels/nerves, scar tissue, injury to any intrabdominal organs, injury to bowel/bladder, injury to the common bile duct/biliary tree, bile leakage, intraabdominal abscess/bleeding, hernias at incisional sites, wound infections, possible open procedure given patient's body habitus, complications of anesthesia, etc. ? the patient understands. The patient wishes to proceed. I have answered all questions to the patient?s satisfaction and the patient has no further questions. . Diagnoses: (R10.11) Right upper quadrant abdominal pain (primary encounter diagnosis) (K80.20) Calculus of gallbladder without cholecystitis without obstruction (E66.01) Morbid obesity (HCC) (Z72.0) Tobacco use Return to Clinic: The patient is instructed to follow-up with me after the procedure I have confirmed and edited as necessary, the PFSH and ROS obtained by others. Elizabeth Olvera MD [facility] Vital Signs Date Time Vital Sign Value Performing Clinician Faci lity 03-19-2025 21:50-0400 Body temperature 98 [degF] [employer] Work Phone: [facility] 03-19-2025 21:50-0400 Diastolic blood pressure 66 mm[Hg] [employer] Work Phone: [facility] 03-19-2025 21:50-0400 Heart rate 99 /min [employer] Work Phone: [facility] 03-19-2025 21:50-0400 Respiratory rate 18 /min [employer] Work Phone: [facility] 03-19-2025 21:50-0400 SaO2% (BldA) [Mass fraction] 99 % [employer] Work Phone: [facility] 03-19-2025 21:50-0400 Systolic blood pressure 102 mm[Hg] [employer] Work Phone: [facility] 03-19-2025 18:14-0400 Body height 172.72 cm [employer] PATRAKLOKC Work Phone: [facility] 03-19-2025 18:14-0400 Body mass index (BMI) [Ratio] 46.3 kg/m2 [employer] PA-C Work Phone: [facility] 03-19-2025 18:14-0400 Body weight 138.1 kg [employer] PA-C Work Phone: [facility] 08-21-2022 11:26-0400 Body height 172.72 cm PA-C [employer] PA Work Phone: [facility] Work Phone: 08-14-2022 08:48-0400 Body height 172.72 cm [facility] Work Phone: 08-14-2022 08:48-0400 Body mass index (BMI) [Ratio] 46 kg/m2 [facility] Work Phone: 08-14-2022 08:48-0400 Body temperature 97 [degF] [facility] Work Phone: 08-14-2022 08:48-0400 Body weight 137.5 kg [facility] Work Phone: 08-14-2022 08:48-0400 Diastolic blood pressure 97 mm[Hg] [facility] Work Phone: 08-14-2022 08:48-0400 Heart rate 88 /min [facility] Work Phone: 08-14-2022 08:48-0400 Respiratory rate 16 /min [facility] Work Phone: 08-14-2022 08:48-0400 SaO2% (BldA) [Mass fraction] 100 % [facility] Work Phone: 08-14-2022 08:48-0400 Systolic blood pressure 163 mm[Hg] [facility] Work Phone: Encounters Encounter Date Encounter Type Care Provider Facility Start: 09-19-2025 End: 09-19-2025 ambulatory VIKTOR SILVA DPM Facility:[facility] Start: 09-19-2025 End: 09-19-2025 Patient encounter procedure VIKTOR SILVA DPM [facility] Start: 07-29-2025 End: 07-29-2025 ambulatory Manas [place] PA-C Work Phone: -Laboratory Start: 07-29-2025 End: 07-29-2025 Patient encounter procedure Vesna Bergman [employer] -Laboratory Work Phone: Start: 07-29-2025 End: 07-29-2025 ambulatory Vesna Bergman Facility:[facility] Start: 04-06-2025 End: 04-06-2025 ambulatory VESNA BERGMAN APRN_CNP Facility:A Start: 04-02-2025 End: 04-02-2025 ambulatory Manas [place] PA-C Work Phone: [facility] Work Phone: Start: 04-02-2025 End: 04-02-2025 Patient encounter procedure Vesna Bergman [employer] -Laboratory Work Phone: Start: 04-02-2025 End: 04-02-2025 ambulatory Vesna Bergman Facility:[facility] Start: 03-19-2025 End: 03-19-2025 Emergency department patient visit Manas [place] PA-C Work Phone: -Emergency Department Work Phone: Start: 02-11-2025 End: 02-11-2025 ambulatory BIANKA HOFFMAN [facility] Start: 01-07-2025 End: 01-07-2025 ambulatory VESNA GRIMMM APRN_CNP Facility:A Start: 08-30-2022 Non-patient / Non-visit PA-C K imberly [place] PA Work Phone: [facility] Start: 08-30-2022 End: 08-30-2022 Patient encounter procedure PETER ESQUEDA Work Phone: [facility]-Cardiovascular Services Start: 08-21-2022 End: 08-21-2022 Patient encounter procedure PETER ESQUEDA Work Phone: [facility] Start: 08-14-2022 End: 08-14-2022 Emergency department patient visit [facility]-Emergency Department Start: 07-06-2022 End: 07-06-2022 ambulatory PETER ESQUEDA Work Phone: [facility] Work Phone: Start: 07-06-2022 End: 07-06-2022 Patient encounter procedure [facility]-Laboratory Start: 05-22-2022 End: 05-22-2022 Patient encounter procedure [facility]-Outpatient Breast Imaging Procedures Date Procedure Procedure Detail Performing Clinician Start: 03-19-2025 CT angiography of ch est with contrast Manas Bullard PA-C Work Phone: Start: 03-19-2025 X-ray of chest, PA a nd lateral views Manas Bullard PA-C Work Phone: Start: 03-19-2025 D-dimer assay, quantitative Manas Bullard PA-C Work Phone: Comment on above: D-Dimer ELEVATED (>0 .49): Additional studies and clinicalassessments are indicated to conclude diagnosis of:Deep Vein Thrombosis (DVT) or Pulmonary Embolism (PE)CRITICAL VALUE CALLED TO ELLEN JAMES03/19/252058 Eleno Frederick.RESULTS READ BACK BY SAME. Start: 03-19-2025 Estimated creatinine clearance Manas ESQUEDA-C Work Phone: Start: 08-30-2022 Cardiovascular stres s test using pharmacologic stress agent PETER ESQUEDA Work Phone: Start: 05-22-2022 Screening mammography Plan of Treatment Date Care Activity Detail Author Start: 03-19-2025 [facility] Start: 03-19-2025 [facility] Patient Education ED Muscle Spasm [facility] Work Phone: Patient referral [facility] Work Phone: Payers Date Payer Category Payer Private Health Insurance [facility] [id number] 2025 Self-pay [id number] 2015 Unknown [id number] 2015 Unknown [id number] 1970 Unknown [id number] 2.16.8 [id number] 1970 Unknown [id number] 2.16.8 [id number] 1970 Unknown [id number] 2.16.8 [id number] 1970 Unknown [id number] 2.16. [id number] Unknown [id number] 2.16.8 [id number] Unknown [id number] 2.16.8 [id number] Unknown [id number] 2.16.8 [id number] Social History Date Type Detail Facility Start: 10-26-2021 End: 08-21-2022 Tobacco smoking status NHIS Unknown if ever smoked [facility] Work Phone: Start: 1970 Sex Assigned At Female [facility] Start: 03-19-2025 Tobacco smoking stat us CAIS Smokes tobacco daily (finding) [facility] Start: 01-07-2025 End: 03-19-2025 Sex Female (finding) [facility] Sex Female [facility] Tobacco smoking status [facility] Medical Equipment Procedure Code Equipment Code Equipment Original Text Equipment Identifier Dates Total cholecystectomy with exploration of common bile duct CLIP,HEMOLOCK MED WECK FDA Start: 04-09-2019 Total cholecystectomy with exploration of common bile duct CLIP,HEMOLOCK MED WECK FDA Start: 04-09-2019 Total cholecystectomy with exploration of common bile duct CLIP,HEMOLOCK MED WECK FDA Start: 04-09-2019 Total cholecystectomy with exploration of common bile duct CLIP,HEMOLOCK MED WECK FDA Start: 04-09-2019 Total cholecystectomy with exploration of common bile duct CLIP,HEMOLOCK MED WECK FDA Start: 04-09-2019 Total cholecystectomy with exploration of common bile duct CLIP,HEMOLOCK MED WECK FDA Start: 04-09-2019 Total cholecystectomy with exploration of common bile duct CLIP,HEMOLOCK MED WECK FDA Start: 04-09-2019 Total cholecystectomy with exploration of common bile duct CLIP,HEMOLOCK MED WECK FDA Start: 04-09-2019 Total cholecystectomy with exploration of common bile duct CLIP,HEMOLOCK MED WECK FDA Start: 04-09-2019 Total cholecystectomy with exploration of common bile duct CLIP,HEMOLOCK MED WECK FDA Start: 04-09-2019 Total cholecystectomy with exploration of common bile duct CLIP,HEMOLOCK MED WECK FDA Start: 04-09-2019 Total cholecystectomy with exploration of common bile duct CLIP,HEMOLOCK MED WECK FDA Start: 04-09-2019 Mental Status Date Assessment Result Facility 03-19-2025 Cognitive function Voice/Name [facility] Work Phone: 08-14-2022 Cognitive function Level Of Cons ciousness Awake;Alert;Appropriate;Follow s Commands [facility] Work Phone: Clinical Notes 01-07-2025 to 09-19-2025 Note Date & Type Note Facility 09-19-2025 Note Exam Date Time Procedure Performing Provider Status 09/19/25 8:15 AM MRI Foot w/o Contrast Left FELIX, AT [facility]; Auth (Verified) [id number] ORIGINAL EXAMINATION: MRI OF THE LEFT FOOT WITHOUT CONTRAST, 09/19/2025 8:30 am TECHNIQUE: Multiplanar multisequence MRI of the left foot was performed without the administration of intravenous contrast. 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 The hallux sesamoids appear intact. There is no proximal migration of the sesamoids. There is no joint effusion or synovitis. Moderate 1st MTP degenerative change with chondral thinning, subchondral cyst in the 1st metatarsal head. Intraosseous ganglion versus subchondral cysts within the navicular. Type 1 accessory navicularis. The plantar plates of the metatarsophalangeal joints appear intact. Trivial 1st and 3rd intermetatarsal bursitis. There is no Garnica's neuroma. The intrinsic musculature of the foot appears intact. Selective fatty atrophy of the abductor digiti minimi muscle belly. Mild thickening of the plantar fascia involving the proximal portions of the central cord partially visualized. Lisfranc's ligament appears intact. The flexor tendons appear intact. The extensor tendons appear intact. There is no soft tissue edema. There is no evidence of a solid or cystic soft tissue mass. IMPRESSION: 1. Thickening of the plantar fascia involving the proximal portions of the central cord partially visualized, findings may be seen in the setting of plantar fasciitis. 2. 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 3. Moderate 1st MTP degenerative change. 4. Trivial 1st intermetatarsal bursitis. Interpreted by: Gisella Felix Preliminary Report By: Gisella Felix Electronically signed By Gisella Felix Dictated Date: 09/19/2025 9:58:58 AM Prelim Date: 09/19/2025 10:11:14 AM Sign Date: 09/19/2025 10:11:14 AM Ordering Provider: VIKTOR SILVA RP [facility]04-26-2025 Discharge summary [facility] Medical Records Department [address] [place] [id number] Emergency Department Summary 03/19/25 MR#: [id number] Acct: [id number] Name: JOYCE AMIN Rep #:[id number] : 1970 54 From: Jose J Claudio DO PCP: Manas Bullard PA-C Status:REG E R Location: ED HPI History of Present Illness Chief Complaint: Chest Pain Narrative Narrative: Patient is a 54-year-old female with past medical history of GERD, tobacco use, type 2 diabetes, hypothyroidism who presents to the emergency department with chief complaint of chest pain. Patient states that her chest pain started a couple hours ago while cleaning. She states that the pain has slowly gotten worse prompting her to call EMS to be brought here for further evaluation management. Patient states that she was given aspirin and nitro en route and states that the nitro did not help herchest pain. States that it is a stabbingpain. And does not radiating where stays on the left side of chest. Patient denies any nausea associate with this denies any back pain. Patient denies recent travel history denies any history of blood clots. States that her pain is worse with deep inspiration. [facility] Medical History Tobacco abuse GERD (gastroesophageal reflux disease) Hyperlipidemia Morbid obesity Type 2 diabetes mellitus Hypothyroidism Home Medications ?Medication ?Instructions ?Recorded ?Last Taken ?Type levothyroxine 75 mcg tablet 75 mg PO DAILY 03/24/19 History metformin 1,000 mg tablet 1,000 mg PO BID 03/24/19 History rosuvastatin 10 mg tablet 10 mg PO DAILY 08/20/22 Unkn own History cyclobenzaprine 5 mg tablet 5 mg PO TID PRN muscle spa sm #20 03/19/25 Unknown Rx tabs dulaglutide 4.5 mg/0.5 mL 4.5 mg subcut QWEEK 03/19/25 Unknown History subcutaneous pen injector (Trulicity) lidocaine 5 % topical patch 1 patch topical DAILY PRN pain #15 03/19/25 Unknown Rx ea Allergy/AdvReac Type Severity Reaction Status Date / Time adhesive tape Allergy Rash Verified 03/19/25 18:18 cobalt Allergy Anaphylaxis Verified 03/19/25 18:18 Latex, Natural Rubber Allergy Rash Verified 03/19/25 18:18 nickel Allergy Rash Verified 03/19/25 18:18 Surgical History History of cholecystectomy Social History Smoking Status: Current every day smoker tobacco type: cigarettes ROS ROS ED ROS Narrative Constitutional: Denies any fevers, chills, headache Cardiovascular: Complains of left-sided chest pain as noted above denies any palpitations Respiratory: Denies coughing wheezing shortness of breath Abdomen: Denies abdominal pain nausea vomit diarrhea : Denies urinary symptoms Neurological: Denies numbness, weakness, tingling Musculoskeletal: Denies back pain Skin: Denies rashes or lesions EXAM Physical Exam Narrative Exam Narrative: General: Patient lying in bed rest comfortably did not appear to be in acute distress Head: Atraumatic, normocephalic Eyes: PERRL bilaterally, EOMI bilaterally, no conjunctival injection noted Neck: Soft, supple, trachea midline Cardiovascular: Regular rate and rhythm no murmurs gallops rubs noted Respiratory: Clear to auscultation bilaterally Abdomen: Soft, nondistended, nontender to palpation Extremities: Radial pulses +2/4 in the bilateral upper extremities, +5/5 strength noted in the bilateral upper and lower extremities, no pedal edema on exam Neurological: Patient following commands knew that she was at [facility] there is 2024 Skin: Warm, dry, intact no rashes lesions noted Const Vital Signs: 03/19/25 18:14 03/19/25 18:20 03/19/25 18:26 Temperature 98.3 F Temperature Source Oral Pulse Rate 100 Respiratory Rate 22 H Respiratory Effort Normal Blood Pressure 139/72 H Blood Pressure Mean 94 Pulse Ox 100 98 Oxygen Delivery Method Room Air Room Air 03/19/25 19:00 03/19/25 20:00 03/19/25 21:00 Temperature Temperature Source Pulse Rate 94 72 75 Respiratory Rate 18 16 18 Respiratory Effort Blood Pressure 122/64 H 120/61 124/66 H Blood Pressure Mean 83 80 85 Pulse Ox 98 100 100 Oxygen Delivery Method Room Air Room Air Room Air MDM MDM MDM Narrative Medical decision making narrative: patient is a 54-year-old female who presents to the emergency department the chief complaint of left-sided chest pain. On the differential diagnose includesbut not limited to ACS, pneumothorax, musculoskeletal strain. Once workup is obtained reviewed she will be reevaluated. As noted earlier patient received nitroglycerin and aspirin in route via EMS and the nitroglycerin did not help her pain. Patient was given morphine Zofran. Patient's CBC reviewed showed no evidence leukocytosis white blood count normal at 10.7, hemoglobinis 11.5, platelet count was 252. Patient's sodium was 135, potassium normal 3.9, creatinine normal at 0.84. Patient's glucose was noted sneha 253, troponin was 15 with a delta troponin obtained 8. Patient's EKG reviewed and showed sinus rhythm with a rate of 97 beats per minutes this was compared toprevious EKG from April 09, 2019 which was largely unchanged. Patientchest x-ray was reviewed and showed no acute cardiopulmonary processes. Reevaluated the patient she is still having pain with deep inspiration her pain is still constant and she will be given Toradol. D-dimer will be added on. Patient D-dimer was elevated therefore CT angiography chest was added on which showed no acute findings no evidence of pulmonary embolism. HEART Score for Major Cardiac Events from [facility] on 03/19/2025 All calculations should be rechecked by clinician prior to use RESULT SUMMARY: 2 points Low Score (0-3 points) Risk of MACE of 0.9-1.7%. INPUTS: History ?> 0 = Slightly suspicious EKG ?> 0 = Normal Age ?> 1 = 45-64 Risk factors ?> 1 = 1-2 risk factors Initial troponin ?> 0 = <=ormal limit On reevaluation patient she is feeling better she would like to go home at this point in time. I have low suspicion for cardiac etiology at this point in time as nitroglycerin did not help her pain and her pain has been constant and believe that this is likely secondary to her cleaning earlier. Shewas advised to rotate Tylenol and ibuprofen [id number]. She will be given prescriptions for Lidoderm patch as well as muscle relaxer. She was encouraged to follow with her primary care physician in the outpatient setting and return with worsening symptoms or concerns. She is agreeable to torres well as for members at bedside all question concerns answered she was discharged home in stable condition. Lab Data Labs: Laboratory Results - last 24 hr 03/19/25 03/19/25 17:50 19:55 WBC 10.7 RBC 3.92 L Hgb 11.5 L Hct 35.0 L MCV 89.3 MCH 29.3 MCHC 32.9 RDW Std Deviation 45.1 H RDW Coeff of Michelle 13.9 Plt Count 252 MPV 10.4 Immature Gran % (Auto) 0.500 Neut % (Auto) 72.4 H Lymph % (Auto) 19.6 [place] % (Auto) 5.1 Eos % (Auto) 1.9 Baso % (Auto) 0.5 Absolute Neuts (auto) 7.8 H Absolute Lymphs (auto) 2.09 Nucleated RBC % 0 D-Dimer Quant (PE/DVT) 2.50 H* Sodium 135 Potassium 3.9 Chloride 98 Carbon Dioxide 21.1 Anion Gap 16 H BUN 12 Creatinine 0.84 Estim Creat Clear Calc 114.42 Est GFR (MDRD) Non-Af 83 BUN/Creatinine Ratio 13.9 Glucose 253 H Calcium 9.3 Troponin T High Sens 15 H Troponin T Hi Sens 2 Hr 8 Radiography Diagnostic Testing: Clinical Impression(s) from Imaging Studies Chest X-Ray 03/19/25 18:40 IMPRESSION: NO ACUTE FINDINGS. Reading Location: [facility] Chest CTA 03/19/25 21:00 IMPRESSION: NORMAL CHEST CTA. NO EVIDENCE OF ACUTE PULMONARY EMBOLISM. Reading Location: [facility] Discharge Plan Triage Chief Complaint: Chest Pain ED Provider: Jose J Claudio Dx/Rx/DC Orders Clinical Impression: Musculoskeletal strain, Chest pain Prescriptions: New lidocaine 5 % adhesive patch,medicated 1 patch topical DAILY PRN (Reason: pain) Qty: 15 0RF Rx Instructions: leave on most painful area for up to 12 hrs cyclobenzaprine 5 mg tablet 5 mg PO TID PRN (Reason: muscle spasm) Qty: 20 0RF No Action rosuvastatin 10 mg tablet 10 mg PO DAILY levothyroxine 75 MCG tablet 75 mg PO DAILY metformin 1,000 MG tablet 1,000 mg PO BID Trulicity 4.5 mg/0.5 mL pen injector 4.5 mg subcut QWEEK Rx Instructions: every friday Primary Care Provider: Manas Bullard Referrals: Manas Bullard PA-C [Primary Care Provider] - Activity Restrictions/Additional Instructions: Use prescriptions as prescribed. Return with worsening symptoms or other concerns. Your CT scan of your chest was normal as well as the x-ray of your chest. Follow-up your primary care physician outpatient setting. Print Language: Macedonian Disposition Disposition: Home, Self Care What to do if you have Problems For any increased pain, shortness of breath, bleeding, nausea or vomiting, chestpain, or any unexpected problems, contact your Primary Care Provider. Call [facility] ([phone]) or report tothe closest Emergency Room. Call 911 if necessary. 03/19/252155 Cosigner Signature (if applicable): CC: PETER Bullard ~ Signed [facility]04-26-2025 Radiology Diagnostic study note [facility] Imaging Services [address] [place] [address] CTA Chest W/WO Contrast MR#: [id number] Acct: [id number] Name: MCKINLEY AMINSA Strange Rep #: [id number] : 1970 F 54 From: Roel Nicolas MD PCP: Manas Bullard PA-C Status: REG E R Study:CTA Chest W/WO Contrast Date of Exam: 03/19/25 Exam# [id number] Ordering Dr: Rufus Claudio DO PROCEDURE: CTA CHEST W/WO CONTRAST 03/19/2025 REASON FOR EXAM: PAIN WITH DEEP INSPIRATION TECHNIQUE: CTA axial imaging of the chest with intravenous contrast. Multiplanar and multisequence images wereobtained. 3D, 3D post processing, 3D reconstructions, Maximum intensity projection (MIPs) Volume rendering and Shaded surface rendering was provided. PATIENT PREPARATION: Per protocol One or more dose reduction techniques were used (e.g., Automated exposure control, adjustment of the mA and/or kV according to patient size, use of iterative reconstruction technique). COMPARISON: Chest x-ray earlier today FINDINGS: Hardware: None Lymph nodes: Unremarkable Heart: No cardiomegaly. Thoracic Aorta: No thoracic aortic aneurysm or dissection. Pulmonary Vessels: No large central pulmonary emboli are identified. Contrast timing is suboptimal for evaluation of more distal branches. Most Proximal Level of Embolus (if embolus present): Lungs and Airways: The lungs are normally expanded and clear. Pleura: No pleural effusion. No pneumothorax. Upper Abdomen: Visualized portions of the upper abdominal viscera are unremarkable. Bones: Bone windows are unremarkable. CT/CTA Chest W/WO Contrast IMPRESSION: NORMAL CHEST CTA. NO EVIDENCE OF ACUTE PULMONARY EMBOLISM. Reading Location: [id number] CC: PETER Bullard; Dr. Jose J Claudio DO ~ Thermostat Repairer: Signed [facility]04-26-2025 Radiology Diagnostic study note [facility] Imaging Services [address] [place] [address] Chest PA and Lateral MR#: [id number] Acct: [id number] Name: MCKINLEY AMIN R Rep #: [id number] : 1970 F 54 From: Roel Nicolas MD PCP: Manas Bullard PA-C Status: REG E R Study:Chest PA and Lateral Date of Exam: 03/19/25 Exam# [id number] Ordering Dr: Rufus Claudio DO PROCEDURE: CHEST PA AND LATERAL 03/19/2025 REASON FOR EXAM: CHEST PAIN TECHNIQUE: Frontal and lateral views of the chest. FINDINGS: Hardware: None Heart: The heart size is normal. Mediastinum: The mediastinal contour is unremarkable. Lungs: The lungs are clear. Bones: The bones are unremarkable. RAD/Chest PA and Lateral IMPRESSION: NO ACUTE FINDINGS. Reading Location: [facility] CC: PETER Bullard; Dr. Jose J Claudio DO ~ Thermostat Repairer: Signed [facility]04-26-2025 Discharge summary Author Jose J Claudio [facility] Note Date/Time March 19, 2025 9:5 6pm [facility] Medical Records Department [address] [place] [address] Emergency Department Summary 03/19/25 MR#: [id number] Acct: [id number] Name: AMINJOYCE Strange Rep #:[id number] : 1970 54 From: Jose J Claudio DO PCP: Manas Bullard PA-C Status:REG E R Location: ED HPI History of Present Illness Chief Complaint: Chest Pain Narrative Narrative: Patient is a 54-year-old female with past medical history of GERD, tobacco use, type 2 diabetes, hypothyroidism who presents to the emergency department with chief complaint of chest pain. Patient states that her chest pain started a couple hours ago while cleaning. She states that the pain has slowly gotten worse prompting her to call EMS to be brought here for further evaluation management. Patient states that she was given aspirin and nitro en route and states that the nitro did not help her chest pain. States that it is a stabbingpain. And does not radiating where stays on the left side of chest. Patient denies any nausea associate with this denies any back pain. Patient denies recent travel history denies any history of blood clots. States that her pain is worse with deep inspiration. [facility] Medical History Tobacco abuse GERD (gastroesophageal reflux disease) Hyperlipidemia Morbid obesity Type 2 diabetes mellitus Hypothyroidism Home Medications ?Medication ?Instructions ?Recorded ?Last Taken ?Type levothyroxine 75 mcg tablet 75 mg PO DAILY 03/24/19 History metformin 1,000 mg tablet 1,000 mg PO BID 03/24/19 History rosuvastatin 10 mg tablet 10 mg PO DAILY 08/20/22 Unkn own History cyclobenzaprine 5 mg tablet 5 mg PO TID PRN muscle spa sm #20 03/19/25 Unknown Rx tabs dulaglutide 4.5 mg/0.5 mL 4.5 mg subcut QWEEK 03/19/25 Unknown History subcutaneous pen injector (Trulicity) lidocaine 5 % topical patch 1 patch topical DAILY PRN pain #15 03/19/25 Unknown Rx ea Allergy/AdvReac Type Severity Reaction Status Date / Time adhesive tape Allergy Rash Verified 03/19/25 18:18 cobalt Allergy Anaphylaxis Verified 03/19/25 18:18 Latex, Natural Rubber Allergy Rash Verified 03/19/25 18:18 nickel Allergy Rash Verified 03/19/25 18:18 Surgical History History of cholecystectomy Social History Smoking Status: Current every day smoker tobacco type: cigarettes ROS ROS ED ROS Narrative Constitutional: Denies any fevers, chills, headache Cardiovascular: Complains of left-sided chest pain as noted above denies any palpitations Respiratory: Denies coughing wheezing shortness of breath Abdomen: Denies abdominal pain nausea vomit diarrhea : Denies urinary symptoms Neurological: Denies numbness, weakness, tingling Musculoskeletal: Denies back pain Skin: Denies rashes or lesions EXAM Physical Exam Narrative Exam Narrative: General: Patient lying in bed rest comfortably did not appear to be in acute distress Head: Atraumatic, normocephalic Eyes: PERRL bilaterally, EOMI bilaterally, no conjunctival injection noted Neck: Soft, supple, trachea midline Cardiovascular: Regular rate and rhythm no murmurs gallops rubs noted Respiratory: Clear to auscultation bilaterally Abdomen: Soft, nondistended, nontender to palpation Extremities: Radial pulses +2/4 in the bilateral upper extremities, +5/5 strength noted in the bilateral upper and lower extremities, no pedal edema on exam Neurological: Patient following commands knew that she was at [facility] there is 2024 Skin: Warm, dry, intact no rashes lesions noted Const Vital Signs: 03/19/25 18:14 03/19/25 18:20 03/19/25 18:26 Temperature 98.3 F Temperature Source Oral Pulse Rate 100 Respiratory Rate 22 H Respiratory Effort Normal Blood Pressure 139/72 H Blood Pressure Mean 94 Pulse Ox 100 98 Oxygen Delivery Method Room Air Room Air 03/19/25 19:00 03/19/25 20:00 03/19/25 21:00 Temperature Temperature Source Pulse Rate 94 72 75 Respiratory Rate 18 16 18 Respiratory Effort Blood Pressure 122/64 H 120/61 124/66 H Blood Pressure Mean 83 80 85 Pulse Ox 98 100 100 Oxygen Delivery Method Room Air Room Air Room Air MDM MDM MDM Narrative Medical decision making narrative: patient is a 54-year-old female who presents to the emergency department the chief complaint of left-sided chest pain. On the differential diagnose includesbut not limited to ACS, pneumothorax, musculoskeletal strain. Once workup is obtained reviewed she will be reevaluated. As noted earlier patient received nitroglycerin and aspirin in route via EMS and the nitroglycerin did not help her pain. Patient was given morphine Zofran. Patient's CBC reviewed showed no evidence leukocytosis white blood count normal at 10.7, hemoglobin is 11.5, platelet count was 252. Patient's sodium was 135, potassium normal 3.9, creatinine normal at 0.84. Patient's glucose was noted sneha 253, troponin was 15 with a delta troponin obtained 8. Patient's EKG reviewed and showed sinus rhythm with a rate of 97 beats per minutes this was compared to previous EKG from April 09, 2019 which was largely unchanged. Patientchest x-ray was reviewed and showed no acute cardiopulmonary processes. Reevaluated the patient she is still having pain with deep inspiration her pain is still constant and she will be given Toradol. D-dimer will be added on. Patient D-dimer was elevated therefore CT angiography chest was added on which showed no acute findings no evidence of pulmonary embolism. HEART Score for Major Cardiac Events from [facility] on 03/19/2025 All calculations should be rechecked by clinician prior to use RESULT SUMMARY: 2 points Low Score (0-3 points) Risk of MACE of 0.9-1.7%. INPUTS: History ?> 0 = Slightly suspicious EKG ?> 0 = Normal Age ?> 1 = 45-64 Risk factors ?> 1 = 1-2 risk factors Initial troponin ?> 0 = <=ormal limit On reevaluation patient she is feeling better she would like to go home at this point in time. I have low suspicion for cardiac etiology at this point in time as nitroglycerin did not help her pain and her pain has been constant and believe that this is likely secondary to her cleaning earlier. She was advised to rotate Tylenol and ibuprofen [id number]. She will be given prescriptions for Lidoderm patch as well as muscle relaxer. She was encouraged to follow with her primary care physician in the outpatient setting and return with worsening symptoms or concerns. She is agreeable to plan as well as for members at bedside all question concerns answered she was discharged home in stable condition. Lab Data Labs: Laboratory Results - last 24 hr 03/19/25 03/19/25 17:50 19:55 WBC 10.7 RBC 3.92 L Hgb 11.5 L Hct 35.0 L MCV 89.3 MCH 29.3 MCHC 32.9 RDW Std Deviation 45.1 H RDW Coeff of Michelle 13.9 Plt Count 252 MPV 10.4 Immature Gran % (Auto) 0.500 Neut % (Auto) 72.4 H Lymph % (Auto) 19.6 [place] % (Auto) 5.1 Eos % (Auto) 1.9 Baso % (Auto) 0.5 Absolute Neuts (auto) 7.8 H Absolute Lymphs (auto) 2.09 Nucleated RBC % 0 D-Dimer Quant (PE/DVT) 2.50 H* Sodium 135 Potassium 3.9 Chloride 98 Carbon Dioxide 21.1 Anion Gap 16 H BUN 12 Creatinine 0.84 Estim Creat Clear Calc 114.42 Est GFR (MDRD) Non-Af 83 BUN/Creatinine Ratio 13.9 Glucose 253 H Calcium 9.3 Troponin T High Sens 15 H Troponin T Hi Sens 2 Hr 8 Radiography Diagnostic Testing: Clinical Impression(s) from Imaging Studies Chest X-Ray 03/19/25 18:40 IMPRESSION: NO ACUTE FINDINGS. Reading Location: [facility] Chest CTA 03/19/25 21:00 IMPRESSION: NORMAL CHEST CTA. NO EVIDENCE OF ACUTE PULMONARY EMBOLISM. Reading Location: [facility] Discharge Plan Triage Chief Complaint: Chest Pain ED Provider: Jose J Claudio Dx/Rx/DC Orders Clinical Impression: Musculoskeletal strain, Chest pain Prescriptions: New lidocaine 5 % adhesive patch,medicated 1 patch topical DAILY PRN (Reason: pain) Qty: 15 0RF Rx Instructions: leave on most painful area for up to 12 hrs cyclobenzaprine 5 mg tablet 5 mg PO TID PRN (Reason: muscle spasm) Qty: 20 0RF No Action rosuvastatin 10 mg tablet 10 mg PO DAILY levothyroxine 75 MCG tablet 75 mg PO DAILY metformin 1,000 MG tablet 1,000 mg PO BID Trulicity 4.5 mg/0.5 mL pen injector 4.5 mg subcut QWEEK Rx Instructions: every friday Primary Care Provider: Manas Bullard Referrals: Manas Bullard PA-C [Primary Care Provider] - Activity Restrictions/Additional Instructions: Use prescriptions as prescribed. Return with worsening symptoms or other concerns. Your CT scan of your chest was normal as well as the x-ray of your chest. Follow-up your primary care physician outpatient setting. Print Language: Macedonian Disposition Disposition: Home, Self Care What to do if you have Problems For any increased pain, shortness of breath, bleeding, nausea or vomiting, chestpain, or any unexpected problems, contact your Primary Care Provider. Call [facility] ([phone]) or report to the closest Emergency Room. Call 911 if necessary. 03/19/252155 <Electronically signed by Jose J Claudio DO> Cosigner Signature (if applicable): CC: PETER Bullard ~ Signed [facility] Work Phone: [phone] 972-710202-14-2025 Evaluation + Plan note Future Scheduled Tests Laboratory* ALT / SGPT 01/07/25 [facility] Evaluation noteNo assessment information available [facility] Work Phone: Evaluation note* Diagnosis Onset Date Resolution Status Chest pain acute [facility] Work Phone: Hospital course Narrative No data available for this section [facility] Hospital Discharge instructions Additional Instructions Exam and history are consistent with your back pain being caused by muscle spasm. Aleve for pain and inflammation. Tylenol also for pain. Hot shower, warm bath and massage. Skelaxin which is a muscle relaxant 3 times a day for a week. May stop early if the pain goes away.[facility] Work Phone: Hospital Discharge instructions Additional Instructions Use prescriptions as prescribed. Return with worsening symptoms or other concerns. Your CT scan of your chest was normal as well as the x-ray of your chest. Follow-up your primary care physician outpatient setting.[facility] Work Phone: Hospital Discharge instructions No data available for this section [facility] Progress note No data available for this section [facility] Reason for referral (narrative)No reason for referral information availableWToledo [facility] Work Phone: Summary Purpose Family History No Family History Records FoundNo Family History Records FoundNo Family History Records FoundNo Family History Records Found No data available for this section No Family History Records Found Advance Directives No Advanced Directives Records Found Advance Directive Response Recorded Date/ Time Living Will No October 26 3:42pm Power of [employer]order [employer] No October 26, 2021 3:42pm Advance Directive Response Recorded Date/ Time Living Will No August 14, 2022 8:49am Power of [employer] No July 8:49am Advance Directive Response Recorded Date/ Time Living Will No August 14, 2022 7:49am Power of [employer] No July 7:49am Advance Directive Response Recorded Date/ Time Do you have a Healthcare Power of [employer]? No March 19, 2025 6:17pm Chief Complaint and Reason for Visit Chief Complaint SCREENING Chief Complaint SCREENING HYPOTHYROIDISM left flank pain Chief Complaint HYPOTHYROIDISM left flank pain UTD EKG/ abnormal CP CHEST PAIN Reason for Visit Chest pain Chief Complaint Admit Date chest pain March 19, 2025 6:1 3pm Additional Source Comments INFORMATION SOURCE (unrecogn ized section and content) DATE CREATED AUTHOR 04/27/2019 [facility] DATE CREATED AUTHOR AUTHOR'S ORGANIZ ATION 02/13/2025 [facility] DATE CREATED AUTHOR AUTHOR'S ORGANIZ ATION 04/12/2025 [facility] DATE CREATED AUTHOR AUTHOR'S ORGANIZ ATION 08/14/2025 [facility] DATE CREATED AUTHOR AUTHOR'S ORGANIZ ATION 09/22/2025 [facility] Goals (unrecognized section and content) Goals may be documented in a n alternate sectionGoals may be documented in an alternate sectionGoals may be documented in an alternate sectionGoals may be documented in an alternate sectionGoals may be documented in an alternate sectionGoals may be documented in an alternate section No data available for this section Care Teams (unrecognized sec tion and content) Team Status: Active Member Role Status Dates Manas ESQUEDA PA-C Primary Care Provider Active Team Status: Inactive Member Role Status Dates Manas ESQUEDA PA-C Primary Care Provider Active Start: March 19, 2025 End: March 19, 2025 Dr. Jose J Claudio , DO Emergency Provider Active Start: March 19, 2025 End: March 19, 2025 Team Status: Inactive Member Role Status Dates Manas ESQUEDA PA-C Primary Care Provider Active Start: March 19, 2025 End: March 19, 2025 Dr. Jose J Claudio , Attending Provider Active Start: March 19, 2025 End: March 19, 2025 Dr. Jose J Claudio , Emergency Provider Active Start: March 19, 2025 End: March 19, 2025 Team Status: Inactive Member Role Status Dates Manas ESQUEDA PA-C Primary Care Provider Active Start: April 02, 2025 End: April 02, 2025 Vesna Bergman NP-[place] Attending Provider Active S tart: April 02, 2025 End: April 02, 2025 Vesna Bergman NP-[place] Referring Provider Active S tart: April 02, 2025 End: April 02, 2025 Team Status: Active Member Role/Relationship Status Dates Manas ESQUEDA PA-C Primary care physician Active Team Status: Inactive Member Role/Relationship Status Dates Manas ESQUEDA PA-C Primary care physician Active Start: July 29, 2025 End: July 29, 2025 RODRICK Granger Attending physician Active Start: July 29, 2025 End: July 29, 2025 Vesna Bergman NP-[place] Referring Provider Active S tart: July 29, 2025 End: July 29, 2025 FOR RECORDS PERTAINING TO PATIENTS WHO ARE OR HAVE BEEN ENROLLED IN A CHEMICAL DEPENDENCY/SUBSTANCEABUSE PROGRAM, SOME INFORMATION MAY BE OMITTED. This clinical summary was aggregated from multiple sources. Caution should be exercised in using it in the provision of clinical care. This summary normalizes information from multiple sources, and as a consequence, information in this document may materially change the coding, format and clinical context of patient data. In addition, data may be omitted in some cases. CLINICAL DECISIONS SHOULD BE BASED ON THE PRIMARY CLINICAL RECORDS. [employer] [facility]. provides no warranty or guarantee of the accuracy or completeness of information in this document.
[2025-10-29 09:10] LABS: AST(SGOT) 21 U/L (<=31); Alanine Aminotransfer ALT/SGPT 17 U/L (<=34); Anion Gap 11 (5-15); BUN 12 mg/dL (4-19); BUN/Creat Ratio 14.6 RATIO (10-20); Calcium,Total 9.6 mg/dL (7.6-11.0); Carbon Dioxide 26.4 mmol/L (21.0-32.0); Chloride 102 mmol/L (98-108); Cholesterol 112 mg/dL (<=200); Glucose 139 mg/dL (70-99); Low Density Lipoprotein Calc. 47 mg/dL; Potassium 4.4 mmol/L (3.3-5.1); Triglycerides 107 mg/dL; Very Low Density Lipoprotein 21 mg/dL (5-40); cholesterol:hdl ratio screen 2.48
== END | disposition home or self-care (01) ==
LOC: LAB 07:33
PROVIDERS: PCP Family Medicine; Referring Provider Internal Medicine Endocrinology, Diabetes & Metabolism; Visit Provider Internal Medicine Endocrinology, Diabetes & Metabolism
DX: E11.65 Type 2 diabetes mellitus with hyperglycemia (principal); E78.2 Mixed hyperlipidemia; E03.9 Hypothyroidism, unspecified
CPT/HCPCS: 36415; 80048; 80061; 83036; 84439; 84443; 84450; 84460